=== PATIENT | female | born 1985 | race African-American/Black ===

== ENCOUNTER 2016-11-20 20:08 | Emergency (ER) | payer MEDICAID, OTHER ==
[~2016-11-20] VITALS: Ht 157.5 cm; Wt 57.2 kg
[~2016-11-20 20:08] MED LIST: ALBUTEROL SULF8.5 GM INH; AZITHROMYCIN250 MG ORAL; BENADRYL25 MG ORAL; BENADRYL25 MG PO; BENADRYL50 MG ORAL; CEPHALEXIN500 MG ORAL; CIPRO500 MG PO; CIPROFLOXACIN500 M2 ORAL; COLACE100 MG PO; DILAUDID1 MG/1 ML ORAL; DILAUDID4 MG ORAL; DSS100 MG ORAL; FERROUS SULFAT325 MG PO; FOLIC ACID1 MG ORAL; HYDREA500 MG PO; ILOTYCIN3.5 GM TOP; MACROBID 100 M100 MG PO; MACROBID100 MG ORAL; METROGEL-VAGINA70 G1 VAGIN; METRONIDAZOLE500 MG ORAL; NKM; NORCO 10-325 T1 EACH ORAL; NORCO 10/3251 EA ORAL; NORCO 5-325 TA1 EACH ORAL; NORCO 5/3251 TAB ORAL; NORCO1 EA ORAL; ONDANSETRON ODT4 MG ORAL; PERCOCET 10-321 EACH ORAL; PREDNISONE20 MG ORAL; TRAMADOL HCL50 MG ORAL; TYLENOL EXTRA500 MG ORAL; VICODIN 5-5001 EACH ORAL; ZANTAC150 MG PO; ZOFRAN ODT4 MG ORAL; ZOFRAN4 MG ORAL; ZOFRAN8 MG ORAL; ZOLOFT50 MG ORAL
[2016-11-20 20:20] VITALS: BP 118/86
[2016-11-20] MEDS ORDERED: HYDREA500 MG PO (20:26)
[2016-11-20] MEDS ORDERED: DiphenhydrAMINE 50mg/ml Inj IM ONE (20:30)
[2016-11-20] MEDS ORDERED: HYDROmorphone 1mg/ml Carpuject IM ONE (20:30)
--- NOTE | 2016-11-20 20:48 | Emergency Room Report ---
History of Present Illness General Chief Complaint: Pain Source: Patient Present Illness HPI 31YOF c.o bilateral hip pain for 2 days. Believes its her "sickle cell pain crisis." Been taking Q4-6 dilaudid PO at home and percocet for breakthru pain without much improvement and "didnt want to overdose." Denies chest pain, SOB, fever/chills, palpitations, syncope, dizziness. Last blood transfusion was 6 months prior. Ran out of hydroxyurea a few days ago as well. Also c/o foreign body sensation in both ears. [place] pain/itch to left ear, "tried to clean it out with long qtip" and believes something broke off. Allergies: Coded Allergies: METOCLOPRAMIDE (Verified Allergy, Mild, Rash, 07/27/12) KETOROLAC (Verified Allergy, Unknown, 11/25/13) MORPHINE (Verified Allergy, Unknown, 11/20/16) PROCHLORPERAZINE EDISYLATE (Verified Adverse Reaction, Intermediate, Shortness of Breath, 05/30/12) ANX PROCHLORPERAZINE MALEATE (Verified Adverse Reaction, Intermediate, Shortness of Breath, 05/30/12) ANX Patient History Past Medical History: other - SCD Past Surgical History: none Pertinent Family History: none Social History: Denies: alcohol use, drug use, smoking Last Menstrual Period: NOVEMBER 09 Now: No Immunizations: UTD Reviewed Nursing Documentation: PMH: Agreed, PSxH: Agreed Nursing Documentation-PMH Hx Hypertension: No Hx Pacemaker: No Hx Asthma: Yes Hx COPD: No Hx Diabetes: No Hx Cancer: No Hx Neurological Problems: No Hx Cerebrovascular Accident: No Hx Seizures: No Review of Systems All Other Systems: negative except mentioned in HPI Physical Exam Vital Signs Date Time Temp Pulse Resp B/P Pulse Ox O2 Delivery O2 Flow Rate FiO2 11/20/16 20:12 98.8 86 18 120/84 96 Room Air Sp02 EP Interpretation: reviewed, normal General Appearance: normal inspection, well appearing, no apparent distress, alert, GCS 15, non-toxic Head: normocephalic, atraumatic Eyes: bilateral eye EOMI, bilateral eye PERRL ENT: hearing grossly normal, normal pharynx, no angioedema, normal voice, other - Left ear canal: 2 foreign bodies visualized, one plastic, one cotton. After removal, TM is bulging with canal erythema. Also cotton visualized in right ear canal. TM normal after FB removed Neck: normal inspection, full range of motion, supple, no bony tend Respiratory: normal inspection, lungs clear, normal breath sounds, no rhonchi, no respiratory distress, no retraction, no accessory muscle use, no wheezing Cardiovascular #1: regular rate, rhythm, no edema Gastrointestinal: normal inspection, normal bowel sounds, non tender, soft, no guarding, no hernia Genitourinary: no CVA tenderness Musculoskeletal: normal inspection, back normal, normal range of motion, Hoa' s Sign negative Neurologic: normal inspection, alert, oriented x3, responsive, food service III-XII nml as tested, motor strength/tone normal, speech normal Psychiatric: normal inspection, judgement/insight normal, mood/affect normal Skin: normal inspection, normal color, no rash Procedures Additional Procedure Procedure Narrative Foreign body removal both ears 2X FBs removed from left ear under otoscope light guidance 1x FB removed from right ear Medical Decision Making Diagnostic Impression: Primary Impression: chronic pain Additional Impressions: Foreign body of ear, left Qualified Codes: T16.2XXA - Foreign body in left ear, initial encounter Foreign body of ear, right Qualified Codes: T16.1XXA - Foreign body in right ear, initial encounter Otitis media of left ear ER Course Body pain - low suspicion for acute chest syndrome as patient denies chest pain, SOB, fever/chills, URI symptoms. VSS. Not hypoxic or tachycardic. Normotensive - ?whether is actual sickle cell pain crisis - Patient refused IV access, lab testing. States "I just need a pain injection. " - Hydroxyurea refilled Foreign bodies removed from both ears Underlying left otitis media Rx Abx PMD followup Last Vital Signs Date Time Temp Pulse Resp B/P Pulse Ox O2 Delivery O2 Flow Rate FiO2 11/20/16 20:20 98.6 82 17 118/86 98 Room Air Status: improved Disposition: HOME, SELF-CARE Condition: Improved Scripts Amoxicillin* (AMOXIL*) 500 Mg Capsule 500 MG ORAL THREE TIMES A DAY for 7 Days, #21 CAP Prov: KVNG OLIVAREZ M.D. 11/20/16 Hydroxyurea* (HYDREA*) 500 Mg Capsule 500 MG PO BID for 30 Days, #60 CAP Prov: KVNG OLIVAREZ M.D. 11/20/16 Referrals: [facility] (PCP) Patient Instructions: Chronic Pain KVNG OLIVAREZ M.D. November 20, 2016 20:48
[2016-11-20] MEDS ORDERED: AMOXICILLIN500 MG ORAL (21:00)
[2016-11-20 21:10] VITALS: BP 122/79
== END 2016-11-20 21:10 | disposition home or self-care (01) ==
LOC: EMR 20:25
DX: G89.29 Other chronic pain (principal); T16.2XXA Foreign body in left ear, initial encounter; T16.1XXA Foreign body in right ear, initial encounter; X58.XXXA Exposure to other specified factors, initial encounter; Y93.9 Activity, unspecified; Y99.9 Unspecified external cause status; H66.92 Otitis media, unspecified, left ear; D57.1 Sickle-cell disease without crisis; J45.909 Unspecified asthma, uncomplicated; M25.551 Pain in right hip; M25.552 Pain in left hip; Z88.5 Allergy status to narcotic agent
CPT/HCPCS: 69200; 96372; 99284; J1170; J1200; Z7502

== ENCOUNTER 2016-11-30 03:09 | Emergency (ER) | payer MEDICAID, OTHER ==
[~2016-11-30] VITALS: Ht 157.5 cm; Wt 54.4 kg
[~2016-11-30 03:09] MED LIST changes: +AMOXICILLIN500 MG ORAL
[2016-11-30 03:19] VITALS: BP 114/80
--- NOTE | 2016-11-30 03:39 | Emergency Room Report ---
History of Present Illness General Chief Complaint: Pain Source: Patient Present Illness HPI Patient presents with complaints of body pain And reporting sickle cell crisis Patient reports that she had some epigastric discomfort and diarrhea as well Denies any chest pain or shortness of breath denies any back or flank pain Denies any vomiting Symptoms ongoing for the past 2-3 days Denies any rash Allergies: Coded Allergies: METOCLOPRAMIDE (Verified Allergy, Mild, Rash, 07/27/12) KETOROLAC (Verified Allergy, Unknown, 11/25/13) MORPHINE (Verified Allergy, Unknown, 11/20/16) PROCHLORPERAZINE EDISYLATE (Verified Adverse Reaction, Intermediate, Shortness of Breath, 05/30/12) ANX PROCHLORPERAZINE MALEATE (Verified Adverse Reaction, Intermediate, Shortness of Breath, 05/30/12) ANX Patient History Past Medical History: see triage record Pertinent Family History: none Last Menstrual Period: 11/08/16 Now: No Reviewed Nursing Documentation: PMH: Agreed, PSxH: Agreed Nursing Documentation-PMH Hx Hypertension: No Hx Pacemaker: No Hx Asthma: Yes Hx COPD: No Hx Diabetes: No Hx Cancer: No Hx Neurological Problems: No Hx Cerebrovascular Accident: No Hx Seizures: No Review of Systems All Other Systems: negative except mentioned in HPI Physical Exam Vital Signs Date Time Temp Pulse Resp B/P Pulse Ox O2 Delivery O2 Flow Rate FiO2 11/30/16 03:12 97.7 65 16 114/80 100 Sp02 EP Interpretation: reviewed, normal General Appearance: well appearing, no apparent distress Head: normocephalic, atraumatic Eyes: bilateral eye EOMI, bilateral eye PERRL ENT: hearing grossly normal, normal pharynx, TMs + canals normal, uvula midline Neck: full range of motion, supple, no meningismus, no bony tend Respiratory: lungs clear, normal breath sounds, no rhonchi, no respiratory distress, no retraction, no accessory muscle use Cardiovascular #1: normal peripheral pulses, regular rate, rhythm, no edema, no gallop, no JVD, no murmur Gastrointestinal: normal bowel sounds, non tender, soft, no mass, no organomegaly, non-distended, no guarding, no hernia, no pulsatile mass, no rebound Genitourinary: no CVA tenderness Musculoskeletal: normal inspection Neurologic: oriented x3, responsive, cnc field service engineer III-XII nml as tested, motor strength/ tone normal, sensory intact Psychiatric: mood/affect normal Skin: normal color, no rash, warm/dry, palpation normal Lymphatic: normal inspection, no adenopathy Medical Decision Making Diagnostic Impression: Primary Impression: Opioid dependence Additional Impression: Myalgia ER Course Multiple differentials considered including but not limited to sickle cell crisis, gastroenteritis, appendicitis, UTI Patient did not provide urine sample for testing Initially reported that she would usually get IM injection of pain medicine At this time she was informed that were pending on blood work the for further intervention She did receive Zofran and oxygenation Patient's reticulocyte count is normal I had discussion with her regarding her pain syndrome, and her presumption of sickle cell crisis She requires better outpatient followup Labs Test 11/30/16 03:45 White Blood Count 6.5 K/UL (4.8-10.8) Red Blood Count 3.70 M/UL (4.20-5.40) Hemoglobin 9.3 G/DL (12.0-16.0) Hematocrit 30.3 % (37.0-47.0) Mean Corpuscular Volume 82 FL (80-99) Mean Corpuscular Hemoglobin 25.3 PG (27.0-31.0) Mean Corpuscular Hemoglobin Concent 30.8 G/DL (32.0-36.0) Red Cell Distribution Width 15.1 % (11.6-14.8) Platelet Count 293 K/UL (150-450) Mean Platelet Volume 6.9 FL (6.5-10.1) Neutrophils (%) (Auto) 44.2 % (45.0-75.0) Lymphocytes (%) (Auto) 46.5 % (20.0-45.0) Monocytes (%) (Auto) 5.5 % (1.0-10.0) Eosinophils (%) (Auto) 2.6 % (0.0-3.0) Basophils (%) (Auto) 1.2 % (0.0-2.0) Reticulocyte Count 1.0 % (0.0-2.0) Sodium Level 139 mEQ/L (135-145) Potassium Level 3.6 mEQ/L (3.4-4.9) Chloride Level 103 mEQ/L (98-107) Carbon Dioxide Level 24 mEQ/L (20-30) Anion Gap 12 (5-15) Blood Urea Nitrogen 13 mg/dL (7-23) Creatinine 0.7 mg/dL (0.5-0.9) Estimat Glomerular Filtration Rate > 60 mL/min (>60) Glucose Level 97 mg/dL (74-106) Calcium Level 8.5 mg/dL (8.6-10.2) Lipase 63 U/L (< 60) Last Vital Signs Date Time Temp Pulse Resp B/P Pulse Ox O2 Delivery O2 Flow Rate FiO2 11/30/16 03:19 97.7 66 16 114/80 100 Status: improved Disposition: HOME, SELF-CARE Condition: Improved Referrals: [facility] (PCP) Additional Instructions: Patient is provided with the discharge instructions notified to follow up with primary doctor in the next 2-3 days otherwise return to the er with any worsening symptoms. Please note that this report is being documented using [employer] technology. This can lead to erroneous entry secondary to incorrect interpretation by the dictating instrument. YANELY SPARKS D.O. Nov 30, 2016 03:39
[2016-11-30 03:56] LABS: BASOPHILS % (AUTO) 1.2 % (0.0-2.0); EOSINOPHILS % (AUTO) 2.6 % (0.0-3.0); LYMPHOCYTES % (AUTO) 46.5 % (20.0-45.0); MEAN CORPUSCULAR HEMOGLOBIN 25.3 PG (27.0-31.0); MEAN CORPUSCULAR HGB CONC 30.8 G/DL (32.0-36.0); MEAN CORPUSCULAR VOLUME 82 FL (80-99); MEAN PLATELET VOLUME 6.9 FL (6.5-10.1); MONOCYTES % (AUTO) 5.5 % (1.0-10.0); NEUTROPHILS % (AUTO) 44.2 % (45.0-75.0); PLATELET COUNT 293 K/UL (150-450); RED CELL DISTRIBUTION WIDTH 15.1 % (11.6-14.8); WHITE BLOOD COUNT 6.5 K/UL (4.8-10.8)
[2016-11-30 04:15] LABS: ANION GAP 12 (5-15); CALCIUM 8.5 mg/dL (8.6-10.2); CARBON DIOXIDE 24 mEQ/L (20-30); CHLORIDE 103 mEQ/L (98-107); CREATININE 0.7 mg/dL (0.5-0.9); GLOMERULAR FILTRATION RATE > 60 mL/min (>60); HEMOLYSIS 3; LIPASE 63 U/L (< 60); POTASSIUM 3.6 mEQ/L (3.4-4.9); SODIUM 139 mEQ/L (135-145)
[2016-11-30 04:55] VITALS: BP 121/67
[2016-11-30 05:00] VITALS: BP 114/80
== END 2016-11-30 05:00 | disposition home or self-care (01) ==
LOC: EMR 03:27
DX: F11.20 Opioid dependence, uncomplicated (principal); M79.1 Myalgia; J45.909 Unspecified asthma, uncomplicated; Z88.6 Allergy status to analgesic agent; Z88.8 Allergy status to other drugs, medicaments and biological substances
CPT/HCPCS: 36415; 80048; 83690; 85025; 85044; 99284

== ENCOUNTER 2017-01-01 19:01 | Emergency (ER) | payer OTHER ==
[~2017-01-01] VITALS: Ht 157.5 cm; Wt 57.2 kg
[2017-01-01 19:18] VITALS: BP 110/73
--- NOTE | 2017-01-01 19:29 | Emergency Room Report ---
History of Present Illness General Chief Complaint: Pain Source: Patient Present Illness HPI patient is a 31-year-old female who presents with chest pain and generalized also aches typical for her sickle cell crisis. Patient has a known history of sickle cell disease. She states her last episode was approximately one month ago. Patient denies any fevers or chills or any other new or concerning symptoms Allergies: Coded Allergies: METOCLOPRAMIDE (Verified Allergy, Mild, Rash, 07/27/12) KETOROLAC (Verified Allergy, Unknown, 11/25/13) MORPHINE (Verified Allergy, Unknown, 11/20/16) PROCHLORPERAZINE EDISYLATE (Verified Adverse Reaction, Intermediate, Shortness of Breath, 05/30/12) ANX PROCHLORPERAZINE MALEATE (Verified Adverse Reaction, Intermediate, Shortness of Breath, 05/30/12) ANX Patient History Past Medical History: see triage record Past Surgical History: none Pertinent Family History: none Social History: Reports: smoking Last Menstrual Period: 12/27/16 Now: No Nursing Documentation-[facility] Past Medical History: No History, Except For Hx Hypertension: No Hx Pacemaker: No Hx Asthma: Yes Hx COPD: No Hx Diabetes: No Hx Cancer: No Hx Neurological Problems: No Hx Cerebrovascular Accident: No Hx Seizures: No Review of Systems Constitutional: Denies: chills, fever Eye: Denies: blurred vision, double vision Respiratory: Denies: cough, shortness of breath Cardiovascular: Reports: chest pain, Denies: palpitations, syncope Gastrointestinal: Denies: abdominal pain, nausea, vomiting Genitourinary: Denies: discharge, dysuria Musculoskeletal: Reports: joint pain, Denies: back pain Skin: Denies: change in color, rash Neurological: Denies: headache, numbness, paresthesia Hematologic/Lymphatic: Denies: anemia, easy bleeding, easy bruising Allergic: Denies: hay fever, urticaria Physical Exam Vital Signs Date Time Temp Pulse Resp B/P Pulse Ox O2 Delivery O2 Flow Rate FiO2 01/01/17 19:07 98.2 80 15 110/73 100 Room Air Sp02 EP Interpretation: reviewed, normal General Appearance: alert, GCS 15, non-toxic, mild distress Head: normocephalic, atraumatic Eyes: bilateral eye PERRL, bilateral eye normal inspection ENT: hearing grossly normal, normal pharynx, no angioedema, normal voice, other - White tissue to the right external ear canal Neck: full range of motion, supple/symm/no masses Respiratory: chest non-tender, lungs clear, normal breath sounds, speaking full sentences Cardiovascular #1: regular rate, rhythm, no edema Gastrointestinal: normal bowel sounds, non tender, soft, non-distended, no guarding, no rebound Musculoskeletal: back normal, gait/station normal, normal range of motion, non- tender, calf tenderness Neurologic: alert, oriented x3, responsive, motor strength/tone normal, sensory intact, speech normal Skin: normal color, no rash, warm/dry, well hydrated Procedures Additional Procedure Procedure Narrative 4 body removal to the right ear canal. A Q-tip and tissue paper work move the right external ear canal by me using alligator forceps under direct visualization. Repeat examination after removal foreign body showed no evidence of tympanic membrane perforation or rupture, mild erythema to the canal but no abrasions or bleeding. Medical Decision Making ER Course patient is a 31-year-old sickle cell patient who presented with chest pain. Chest x-ray and EKG are unremarkable. Patient received pain medications with improvement. We are currently waiting on laboratory results to come backas the patient is a difficult stick. Patient also was noted to have foreign body to the right ear canal which has been removed by me. Patient will be signed out to the oncoming physician as my clinical shift has ended EKG Diagnostic Results EKG Time: 19:30 Rate: normal Rhythm: NSR ST Segments: no acute changes Chest X-Ray Diagnostic Results Chest X-Ray Diagnostic Results : Chest X-Ray Ordered: Yes # of Views/Limited/Complete: 1 View Indication: Chest Pain EP Interpretation: Yes Interpretation: no consolidation, no effusion, no pneumothorax, no acute cardiopulmonary disease Impression: No acute disease Interpreting ER Provider: electronically signed by Dr. Maurice Last Vital Signs Date Time Temp Pulse Resp B/P Pulse Ox O2 Delivery O2 Flow Rate FiO2 01/01/17 19:18 98.2 15 110/73 100 Room Air 01/01/17 19:07 80 Status: improved RITO MAURICE Jan 01, 2017 19:29
[2017-01-01] MEDS ORDERED: DiphenhydrAMINE 50mg/ml Inj IVP ONE (19:30)
[2017-01-01] MEDS ORDERED: Ondansetron ODT 8mg tab ORAL ONE (19:45)
[2017-01-01] MEDS ORDERED: DiphenhydrAMINE 50mg/ml Inj IM ONE (19:45)
[2017-01-01 21:22] VITALS: BP 124/86
[2017-01-01 23:04] LABS: BASOPHILS % (AUTO) 0.7 % (0.0-2.0); EOSINOPHILS % (AUTO) 2.1 % (0.0-3.0); LYMPHOCYTES % (AUTO) 43.9 % (20.0-45.0); MEAN CORPUSCULAR HEMOGLOBIN 26.6 PG (27.0-31.0); MEAN CORPUSCULAR HGB CONC 31.6 G/DL (32.0-36.0); MEAN CORPUSCULAR VOLUME 84 FL (80-99); MONOCYTES % (AUTO) 5.2 % (1.0-10.0); NEUTROPHILS % (AUTO) 48.2 % (45.0-75.0); PLATELET COUNT 299 K/UL (150-450); RED BLOOD COUNT 3.62 M/UL (4.20-5.40); RED CELL DISTRIBUTION WIDTH 14.1 % (11.6-14.8); WHITE BLOOD COUNT 9.1 K/UL (4.8-10.8)
[2017-01-01 23:25] LABS: ALANINE AMINOTRANSFERASE 10 U/L (3-33); ALBUMIN/GLOBULIN RATIO 1.4 (1.0-2.7); ANION GAP 10 (5-15); ASPARTATE AMINO TRANSFERASE 20 U/L (5-40); CALCIUM 9.3 mg/dL (8.6-10.2); CARBON DIOXIDE 27 mEQ/L (20-30); CHLORIDE 101 mEQ/L (98-107); CREATININE 0.8 mg/dL (0.5-0.9); GLOMERULAR FILTRATION RATE > 60 mL/min (>60); HEMOLYSIS 18; POTASSIUM 3.9 mEQ/L (3.4-4.9); SODIUM 138 mEQ/L (135-145); TOTAL PROTEIN 6.6 g/dL (6.6-8.7); TROPONIN I < 0.30 ng/mL (<=0.30)
[2017-01-02] MEDS ORDERED: HYDROmorphone 1mg/ml Carpuject IVP ONE (00:45)
[2017-01-02] MEDS ORDERED: NORCO 5-325 TA1 EACH ORAL (01:10)
[2017-01-02] MEDS ORDERED: HYDROmorphone 1mg/ml Carpuject IM ONE (01:15)
[2017-01-02] MEDS ORDERED: DiphenhydrAMINE 50mg/ml Inj IM ONE (01:15)
[2017-01-02 01:48] VITALS: BP 122/64
[2017-01-02 01:57] LABS: RETICULOCYTE COUNT 1.7 % (0.0-2.0)
--- NOTE | 2017-01-02 11:37 | Diagnostic Imaging Report ---
Indication: Chest pain Technique: One view of the chest Comparison: 03/16/2014 Findings: Lungs and pleural spaces are clear. Heart size is normal. No significant change Impression: No acute process
--- NOTE | 2017-01-02 13:30 | Cardiology Report ---
APPROVED REPORT EKG Measurement Heart [id number] Normal sinus rhythm Normal ECG
== END 2017-01-02 01:48 | disposition home or self-care (01) ==
LOC: EMR 19:38
DX: R07.89 Other chest pain (principal); D57.1 Sickle-cell disease without crisis; F17.200 Nicotine dependence, unspecified, uncomplicated; T16.1XXA Foreign body in right ear, initial encounter; X58.XXXA Exposure to other specified factors, initial encounter; Y92.9 Unspecified place or not applicable; J45.909 Unspecified asthma, uncomplicated
CPT/HCPCS: 36415; 69200; 71010; 80053; 84484; 85025; 85044; 93005; 96372; 96374; 99284; J1170; J1200; Q0162; Z7502

== ENCOUNTER 2017-01-07 10:51 | Emergency (ER) | payer OTHER ==
[~2017-01-07] VITALS: Ht 157.5 cm; Wt 57.2 kg
--- NOTE | 2017-01-07 11:07 | Emergency Room Report ---
History of Present Illness General Chief Complaint: Chest Pain Source: Patient Present Illness HPI Patient is a 31-year-old female who presented for chest pain. Patient had prior history of sickle cell disease. Patient was seen recently for similar type symptoms. Patient denied any fever. She denied any shortness of breath. Patient denied any cough. She had recently been seen was given pain medications emergency department. Patient is followed by Dr. Gonzalez to she reports having pain to her chest and back. This is typical for her prior episodes of pain. Allergies: Coded Allergies: METOCLOPRAMIDE (Verified Allergy, Mild, Rash, 07/27/12) KETOROLAC (Verified Allergy, Unknown, 11/25/13) MORPHINE (Verified Allergy, Unknown, 11/20/16) PROCHLORPERAZINE EDISYLATE (Verified Adverse Reaction, Intermediate, Shortness of Breath, 05/30/12) ANX PROCHLORPERAZINE MALEATE (Verified Adverse Reaction, Intermediate, Shortness of Breath, 05/30/12) ANX Patient History Past Medical History: see triage record Last Menstrual Period: 12/29/16 Now: No Reviewed Nursing Documentation: PMH: Agreed, PSxH: Agreed Nursing Documentation-PMH Hx Hypertension: No Hx Pacemaker: No Hx Asthma: Yes Hx COPD: No Hx Diabetes: No Hx Cancer: No Hx Neurological Problems: No Hx Cerebrovascular Accident: No Hx Seizures: No Review of Systems All Other Systems: negative except mentioned in HPI Physical Exam Vital Signs Date Time Temp Pulse Resp B/P Pulse Ox O2 Delivery O2 Flow Rate FiO2 01/07/17 10:56 98.4 92 14 99/67 95 Sp02 EP Interpretation: reviewed, normal General Appearance: normal inspection, well appearing, no apparent distress, alert, GCS 15 Head: atraumatic ENT: normal ENT inspection, hearing grossly normal, normal voice Neck: normal inspection, full range of motion, supple, no bony tend Respiratory: normal inspection, lungs clear, normal breath sounds, no respiratory distress, no retraction, no wheezing Cardiovascular #1: regular rate, rhythm, no edema Gastrointestinal: normal inspection, normal bowel sounds, non tender, soft, no guarding, no hernia Genitourinary: no CVA tenderness Musculoskeletal: normal inspection, back normal, normal range of motion Neurologic: normal inspection, alert, responsive, speech normal Psychiatric: normal inspection, judgement/insight normal, mood/affect normal Skin: normal inspection, normal color, no rash Medical Decision Making Diagnostic Impression: Primary Impression: Sickle cell disease with crisis ER Course Patient presented for sickle cell pain. Differential diagnosis included was not limited to sickle cell crisis, aplastic crisis, osteomyelitis drug-seeking behavior, among others. Because of complexity of patient's case laboratory testing and imaging studies were ordered. The patient was given pain medications.The patient noted have continued pain. Laboratory testing showed a slightly decreased reticulocyte count compared to baseline. Patient was noted to have continued pain. Patient was discussed with Dr. Carrasco who agreed to accept patient in transfer. Labs Test 01/07/17 11:15 White Blood Count 8.6 K/UL (4.8-10.8) Red Blood Count 3.39 M/UL (4.20-5.40) Hemoglobin 9.1 G/DL (12.0-16.0) Hematocrit 27.6 % (37.0-47.0) Mean Corpuscular Volume 81 FL (80-99) Mean Corpuscular Hemoglobin 26.8 PG (27.0-31.0) Mean Corpuscular Hemoglobin Concent 32.9 G/DL (32.0-36.0) Red Cell Distribution Width 13.6 % (11.6-14.8) Platelet Count 290 K/UL (150-450) Mean Platelet Volume 6.9 FL (6.5-10.1) Neutrophils (%) (Auto) 62.6 % (45.0-75.0) Lymphocytes (%) (Auto) 29.3 % (20.0-45.0) Monocytes (%) (Auto) 4.8 % (1.0-10.0) Eosinophils (%) (Auto) 2.3 % (0.0-3.0) Basophils (%) (Auto) 1.1 % (0.0-2.0) Sodium Level 141 mEQ/L (135-145) Potassium Level 3.9 mEQ/L (3.4-4.9) Chloride Level 104 mEQ/L (98-107) Carbon Dioxide Level 25 mEQ/L (20-30) Anion Gap 12 (5-15) Blood Urea Nitrogen 11 mg/dL (7-23) Creatinine 0.8 mg/dL (0.5-0.9) Estimat Glomerular Filtration Rate > 60 mL/min (>60) Glucose Level 112 mg/dL (74-106) Calcium Level 8.7 mg/dL (8.6-10.2) Total Bilirubin < 0.2 mg/dL (0.0-1.2) Aspartate Amino Transf (AST/SGOT) 28 U/L (5-40) Alanine Aminotransferase (ALT/SGPT) 10 U/L (3-33) Alkaline Phosphatase 78 U/L (35-104) Total Protein 6.3 g/dL (6.6-8.7) Albumin 3.5 g/dL (3.5-5.2) Globulin 2.8 g/dL Albumin/Globulin Ratio 1.2 (1.0-2.7) Last Vital Signs Date Time Temp Pulse Resp B/P Pulse Ox O2 Delivery O2 Flow Rate FiO2 01/07/17 10:56 98.4 92 14 99/67 95 Status: improved Dante Cardona Jan 07, 2017 11:07
[2017-01-07 11:10] VITALS: BP 116/82
[2017-01-07] MEDS ORDERED: DiphenhydrAMINE 50mg/ml Inj IM ONE (11:15)
[2017-01-07 11:41] LABS: BASOPHILS % (AUTO) 1.1 % (0.0-2.0); EOSINOPHILS % (AUTO) 2.3 % (0.0-3.0); LYMPHOCYTES % (AUTO) 29.3 % (20.0-45.0); MEAN CORPUSCULAR HEMOGLOBIN 26.8 PG (27.0-31.0); MEAN CORPUSCULAR HGB CONC 32.9 G/DL (32.0-36.0); MEAN CORPUSCULAR VOLUME 81 FL (80-99); MEAN PLATELET VOLUME 6.9 FL (6.5-10.1); MONOCYTES % (AUTO) 4.8 % (1.0-10.0); NEUTROPHILS % (AUTO) 62.6 % (45.0-75.0); PLATELET COUNT 290 K/UL (150-450); RED BLOOD COUNT 3.39 M/UL (4.20-5.40); RED CELL DISTRIBUTION WIDTH 13.6 % (11.6-14.8); WHITE BLOOD COUNT 8.6 K/UL (4.8-10.8)
[2017-01-07] MEDS ORDERED: HYDROmorphone 1mg/ml Carpuject IVP ONE ×2 (12:15→15:30)
[2017-01-07 12:24] LABS: ALANINE AMINOTRANSFERASE 10 U/L (3-33); ALBUMIN/GLOBULIN RATIO 1.2 (1.0-2.7); ANION GAP 12 (5-15); ASPARTATE AMINO TRANSFERASE 28 U/L (5-40); CALCIUM 8.7 mg/dL (8.6-10.2); CARBON DIOXIDE 25 mEQ/L (20-30); CHLORIDE 104 mEQ/L (98-107); CREATININE 0.8 mg/dL (0.5-0.9); GLOMERULAR FILTRATION RATE > 60 mL/min (>60); HEMOLYSIS 7; POTASSIUM 3.9 mEQ/L (3.4-4.9); SODIUM 141 mEQ/L (135-145); TOTAL PROTEIN 6.3 g/dL (6.6-8.7)
[2017-01-07 12:35] LABS: RETICULOCYTE COUNT 1.4 % (0.0-2.0)
[2017-01-07 13:30] VITALS: BP 112/82
[2017-01-07] MEDS ORDERED: DiphenhydrAMINE 50mg/ml Inj IVP ONE (13:30)
[2017-01-07 15:34] VITALS: BP 111/81
[2017-01-07 15:45] VITALS: BP 111/61
== END 2017-01-07 15:45 | disposition short-term general hospital (02) ==
LOC: EMR 11:08
DX: D57.00 Hb-SS disease with crisis, unspecified (principal); J45.909 Unspecified asthma, uncomplicated; Z88.8 Allergy status to other drugs, medicaments and biological substances
CPT/HCPCS: 36415; 80053; 85025; 85044; 93005; 96361; 96372; 96374; 96375; 99284; J1170; J1200

== ENCOUNTER 2017-01-13 23:40 | Emergency (ER) | payer OTHER ==
[~2017-01-13] VITALS: Ht 157.5 cm; Wt 57.2 kg
[2017-01-13 23:50] VITALS: BP 105/79
[2017-01-14] MEDS ORDERED: DiphenhydrAMINE 50mg/ml Inj IM ONE
--- NOTE | 2017-01-14 00:03 | Emergency Room Report ---
History of Present Illness General Chief Complaint: Pain Source: Patient Present Illness HPI This is a 31-year-old female presented after increased chest pain. Patient had recently been seen in this emergency department for similar type symptoms and was hospitalized after consent for sickle cell crisis. Patient had prior history of sickle cell disease. She reports being compliant with her medications. Patient had recently had her Haldol dosage increased. Patient stated that she had increased pain. Allergies: Coded Allergies: METOCLOPRAMIDE (Verified Allergy, Mild, Rash, 07/27/12) KETOROLAC (Verified Allergy, Unknown, 11/25/13) MORPHINE (Verified Allergy, Unknown, 11/20/16) PROCHLORPERAZINE EDISYLATE (Verified Adverse Reaction, Intermediate, Shortness of Breath, 05/30/12) ANX PROCHLORPERAZINE MALEATE (Verified Adverse Reaction, Intermediate, Shortness of Breath, 05/30/12) ANX Patient History Past Medical History: see triage record Last Menstrual Period: 12/29/16 Reviewed Nursing Documentation: PMH: Agreed, PSxH: Agreed Nursing Documentation-PMH Past Medical History: No History, Except For Hx Hypertension: No Hx Pacemaker: No Hx Asthma: Yes Hx COPD: No Hx Diabetes: No Hx Cancer: No Hx Neurological Problems: No Hx Cerebrovascular Accident: No Hx Seizures: No Review of Systems All Other Systems: negative except mentioned in HPI Physical Exam Vital Signs Date Time Temp Pulse Resp B/P Pulse Ox O2 Delivery O2 Flow Rate FiO2 01/13/17 23:48 98.2 95 16 105/79 100 Room Air Sp02 EP Interpretation: reviewed, normal General Appearance: normal inspection, well appearing, no apparent distress, alert, GCS 15, non-toxic Head: atraumatic ENT: normal ENT inspection, hearing grossly normal, normal voice Neck: normal inspection, full range of motion, supple, no bony tend Respiratory: normal inspection, lungs clear, normal breath sounds, no respiratory distress, no retraction, no wheezing Cardiovascular #1: regular rate, rhythm, no edema Gastrointestinal: normal inspection, normal bowel sounds, non tender, soft, no guarding, no hernia Genitourinary: no CVA tenderness Musculoskeletal: normal inspection, back normal, normal range of motion Neurologic: normal inspection, alert, responsive, speech normal Psychiatric: normal inspection, judgement/insight normal, mood/affect normal Skin: normal inspection, normal color, no rash Medical Decision Making Diagnostic Impression: Primary Impression: Opioid dependence Additional Impression: Sickle cell anemia ER Course Patient was at for chest pain. Because of complexity of patient's case laboratory testing and imaging studies were ordered. . Patient recently had imaging performed as well as cardiac workup. The patient was given IM pain medications.The patient had reportedly just had a laboratory workup done at transferred facility. The patient the was given pain medications. The patient had improvement her pain was subsequently discharge. Last Vital Signs Date Time Temp Pulse Resp B/P Pulse Ox O2 Delivery O2 Flow Rate FiO2 01/13/17 23:48 98.2 95 16 105/79 100 Room Air Status: improved Disposition: HOME, SELF-CARE Condition: Stable Dante Cardona Jan 14, 2017 00:03
[2017-01-14 01:11] VITALS: BP 102/77
== END 2017-01-14 01:11 | disposition home or self-care (01) ==
LOC: EMR 01-14 00:23
DX: F11.20 Opioid dependence, uncomplicated (principal); D57.1 Sickle-cell disease without crisis; J45.909 Unspecified asthma, uncomplicated; R07.9 Chest pain, unspecified; Z88.6 Allergy status to analgesic agent; Z88.8 Allergy status to other drugs, medicaments and biological substances
CPT/HCPCS: 96372; 99283; J1170; J1200

== ENCOUNTER 2017-01-31 13:04 | Emergency (ER) | payer OTHER ==
[~2017-01-31] VITALS: Ht 157.5 cm; Wt 57.2 kg
[2017-01-31 13:20] VITALS: BP 105/65
[2017-01-31] MEDS ORDERED: HYDROmorphone 1mg/ml Carpuject IM ONE (13:45)
[2017-01-31] MEDS ORDERED: DiphenhydrAMINE 50mg/ml Inj IM ONE (13:45)
[2017-01-31 14:35] LABS: APPEARANCE,URINE SLIGHTLY CLOUDY; KETONES,URINE NEGATIVE (NEGATIVE); LEUKOCYTE ESTERASE ,URINE NEGATIVE (NEGATIVE); NITRITE,URINE NEGATIVE (NEGATIVE); PH,URINE 5 (4.5-8.0); PROTEIN,URINE NEGATIVE (NEGATIVE); UROBILINOGEN,URINE NORMAL MG/DL (0.0-1.0)
[2017-01-31 14:52] LABS: BACTERIA,URINE MODERATE /HPF; RBC,URINE 0-2 /HPF (0 - 2); SQUAMOUS EPITHELIAL CELL,UR MODERATE /LPF (NONE/OCC); WBC,URINE 0-2 /HPF (0 - 2)
[2017-01-31 14:53] LABS: AMORPHOUS SEDIMENT,UR FEW /LPF; MUCUS,URINE FEW /LPF (NONE/OCC)
[2017-01-31 14:59] VITALS: BP 108/68
[2017-01-31 15:00] VITALS: BP 108/68
--- NOTE | 2017-01-31 16:29 | Emergency Room Report ---
History of Present Illness General Chief Complaint: Pain Source: Patient Present Illness HPI 31-year-old female presents to ER for evaluation. Patient has history of sickle cell and states she is having a crisis. Patient complaining of bilateral hip pain. Pain is a 10 out of 10, throbbing, nonradiating. Started today. Denies chest pain or shortness of breath. Denies fevers chills. Patient states she does not have any medication for pain. No other aggravating relieving factors. phil any other associated symptoms Allergies: Coded Allergies: METOCLOPRAMIDE (Verified Allergy, Mild, Rash, 07/27/12) KETOROLAC (Verified Allergy, Unknown, 11/25/13) MORPHINE (Verified Allergy, Unknown, 11/20/16) PROCHLORPERAZINE EDISYLATE (Verified Adverse Reaction, Intermediate, Shortness of Breath, 05/30/12) ANX PROCHLORPERAZINE MALEATE (Verified Adverse Reaction, Intermediate, Shortness of Breath, 05/30/12) ANX Patient History Past Medical History: asthma Past Surgical History: none Pertinent Family History: none Social History: Denies: alcohol use, drug use, smoking Last Menstrual Period: 01/19/17 Now: No Immunizations: UTD Reviewed Nursing Documentation: PMH: Agreed, PSxH: Agreed Nursing Documentation-PMH Hx Hypertension: No Hx Pacemaker: No Hx Asthma: Yes Hx COPD: No Hx Diabetes: No Hx Cancer: No Hx Neurological Problems: No Hx Cerebrovascular Accident: No Hx Seizures: No Review of Systems All Other Systems: negative except mentioned in HPI Physical Exam Vital Signs Date Time Temp Pulse Resp B/P Pulse Ox O2 Delivery O2 Flow Rate FiO2 01/31/17 13:12 98.2 109 16 105/65 97 Room Air Sp02 EP Interpretation: reviewed General Appearance: normal inspection Head: normocephalic ENT: normal ENT inspection Neck: normal inspection Respiratory: chest non-tender, lungs clear, normal breath sounds, speaking full sentences Cardiovascular #1: regular rate, rhythm, no edema Gastrointestinal: normal bowel sounds, non tender, soft, non-distended, no guarding, no rebound Rectal: deferred Genitourinary: no CVA tenderness Musculoskeletal: back normal, gait/station normal, normal range of motion, non- tender Neurologic: alert, oriented x3, responsive, motor strength/tone normal, sensory intact, speech normal Psychiatric: normal inspection Skin: normal inspection Lymphatic: normal inspection Medical Decision Making Diagnostic Impression: Primary Impression: chronic pain Additional Impressions: Opioid dependence Sickle cell trait ER Course Hospital Course 31-year-old F presents ED complaining of generalized body pain, h/o sickle cell Differential diagnoses include: NV/unstable angina, sickle cell crisis, sepsis, UTI, pneumonia Clinical course Patient placed on stretcher. on cafeteria monitor. she reports has very poor IV access. She agrees to one attempt for IV blood draw. IV blood draw isn't successful and she refuses further attempts. Last 2 visits patient had blood work which was normal. Patient agreed to IM medications here Given Dilaudid IM and Benadryl IM with pain improved Diagnosis - sickle cell trait, opioid dependence, chronic pain Stable and discharged to home. Followup with PMD. Return to ED if symptoms recur or worsen Last Vital Signs Date Time Temp Pulse Resp B/P Pulse Ox O2 Delivery O2 Flow Rate FiO2 01/31/17 15:00 98.2 98 16 108/68 97 Room Air Status: improved Disposition: HOME, SELF-CARE Condition: Stable Referrals: [facility] (PCP) Patient Instructions: Sickle Cell Anemia, Adult, [id number] NIKI MCCORMICK M.D. Jan 31, 2017 16:29
== END 2017-01-31 15:01 | disposition home or self-care (01) ==
LOC: EMR 14:01
DX: G89.29 Other chronic pain (principal); D57.3 Sickle-cell trait; F11.20 Opioid dependence, uncomplicated; J45.909 Unspecified asthma, uncomplicated; Z88.6 Allergy status to analgesic agent; Z88.8 Allergy status to other drugs, medicaments and biological substances
CPT/HCPCS: 81003; 81025; 87086; 96372; 99283; J1170; J1200

== ENCOUNTER 2017-02-26 21:40 | Emergency (ER) | payer OTHER ==
[~2017-02-26] VITALS: Ht 157.5 cm; Wt 55.3 kg
[2017-02-26 22:00] VITALS: BP 116/77
[2017-02-26] MEDS ORDERED: HYDROmorphone 1mg/ml Carpuject IM ONE (22:15)
--- NOTE | 2017-02-26 23:00 | Emergency Room Report ---
History of Present Illness General Chief Complaint: Pain Source: Patient Present Illness HPI Is a 31-year-old female with a history of sickle cell. She present to the ER with chief complaint of sickle cell pain. She's been here numerous times for the same thing. Onset for last few days. No nausea no vomiting. Pain is to her joints. 10 out of 10. Still taking her medication. Denies any other complaint. Allergies: Coded Allergies: METOCLOPRAMIDE (Verified Allergy, Mild, Rash, 07/27/12) KETOROLAC (Verified Allergy, Unknown, 11/25/13) MORPHINE (Verified Allergy, Unknown, 11/20/16) PROCHLORPERAZINE EDISYLATE (Verified Adverse Reaction, Intermediate, Shortness of Breath, 05/30/12) ANX PROCHLORPERAZINE MALEATE (Verified Adverse Reaction, Intermediate, Shortness of Breath, 05/30/12) ANX Patient History Past Medical History: see triage record, old chart reviewed Past Surgical History: other Pertinent Family History: none Social History: Denies: smoking Last Menstrual Period: Jan Now: No Immunizations: other Reviewed Nursing Documentation: PMH: Agreed, PSxH: Agreed Nursing Documentation-PMH Hx Hypertension: No Hx Pacemaker: No Hx Asthma: Yes Hx COPD: No Hx Diabetes: No Hx Cancer: No Hx Neurological Problems: No Hx Cerebrovascular Accident: No Hx Seizures: No Review of Systems Eye: Denies: eye pain, blurred vision ENT: Denies: ear pain, nose congestion, throat swelling Respiratory: Denies: cough, shortness of breath Cardiovascular: Denies: chest pain, palpitations Gastrointestinal: Denies: abdominal pain, diarrhea, nausea, vomiting Musculoskeletal: Reports: back pain, joint pain Skin: Denies: rash Neurological: Denies: headache, numbness Endocrine: Denies: increased thirst, increased urine Hematologic/Lymphatic: Denies: easy bruising All Other Systems: negative except mentioned in HPI Physical Exam Vital Signs Date Time Temp Pulse Resp B/P (MAP) Pulse Ox O2 Delivery O2 Flow Rate FiO2 02/26/17 21:49 97.9 76 18 116/77 98 Room Air vitals normal Sp02 EP Interpretation: reviewed, normal General Appearance: well appearing, no apparent distress, alert, other - Patient was sleeping when I came in Head: normocephalic, atraumatic Eyes: bilateral eye PERRL, bilateral eye EOMI ENT: hearing grossly normal, normal pharynx Neck: full range of motion, supple, no meningismus Respiratory: chest non-tender, lungs clear, normal breath sounds Cardiovascular #1: regular rate, rhythm, no murmur Gastrointestinal: normal bowel sounds, non tender, no mass, no organomegaly, no bruit, non-distended Musculoskeletal: back normal - Lower back pain, gait/station normal, normal range of motion Psychiatric: mood/affect normal Skin: warm/dry Medical Decision Making Diagnostic Impression: Primary Impression: Sickle cell pain crisis Additional Impression: Opioid dependence Qualified Codes: F11.20 - Opioid dependence, uncomplicated ER Course Patient presents with sickle cell crisis pain. I suspect is an opioid dependence and drug-seeking behavior. She is comfortable. No evidence of aplastic crisis acute chest syndrome. We'll discharge home. Last Vital Signs Date Time Temp Pulse Resp B/P (MAP) Pulse Ox O2 Delivery O2 Flow Rate FiO2 02/26/17 22:00 97.9 18 116/77 98 Room Air 02/26/17 21:49 76 Status: improved Disposition: HOME, SELF-CARE Condition: Stable Additional Instructions: Followup with your DrDivya in 3-5 days. Return if symptom worsen. RAPHAEL MEDIAN M.D. Feb 26, 2017 23:00
[2017-02-26 23:16] VITALS: BP 119/84
== END 2017-02-26 23:16 | disposition home or self-care (01) ==
LOC: EMR 22:00
DX: D57.00 Hb-SS disease with crisis, unspecified (principal); R52 Pain, unspecified; F11.20 Opioid dependence, uncomplicated; J45.909 Unspecified asthma, uncomplicated; Z88.8 Allergy status to other drugs, medicaments and biological substances; Z88.6 Allergy status to analgesic agent
CPT/HCPCS: 96372; 99284; J1170

== ENCOUNTER 2017-03-01 15:51 | Emergency (ER) | payer OTHER ==
[~2017-03-01] VITALS: Ht 157.5 cm; Wt 59.0 kg
[2017-03-01 16:05] VITALS: BP 112/73
[2017-03-01] MEDS ORDERED: oxyCODONE HCL/Acetaminophen 5/325mg ORAL ONE (17:00)
[2017-03-01 17:25] VITALS: BP 112/73
--- NOTE | 2017-03-01 17:26 | Diagnostic Imaging Report ---
Indication: PAIN Technique: One view of the chest Comparison: 01/01/2017 Findings: Lungs and pleural spaces are clear. Heart size is normal. No significant interim change Impression: No acute process
--- NOTE | 2017-03-01 17:58 | Emergency Room Report ---
History of Present Illness General Chief Complaint: Pain Source: Patient Present Illness HPI 31-year-old female presents to the emergency department complaining of 10 out of 10 in severity right-sided chest pain, low back pain, bilateral hip pain x2 days. Patient states that her chest pain has not returned since this a.m. Patient denies cough, fevers, chills, nausea, vomiting. Patient reports history of sickle cell and states that her symptoms are consistent with previous episodes of sickle cell crisis. Patient reports that she has a hard stick and usually tolerates IM Dilaudid while with oral fluids. Patient denies having primary care provider and states that she is currently in between insurances and has not established herself with someone in several months. Patient reports that she takes hydroxyurea daily and continues to take that medication. Patient states she's not regularly prescribed pain medication. Denies Palpitations, LOC, AMS, dizziness, Changes in Vision, Sensation, paresthesias, or a sudden severe headache. Allergies: Coded Allergies: METOCLOPRAMIDE (Verified Allergy, Mild, Rash, 07/27/12) KETOROLAC (Verified Allergy, Unknown, 11/25/13) MORPHINE (Verified Allergy, Unknown, 11/20/16) PROCHLORPERAZINE EDISYLATE (Verified Adverse Reaction, Intermediate, Shortness of Breath, 05/30/12) ANX PROCHLORPERAZINE MALEATE (Verified Adverse Reaction, Intermediate, Shortness of Breath, 05/30/12) ANX Patient History Past Medical History: see triage record Past Surgical History: none Pertinent Family History: none Last Menstrual Period: 02/09/17 Now: No Reviewed Nursing Documentation: PMH: Agreed, PSxH: Agreed Nursing Documentation-PMH Hx Hypertension: No Hx Pacemaker: No Hx Asthma: Yes Hx COPD: No Hx Diabetes: No Hx Cancer: No Hx Neurological Problems: No Hx Cerebrovascular Accident: No Hx Seizures: No Physical Exam Vital Signs Date Time Temp Pulse Resp B/P (MAP) Pulse Ox O2 Delivery O2 Flow Rate FiO2 03/01/17 16:02 98.2 75 19 112/73 100 Room Air Sp02 EP Interpretation: reviewed, normal General Appearance: no apparent distress, alert, GCS 15, non-toxic Head: normocephalic, atraumatic Eyes: bilateral eye normal inspection, bilateral eye PERRL ENT: hearing grossly normal, normal pharynx, no angioedema, normal voice Neck: full range of motion, supple/symm/no masses Respiratory: chest non-tender, lungs clear, normal breath sounds, speaking full sentences Cardiovascular #1: regular rate, rhythm, no edema Gastrointestinal: normal bowel sounds, non tender, soft, no guarding, no rebound Rectal: deferred Genitourinary: normal inspection, no CVA tenderness Musculoskeletal: back normal, gait/station normal, normal range of motion, non- tender - no bony TTP Neurologic: alert, oriented x3, responsive, motor strength/tone normal, sensory intact, normal gait, speech normal Psychiatric: judgement/insight normal, memory normal, mood/affect normal Skin: normal color, no rash, warm/dry, well hydrated Lymphatic: no adenopathy Medical Decision Making PA Attestation Dr. Cerda is my supervising Physician whom patient management has been discussed with. Diagnostic Impression: Primary Impression: Pain Additional Impressions: Sickle cell disease with crisis Sickle cell pain crisis Drug-seeking behavior Opioid dependence Qualified Codes: F11.20 - Opioid dependence, uncomplicated ER Course 31-year-old female presents to the emergency department complaining of 10 out of 10 in severity right-sided chest pain, low back pain, bilateral hip pain x2 days. Patient states that her chest pain has not returned since this a.m. Patient denies cough, fevers, chills, nausea, vomiting. Patient reports history of sickle cell and states that her symptoms are consistent with previous episodes of sickle cell crisis. Patient reports that she has a hard stick and usually tolerates IM Dilaudid while with oral fluids. Patient denies having primary care provider and states that she is currently in between insurances and has not established herself with someone in several months. Patient reports that she takes hydroxyurea daily and continues to take that medication. Patient states she's not regularly prescribed pain medication. Denies Palpitations, LOC, AMS, dizziness, Changes in Vision, Sensation, paresthesias, or a sudden severe headache. Ddx considered but are not limited to Sickle cell crisis, Infection, Cardiac pathology, DVT, Fracture, Dislocation, OPIOID DEPENDENCE, DRUG SEEKING BEHAVIOR. Vital signs: are WNL, pt. is afebrile H&PE are most consistent with Sickle cell crisis ORDERS: - Basic Labs and Reticulocyte Count Ordered: Pt. Declined Second Lab draw. - CXR 1 View: No consolidation, effusion, pneumothorax or acute cardiopulmonary findings, No Acute process per official radiology report. ED INTERVENTIONS: - 5mg Percocet PO ---- Pt. Declined and requested IM Dilaudid. - 1000cc liters NS for hydration. --- was not administered as IV access was not established. - After multiple requests for IM Dilaudid, Pt. requested to be seen by Attending Physician for consideration of IM pain medication. Pt. requests to Leave AMA. I do not suspect an emergent condition at this time. with current presentation pt. appears in stable condition NAD, with a normal cxr , a febrile. She is A & O x 4 and able to make her own decisions regarding her medical care. Pt. is encouraged to stay and continue with current medical evaluation before medical clearance can be established. pt. Declines and requests AMA. DISPOSITION: Pt. Requests multiple times to leave the ED AMA. - At this time the patient is requesting to leave AGAINST MEDICAL ADVICE. I believe that this patient has the capacity to make decisions on her own. I discussed with the patient the risks of leaving AMA. Some of these risks include delay in diagnosis and treatment, as well as worsening of symptoms, organ damage, and permanent disability or even . After discussing these risks with the patient, She continues to express Her desire to leave AGAINST MEDICAL ADVICE. I encouraged the patient to return at any time, and that she will be welcome here in the emergency department to continue medical management. Last Vital Signs Date Time Temp Pulse Resp B/P (MAP) Pulse Ox O2 Delivery O2 Flow Rate FiO2 03/01/17 17:25 98.2 19 112/73 100 Room Air 03/01/17 16:02 75 Disposition: AGAINST MEDICAL ADVICE Condition: Unknown Referrals: [facility]ERR[facility] (PCP) Fallon Falcon Mar 01, 2017 17:58
== END 2017-03-01 17:25 | disposition left against medical advice (07) ==
LOC: EMR 16:40
DX: D57.00 Hb-SS disease with crisis, unspecified (principal); F11.20 Opioid dependence, uncomplicated; Z76.5 Malingerer [conscious simulation]; J45.909 Unspecified asthma, uncomplicated
CPT/HCPCS: 71010; 99282

== ENCOUNTER 2017-03-15 17:50 | Emergency (ER) | payer OTHER ==
[~2017-03-15] VITALS: Ht 157.5 cm; Wt 59.0 kg
[2017-03-15 18:15] VITALS: BP 128/75
[2017-03-15 19:26] LABS: BASOPHILS % (AUTO) 1.4 % (0.0-2.0); EOSINOPHILS % (AUTO) 3.5 % (0.0-3.0); LYMPHOCYTES % (AUTO) 34.6 % (20.0-45.0); MEAN CORPUSCULAR HEMOGLOBIN 25.6 PG (27.0-31.0); MEAN CORPUSCULAR HGB CONC 31.7 G/DL (32.0-36.0); MEAN CORPUSCULAR VOLUME 81 FL (80-99); MEAN PLATELET VOLUME 6.2 FL (6.5-10.1); MONOCYTES % (AUTO) 8.3 % (1.0-10.0); NEUTROPHILS % (AUTO) 52.2 % (45.0-75.0); PLATELET COUNT 389 K/UL (150-450); RED BLOOD COUNT 3.86 M/UL (4.20-5.40); RED CELL DISTRIBUTION WIDTH 13.8 % (11.6-14.8); WHITE BLOOD COUNT 6.3 K/UL (4.8-10.8)
[2017-03-15 19:42] LABS: ALANINE AMINOTRANSFERASE 7 U/L (3-33); ALBUMIN/GLOBULIN RATIO 1.1 (1.0-2.7); ANION GAP 11 (5-15); ASPARTATE AMINO TRANSFERASE 19 U/L (5-40); CALCIUM 9.2 mg/dL (8.6-10.2); CARBON DIOXIDE 29 mEQ/L (20-30); CHLORIDE 100 mEQ/L (98-107); CREATININE 0.7 mg/dL (0.5-0.9); GLOMERULAR FILTRATION RATE > 60 mL/min (>60); HEMOLYSIS 0; POTASSIUM 3.5 mEQ/L (3.4-4.9); SODIUM 140 mEQ/L (135-145)
[2017-03-15 20:10] LABS: RETICULOCYTE COUNT 0.7 % (0.0-2.0)
[2017-03-15 20:20] VITALS: BP 122/72
[2017-03-15 20:27] VITALS: BP 128/75
--- NOTE | 2017-03-16 10:18 | Diagnostic Imaging Report ---
Indication: COUGH Technique: One view of the chest Comparison: 03/01/2017 Findings: Lungs and pleural spaces are clear. Heart size is normal. No significant change Impression: No acute process
--- NOTE | 2017-03-17 09:06 | Emergency Room Report ---
History of Present Illness General Chief Complaint: Pain Source: Patient Present Illness HPI 31-year-old female presents to ED for evaluation. Patient states the last few days she's been having a cough and generalized body pain. Patient states she has history of sickle cell disease. patient states she is having a crisis. Patient states pain is a 10 out of 10, throbbing, nonradiating. States cough is dry. Denies fevers or chills. Denies chest pain or shortness of breath. Patient is well-known [facility] has been here multiple times for similar presentation. No other aggravating relieving factors. Denies any other associated symptom Allergies: Coded Allergies: METOCLOPRAMIDE (Verified Allergy, Mild, Rash, 07/27/12) KETOROLAC (Verified Allergy, Unknown, 11/25/13) MORPHINE (Verified Allergy, Unknown, 11/20/16) PROCHLORPERAZINE EDISYLATE (Verified Adverse Reaction, Intermediate, Shortness of Breath, 05/30/12) ANX PROCHLORPERAZINE MALEATE (Verified Adverse Reaction, Intermediate, Shortness of Breath, 05/30/12) ANX Patient History Past Medical History: asthma Past Surgical History: none Pertinent Family History: none Social History: Denies: smoking, alcohol use, drug use Last Menstrual Period: 03/10/17 Now: No : 4 Para: 2 Immunizations: UTD Reviewed Nursing Documentation: PMH: Agreed, PSxH: Agreed Nursing Documentation-PMH Hx Hypertension: No Hx Pacemaker: No Hx Asthma: Yes Hx COPD: No Hx Diabetes: No Hx Cancer: No Hx Neurological Problems: No Hx Cerebrovascular Accident: No Hx Seizures: No Review of Systems All Other Systems: negative except mentioned in HPI Physical Exam Vital Signs Date Time Temp Pulse Resp B/P (MAP) Pulse Ox O2 Delivery O2 Flow Rate FiO2 03/15/17 18:04 98.1 71 14 113/76 97 Room Air Sp02 EP Interpretation: reviewed, normal General Appearance: no apparent distress, alert, GCS 15, non-toxic Head: normocephalic, atraumatic Eyes: bilateral eye normal inspection, bilateral eye PERRL ENT: hearing grossly normal, normal pharynx, no angioedema, normal voice Neck: full range of motion, supple/symm/no masses Respiratory: chest non-tender, lungs clear, normal breath sounds, speaking full sentences Cardiovascular #1: regular rate, rhythm, no edema Cardiovascular #2: 2+ carotid (R), 2+ carotid (L), 2+ radial (R), 2+ radial (L) , 2+ dorsalis pedis (R), 2+ dorsalis pedis (L) Gastrointestinal: normal bowel sounds, non tender, soft, non-distended, no guarding, no rebound Rectal: deferred Genitourinary: normal inspection, no CVA tenderness Musculoskeletal: back normal, gait/station normal, normal range of motion, non- tender Neurologic: alert, oriented x3, responsive, motor strength/tone normal, sensory intact, speech normal Psychiatric: judgement/insight normal, memory normal, mood/affect normal, no suicidal/homicidal ideation Reflexes: 3+ bicep (R), 3+ bicep (L), 3+ tricep (R), 3+ tricep (L), 3+ knee (R) , 3+ knee (L) Skin: normal color, no rash, warm/dry, well hydrated Lymphatic: no adenopathy Medical Decision Making Diagnostic Impression: Primary Impression: Sickle cell trait Additional Impression: Opioid dependence ER Course Hospital Course 31-year-old F presents ED complaining of generalized body pain, h/o sickle cell. c/o cough Differential diagnoses include: [place]/unstable angina, sickle cell crisis, sepsis, UTI, pneumonia Clinical course Patient placed on stretcher. on case monitor. She reports has very poor IV access. She has been here multiple times recently for pain medication. Always requesting IM Dilaudid. I told patient that I will agree to provide her with stronger pain medication if her labs show evidence of crisis. Patient agrees Labs drawn-no leukocytosis, hemoglobin/hematocrit stable, electrolytes okay, LDH normal I discussed findings with the patient. Patient is not in crisis. I agreed provide her with one Percocet but no Dilaudid. Patient refuses and states she' ll take her medications at home Diagnosis - sickle cell anemia, narcotic dependence Stable and discharged to home. Followup with PMD. Return to ED if symptoms recur or worsen Labs Test 03/15/17 17:00 White Blood Count 6.3 K/UL (4.8-10.8) Red Blood Count 3.86 M/UL (4.20-5.40) Hemoglobin 9.9 G/DL (12.0-16.0) Hematocrit 31.1 % (37.0-47.0) Mean Corpuscular Volume 81 FL (80-99) Mean Corpuscular Hemoglobin 25.6 PG (27.0-31.0) Mean Corpuscular Hemoglobin Concent 31.7 G/DL (32.0-36.0) Red Cell Distribution Width 13.8 % (11.6-14.8) Platelet Count 389 K/UL (150-450) Mean Platelet Volume 6.2 FL (6.5-10.1) Neutrophils (%) (Auto) 52.2 % (45.0-75.0) Lymphocytes (%) (Auto) 34.6 % (20.0-45.0) Monocytes (%) (Auto) 8.3 % (1.0-10.0) Eosinophils (%) (Auto) 3.5 % (0.0-3.0) Basophils (%) (Auto) 1.4 % (0.0-2.0) Reticulocyte Count 0.7 % (0.0-2.0) Sodium Level 140 mEQ/L (135-145) Potassium Level 3.5 mEQ/L (3.4-4.9) Chloride Level 100 mEQ/L (98-107) Carbon Dioxide Level 29 mEQ/L (20-30) Anion Gap 11 (5-15) Blood Urea Nitrogen 8 mg/dL (7-23) Creatinine 0.7 mg/dL (0.5-0.9) Estimat Glomerular Filtration Rate > 60 mL/min (>60) Glucose Level 94 mg/dL (74-106) Calcium Level 9.2 mg/dL (8.6-10.2) Total Bilirubin 0.2 mg/dL (0.0-1.2) Aspartate Amino Transf (AST/SGOT) 19 U/L (5-40) Alanine Aminotransferase (ALT/SGPT) 7 U/L (3-33) Alkaline Phosphatase 87 U/L (35-104) Lactate Dehydrogenase 163 U/L (135-230) Total Protein 7.0 g/dL (6.6-8.7) Albumin 3.7 g/dL (3.5-5.2) Globulin 3.3 g/dL Albumin/Globulin Ratio 1.1 (1.0-2.7) Chest X-Ray Diagnostic Results Chest X-Ray Diagnostic Results : Chest X-Ray Ordered: Yes # of Views/Limited/Complete: 1 View Indication: Other - cough EP Interpretation: Yes Interpretation: no consolidation, no effusion, no pneumothorax, no acute cardiopulmonary disease Impression: No acute disease Electronically Signed by: Electronically signed by Emerson Londono MD Last Vital Signs Date Time Temp Pulse Resp B/P (MAP) Pulse Ox O2 Delivery O2 Flow Rate FiO2 03/15/17 20:27 98.0 68 17 128/75 100 Room Air Status: improved Disposition: HOME, SELF-CARE Condition: Stable Referrals: [facility] (PCP) Patient Instructions: Sickle Cell Testing EMERSON LONDONO M.D. Mar 17, 2017 09:06
== END 2017-03-15 20:27 | disposition home or self-care (01) ==
LOC: EMR 20:20
DX: D57.3 Sickle-cell trait (principal); F11.20 Opioid dependence, uncomplicated; R52 Pain, unspecified; R05 Cough; Z88.5 Allergy status to narcotic agent; Z88.8 Allergy status to other drugs, medicaments and biological substances; J45.909 Unspecified asthma, uncomplicated
CPT/HCPCS: 36415; 71010; 80053; 83615; 85025; 85044; 99282

== ENCOUNTER 2017-04-17 09:16 | Emergency (ER) | payer OTHER ==
[~2017-04-17] VITALS: Ht 157.5 cm; Wt 72.6 kg
[2017-04-17 09:45] VITALS: BP 112/69
[2017-04-17] MEDS ORDERED: Morphine Sulfate 4mg/ml Inj IM ONE (10:30)
[2017-04-17] MEDS ORDERED: DiphenhydrAMINE 50mg/ml Inj IM ONE (10:30)
[2017-04-17 10:42] LABS: APPEARANCE,URINE SLIGHTLY CLOUDY; KETONES,URINE NEGATIVE (NEGATIVE); LEUKOCYTE ESTERASE ,URINE 1+ (NEGATIVE); NITRITE,URINE NEGATIVE (NEGATIVE); PH,URINE 6.5 (4.5-8.0); PROTEIN,URINE 1+ (NEGATIVE); UROBILINOGEN,URINE NORMAL MG/DL (0.0-1.0)
[2017-04-17 10:53] LABS: BACTERIA,URINE FEW /HPF; RBC,URINE 0-2 /HPF (0 - 2); SQUAMOUS EPITHELIAL CELL,UR MODERATE /LPF (NONE/OCC)
--- NOTE | 2017-04-17 11:06 | Emergency Room Report ---
History of Present Illness General Chief Complaint: Pain Source: Patient Present Illness HPI 31-year-old female history of sickle cell disease presenting with pain. Patient states that she ran out of her dilaudid. Has back pain and shoulder pain. Patient seemed to be sleeping comfortably and not in pain. Denies fever chills cough Patient has been multiple times in the past Allergies: Coded Allergies: METOCLOPRAMIDE (Verified Allergy, Mild, Rash, 07/27/12) KETOROLAC (Verified Allergy, Unknown, 11/25/13) MORPHINE (Verified Allergy, Unknown, 11/20/16) PROCHLORPERAZINE EDISYLATE (Verified Adverse Reaction, Intermediate, Shortness of Breath, 05/30/12) ANX PROCHLORPERAZINE MALEATE (Verified Adverse Reaction, Intermediate, Shortness of Breath, 05/30/12) ANX Patient History Past Medical History: see triage record Past Surgical History: none Pertinent Family History: none Last Menstrual Period: - Reviewed Nursing Documentation: PMH: Agreed, PSxH: Agreed Nursing Documentation-PMH Past Medical History: No History, Except For Hx Hypertension: No Hx Pacemaker: No Hx Asthma: Yes Hx COPD: No Hx Diabetes: No Hx Cancer: No Hx Neurological Problems: No Hx Cerebrovascular Accident: No Hx Seizures: No Review of Systems All Other Systems: negative except mentioned in HPI Physical Exam Vital Signs Date Time Temp Pulse Resp B/P (MAP) Pulse Ox O2 Delivery O2 Flow Rate FiO2 04/17/17 09:23 98.2 70 18 108/72 98 Room Air Sp02 EP Interpretation: reviewed, normal General Appearance: normal inspection, well appearing, no apparent distress, alert, GCS 15, non-toxic Head: normocephalic, atraumatic Eyes: bilateral eye normal inspection, bilateral eye PERRL, bilateral eye EOMI ENT: normal ENT inspection, normal pharynx, normal voice, moist mucus membranes Neck: normal inspection, full range of motion, supple Respiratory: normal inspection, lungs clear, normal breath sounds, no respiratory distress, no retraction, no wheezing, speaking full sentences, chest symmetrical Cardiovascular #1: normal inspection, regular rate, rhythm, no edema, normal capillary refill Cardiovascular #2: 2+ radial (R), 2+ radial (L) Gastrointestinal: normal inspection, non tender, soft, non-distended, no guarding Musculoskeletal: normal inspection, back normal, normal range of motion, non- tender Neurologic: normal inspection, alert, oriented x3, responsive, motor strength/ tone normal, sensory intact, normal gait, speech normal Psychiatric: normal inspection, judgement/insight normal, memory normal Skin: normal inspection, normal color, no rash, warm/dry, well hydrated, normal turgor Medical Decision Making Diagnostic Impression: Primary Impression: Sickle cell disease Additional Impression: Chronic pain ER Course 31-year-old female with sickle cell disease presenting with pain DDX: Chronic sickle cell pain Patient does not appear to be in pain, has been sleeping comfortably Plan: Obtain labs ER course: Patient has remained stable during ED stay. I told patient I am not going to give dilaudid in emergency room, does not appear to be in distress, was given morphine and Benadryl Attempted to get patient's labs x 2 times with nursing staff, patient angry and now refusing to obtain labs VSS, nad, pt sleeping comforably Disposition: Patient is to be discharged to home. Patient is instructed to follow up with their primary care doctor within 5 days. Strict return precautions discussed with patient such as fever, chills, worsening/severe pain, nausea, vomiting, which may indicate severe illness. Patient verbalizes understanding and agrees with plan. Please note that this Emergency Department Report was dictated using [employer] merchand[employer] director technology software, occasionally this can lead to erroneous entry secondary to interpretation by the dictation equipment Last Vital Signs Date Time Temp Pulse Resp B/P (MAP) Pulse Ox O2 Delivery O2 Flow Rate FiO2 04/17/17 09:45 62 14 112/69 100 Room Air 04/17/17 09:23 98.2 Disposition: HOME, SELF-CARE Condition: Improved Referrals: [facility] (PCP) Yulissa Jiang M.D. Apr 17, 2017 11:06
[2017-04-17 11:35] VITALS: BP 112/73
== END 2017-04-17 11:37 | disposition home or self-care (01) ==
LOC: EMR 10:05
DX: D57.00 Hb-SS disease with crisis, unspecified (principal); G89.29 Other chronic pain; J45.909 Unspecified asthma, uncomplicated
CPT/HCPCS: 81003; 81025; 96372; 99284; J1200; J2270

== ENCOUNTER 2017-05-01 11:03 | Emergency (ER) | payer OTHER ==
[~2017-05-01] VITALS: Ht 157.5 cm; Wt 53.1 kg
[2017-05-01 11:10] VITALS: BP 135/88
[2017-05-01 11:45] VITALS: BP 135/88
--- NOTE | 2017-05-02 15:11 | Emergency Room Report ---
History of Present Illness General Chief Complaint: Pain Source: Patient Present Illness HPI Patient presents with complaints of diffuse body pain Reports that she's having a flareup of her sickle cell disease Denies any vomiting or diarrhea she also reports diffuse abdominal pain Denies any fevers denies any neck pain or photophobia denies any recent fall or trauma patient reports that she is waiting for a new physician to be signs her Allergies: Coded Allergies: METOCLOPRAMIDE (Verified Allergy, Mild, Rash, 07/27/12) KETOROLAC (Verified Allergy, Unknown, 11/25/13) MORPHINE (Verified Allergy, Unknown, 11/20/16) PROCHLORPERAZINE EDISYLATE (Verified Adverse Reaction, Intermediate, Shortness of Breath, 05/30/12) ANX PROCHLORPERAZINE MALEATE (Verified Adverse Reaction, Intermediate, Shortness of Breath, 05/30/12) ANX Patient History Past Medical History: see triage record Pertinent Family History: none Last Menstrual Period: 04/11/17 Now: No Reviewed Nursing Documentation: PMH: Agreed, PSxH: Agreed Nursing Documentation-PMH Hx Hypertension: No Hx Pacemaker: No Hx Asthma: Yes Hx COPD: No Hx Diabetes: No Hx Cancer: No Hx Neurological Problems: No Hx Cerebrovascular Accident: No Hx Seizures: No Review of Systems All Other Systems: negative except mentioned in HPI Physical Exam Vital Signs Date Time Temp Pulse Resp B/P (MAP) Pulse Ox O2 Delivery O2 Flow Rate FiO2 05/01/17 11:07 98.1 81 18 117/78 100 Room Air Sp02 EP Interpretation: reviewed, normal General Appearance: well appearing, no apparent distress Head: normocephalic, atraumatic Eyes: bilateral eye PERRL, bilateral eye EOMI ENT: hearing grossly normal, normal pharynx, TMs + canals normal, uvula midline Neck: full range of motion, supple, no meningismus, no bony tend Respiratory: lungs clear, normal breath sounds, no rhonchi, no respiratory distress, no retraction, no accessory muscle use Cardiovascular #1: normal peripheral pulses, regular rate, rhythm, no edema, no gallop, no JVD, no murmur Gastrointestinal: normal bowel sounds, non tender, soft, no mass, no organomegaly, non-distended, no guarding, no hernia, no pulsatile mass, no rebound Musculoskeletal: normal inspection Neurologic: oriented x3, responsive, cargo and container inspector III-XII nml as tested, motor strength/ tone normal, sensory intact Psychiatric: mood/affect normal Skin: normal color, no rash, warm/dry, palpation normal Lymphatic: normal inspection, no adenopathy Medical Decision Making Diagnostic Impression: Primary Impression: Opioid dependence Additional Impression: Pain ER Course Patient has multiple differentials considered At this time resting comfortably in the emergency room Her medical record has been reviewed and patient has multiple visits to the ER patient's reticulocyte count in the past has always been normal Patient at this time as discussed regarding the concern of ER use for pain medication I did notify the patient that I will be medically evaluating her with blood work and reticulocyte count further eval he the situation And that initially the patient would not be receiving any Dilaudid which she requested Patient was agreeable to this however I was told, at a short time later the patient eloped from the emergency room Last Vital Signs Date Time Temp Pulse Resp B/P (MAP) Pulse Ox O2 Delivery O2 Flow Rate FiO2 05/01/17 11:45 98.1 76 16 135/88 100 Room Air Status: other Disposition: ELOPED Condition: Unknown Referrals: [facility] (PCP) YANELY SPARKS D.O. May 02, 2017 15:11
== END 2017-05-01 11:46 | disposition left against medical advice (07) ==
LOC: EMR 11:30
DX: R52 Pain, unspecified (principal); F11.20 Opioid dependence, uncomplicated; J45.909 Unspecified asthma, uncomplicated; Z88.6 Allergy status to analgesic agent; Z88.8 Allergy status to other drugs, medicaments and biological substances; D57.1 Sickle-cell disease without crisis
CPT/HCPCS: 99282

== ENCOUNTER 2017-06-16 17:08 | Emergency (ER) | payer OTHER ==
[~2017-06-16] VITALS: Ht 157.5 cm; Wt 52.2 kg
--- NOTE | 2017-06-16 17:16 | Emergency Room Report ---
History of Present Illness General Chief Complaint: To Be Triaged Source: Patient Present Illness HPI 31YOF with known SCD. States chronic low back pain Dilaudid not working at home States had "multiple transfusions" in last 2 weeks - endorses 3x transfusions Denies chest pain, SOB, palpitations, abd pain Denies fever/chills, cough Allergies: Coded Allergies: METOCLOPRAMIDE (Verified Allergy, Mild, Rash, 07/27/12) KETOROLAC (Verified Allergy, Unknown, 11/25/13) MORPHINE (Verified Allergy, Unknown, 11/20/16) PROCHLORPERAZINE EDISYLATE (Verified Adverse Reaction, Intermediate, Shortness of Breath, 05/30/12) ANX PROCHLORPERAZINE MALEATE (Verified Adverse Reaction, Intermediate, Shortness of Breath, 05/30/12) ANX Patient History Past Medical History: other - see HPI Past Surgical History: none Pertinent Family History: none Social History: Denies: smoking, alcohol use, drug use Now: No Immunizations: UTD Reviewed Nursing Documentation: PMH: Agreed, PSxH: Agreed Nursing Documentation-PMH Hx Hypertension: No Hx Pacemaker: No Hx Asthma: Yes Hx COPD: No Hx Diabetes: No Hx Cancer: No Hx Neurological Problems: No Hx Cerebrovascular Accident: No Hx Seizures: No Review of Systems All Other Systems: negative except mentioned in HPI Physical Exam Sp02 EP Interpretation: reviewed, normal General Appearance: normal inspection, well appearing, no apparent distress, alert, GCS 15, non-toxic Head: normocephalic, atraumatic Eyes: bilateral eye PERRL, bilateral eye EOMI ENT: normal ENT inspection, hearing grossly normal, normal pharynx, no angioedema, normal voice, TMs + canals normal, uvula midline, moist mucus membranes Neck: normal inspection, full range of motion, supple, thyroid normal, no meningismus, no bony tend Respiratory: normal inspection, lungs clear, normal breath sounds, no rhonchi, no respiratory distress, no retraction, no accessory muscle use, no wheezing, speaking full sentences Cardiovascular #1: regular rate, rhythm, no edema, no JVD, normal capillary refill Gastrointestinal: normal inspection, normal bowel sounds, non tender, soft, no mass, no peritonitis, non-distended, no guarding, no hernia, no pulsatile mass Genitourinary: no CVA tenderness Musculoskeletal: normal inspection, back normal, normal range of motion, no calf tenderness, pelvis stable, Hoa's Sign negative Neurologic: normal inspection, alert, oriented x3, responsive, immunohematologist III-XII nml as tested, motor strength/tone normal, cerebellar normal, normal gait, speech normal Psychiatric: normal inspection, judgement/insight normal, mood/affect normal, no suicidal/homicidal ideation, no delusions Skin: normal inspection, normal color, no rash Lymphatic: normal inspection, no adenopathy Medical Decision Making Diagnostic Impression: Primary Impression: Chronic pain Qualified Codes: G89.29 - Other chronic pain Additional Impression: Drug-seeking behavior ER Course VSS, afebrile Retic count normal going back almost 4 years H&H stable for 3 years per EMR here If patient had multiple transfusions recently, likely H&H is now stable No clinical signs of anemia on exam requesting IV dilaudid or morphine here Agrees to T#3 for pain control Advised PMD followup for better pain control at home ER course: Patient has remained stable during ED stay. Patient is to be discharged to home. Patient is instructed to follow up with their primary care doctor within 5 days. Strict return precautions discussed with patient such as fever, chills, worsening/severe pain, nausea, vomiting, which may indicate severe illness. Patient verbalizes understanding and agrees with plan. Please note that this Emergency Department Report was dictated using [employer] planner technology software, occasionally this can lead to erroneous entry secondary to interpretation by the dictation equipment Status: improved Disposition: HOME, SELF-CARE KVNG OLIVAREZ M.D. Jun 16, 2017 17:16
[2017-06-16] MEDS ORDERED: SEROQUEL200 MG ORAL (17:17)
[2017-06-16] MEDS ORDERED: Tylenol #3 tab (300mg/30mg) ORAL ONE (17:30)
[2017-06-16 17:37] VITALS: BP 126/87
== END 2017-06-16 17:37 | disposition home or self-care (01) ==
LOC: EMR 17:20
DX: G89.29 Other chronic pain (principal); M54.5 Low back pain; Z76.5 Malingerer [conscious simulation]; J45.909 Unspecified asthma, uncomplicated; D57.1 Sickle-cell disease without crisis; Z88.8 Allergy status to other drugs, medicaments and biological substances
CPT/HCPCS: 99283

== ENCOUNTER 2018-06-05 21:50 | Emergency (ER) | payer MEDICARE, OTHER ==
[~2018-06-05] VITALS: Ht 157.5 cm; Wt 54.9 kg
[~2018-06-05 21:50] MED LIST changes: +SEROQUEL200 MG ORAL
--- NOTE | 2018-06-05 22:29 | Emergency Room Report ---
History of Present Illness General Chief Complaint: Pain Source: Patient Present Illness HPI Patient 32-year-old male who presented after increased generalized body pain. Patient prior history of sickle cell disease. Patient had reportedly had recent blood drawn which she had a normal hemoglobin. Patient had prior history of chronic pain and normally takes Dilaudid as well as multiple other medications. She denies any fever. She denies any sore throat or cough. She denies any difficulty breathing. She denies feeling short of breath. She reports having generalized joint pain. Allergies: Coded Allergies: METOCLOPRAMIDE (Verified Allergy, Mild, Rash, 07/27/12) KETOROLAC (Verified Allergy, Unknown, 11/25/13) MORPHINE (Verified Allergy, Unknown, 11/20/16) PROCHLORPERAZINE EDISYLATE (Verified Adverse Reaction, Intermediate, Shortness of Breath, 05/30/12) ANX PROCHLORPERAZINE MALEATE (Verified Adverse Reaction, Intermediate, Shortness of Breath, 05/30/12) ANX Patient History Past Medical History: see triage record Last Menstrual Period: 07/03/17 Now: No Reviewed Nursing Documentation: PMH: Agreed; PSxH: Agreed Nursing Documentation-PMH Hx Hypertension: No Hx Pacemaker: No Hx Asthma: Yes Hx COPD: No Hx Diabetes: No Hx Cancer: No Hx Neurological Problems: No Hx Cerebrovascular Accident: No Hx Seizures: No Review of Systems All Other Systems: negative except mentioned in HPI Physical Exam Vital Signs Date Time Temp Pulse Resp B/P (MAP) Pulse Ox O2 Delivery O2 Flow Rate FiO2 06/05/18 21:57 98.2 77 16 112/70 100 Room Air Sp02 EP Interpretation: reviewed, normal General Appearance: normal inspection, well appearing, no apparent distress, alert, GCS 15 Head: atraumatic ENT: normal ENT inspection, hearing grossly normal, normal voice Neck: normal inspection, full range of motion, supple, no bony tend Respiratory: normal inspection, lungs clear, normal breath sounds, no respiratory distress, no retraction, no wheezing Cardiovascular #1: regular rate, rhythm, no edema Gastrointestinal: normal inspection, normal bowel sounds, non tender, soft, no guarding, no hernia Genitourinary: no CVA tenderness Musculoskeletal: normal inspection, back normal, normal range of motion Neurologic: normal inspection, alert, responsive, speech normal Psychiatric: normal inspection, judgement/insight normal, mood/affect normal Skin: normal inspection, normal color, no rash Medical Decision Making Diagnostic Impression: Primary Impression: Sickle cell pain crisis ER Course Patient presented for sickle cell pain. Differential diagnosis included but was not limited to have sickle cell pain crisis, aplastic crisis, sequestration , osteomyelitis, acute chest syndrome among others. Patient has a benign exam and does not appear to require any further imaging or laboratory testing at this time. The patient appears to have exacerbation of chronic pain. The patient was given IM pain medications. She was able to tolerate oral fluids. Patient states that she felt better and wished to leave. The patient does not appear to require laboratory testing at this time Last Vital Signs Date Time Temp Pulse Resp B/P (MAP) Pulse Ox O2 Delivery O2 Flow Rate FiO2 06/05/18 21:57 98.2 77 16 112/70 100 Room Air Status: improved Disposition: HOME, SELF-CARE Condition: Stable Dante Cardona MD Jun 05, 2018 22:29
[2018-06-05] MEDS ORDERED: Ondansetron ODT 8mg tab ORAL ONE (22:30)
[2018-06-05] MEDS ORDERED: DiphenhydrAMINE 50mg/ml Inj IM ONE (22:30)
[2018-06-05] MEDS ORDERED: Morphine Sulfate 4mg/ml Inj (IV/IM USE ONLY) IM ONE ×2 (22:30→23:45)
[2018-06-05 22:56] VITALS: BP 112/70
[2018-06-05 23:11] VITALS: BP 119/67
[2018-06-05 23:47] VITALS: BP 119/67
== END 2018-06-05 23:48 | disposition home or self-care (01) ==
LOC: EMR 22:40
DX: D57.00 Hb-SS disease with crisis, unspecified (principal); J45.909 Unspecified asthma, uncomplicated; Z88.8 Allergy status to other drugs, medicaments and biological substances
CPT/HCPCS: 81025; 96372; 99283; J1200; J2270; Q0162

== ENCOUNTER 2018-06-26 01:48 | Emergency (ER) | payer MEDICARE, OTHER ==
[~2018-06-26] VITALS: Ht 157.5 cm; Wt 59.0 kg
[2018-06-26 02:17] VITALS: BP 111/75
--- NOTE | 2018-06-26 02:29 | Emergency Room Report ---
History of Present Illness General Chief Complaint: Pain Source: Patient Present Illness HPI This a 32-year-old female with a history of sickle cell with sickle cell exacerbation. She presents with chief complaint of body pain from her sickle cell crisis. Said that she is out of her pain medication. He usually takes Dilaudid at home. She said last time she had to the hospital was over a month ago. Complaining of generalized pain. 10 out of 10. No nausea no vomiting. Typical from her previous sickle cell crisis. Onset for last couple days. Denies any other complaint. No fever chills but no nausea no vomiting. Allergies: Coded Allergies: METOCLOPRAMIDE (Verified Allergy, Mild, Rash, 07/27/12) KETOROLAC (Verified Allergy, Unknown, 11/25/13) MORPHINE (Verified Allergy, Unknown, 11/20/16) PROCHLORPERAZINE EDISYLATE (Verified Adverse Reaction, Intermediate, Shortness of Breath, 05/30/12) ANX PROCHLORPERAZINE MALEATE (Verified Adverse Reaction, Intermediate, Shortness of Breath, 05/30/12) ANX Patient History Past Medical History: see triage record, old chart reviewed Past Surgical History: none Pertinent Family History: none Social History: Denies: smoking Last Menstrual Period: 05/31/18 Now: No : 4 Para: 2 Immunizations: other Reviewed Nursing Documentation: PMH: Agreed; PSxH: Agreed Nursing Documentation-PMH Past Medical History: No History, Except For Hx Hypertension: No Hx Pacemaker: No Hx Asthma: Yes Hx COPD: No Hx Diabetes: No Hx Cancer: No Hx Neurological Problems: No Hx Cerebrovascular Accident: No Hx Seizures: No Review of Systems Eye: Denies: eye pain, blurred vision ENT: Denies: ear pain, nose congestion, throat swelling Respiratory: Denies: cough, shortness of breath Cardiovascular: Denies: chest pain, palpitations Gastrointestinal: Denies: abdominal pain, diarrhea, nausea, vomiting Musculoskeletal: Reports: back pain, joint pain, muscle pain Skin: Denies: rash Neurological: Denies: headache, numbness Endocrine: Denies: increased thirst, increased urine Hematologic/Lymphatic: Denies: easy bruising All Other Systems: negative except mentioned in HPI Physical Exam Vital Signs Date Time Temp Pulse Resp B/P (MAP) Pulse Ox O2 Delivery O2 Flow Rate FiO2 06/26/18 01:51 97.9 73 18 111/75 99 Room Air vitals normal Sp02 EP Interpretation: reviewed, normal General Appearance: well appearing, no apparent distress, alert Head: normocephalic, atraumatic Eyes: bilateral eye PERRL, bilateral eye EOMI ENT: hearing grossly normal, normal pharynx Neck: full range of motion, supple, no meningismus Respiratory: chest non-tender, lungs clear, normal breath sounds Cardiovascular #1: regular rate, rhythm, no murmur Gastrointestinal: normal bowel sounds, non tender, no mass, no organomegaly, no bruit, non-distended Musculoskeletal: back normal, gait/station normal, normal range of motion Psychiatric: mood/affect normal Skin: warm/dry Medical Decision Making Diagnostic Impression: Primary Impression: Drug-seeking behavior Additional Impressions: Sickle cell pain crisis Opioid dependence Qualified Codes: F11.20 - Opioid dependence, uncomplicated ER Course Patient presents with sickle cell pain. She said that she takes Dilaudid at home. On the [facility], there are prescription for [place] from several different places. There is no prescription for Dilaudid. She said that last time she visited any hospital was over a month ago. Her address is in [facility]. I called [facility] and spoke to the nurse in the ER. She knows the patient well. She said that patient has been it ER several time in May. Most recently June 21 and for sickle cell pain. Patient claimed that she was there for something else. She is resting comfortably in no distress. I suspect opioid dependency and drug -seeking behavior. I see no evidence of acute chest syndrome or aplastic crisis. We'll discharge home. Last Vital Signs Date Time Temp Pulse Resp B/P (MAP) Pulse Ox O2 Delivery O2 Flow Rate FiO2 06/26/18 02:17 97.9 72 18 111/75 99 Room Air Status: improved Disposition: HOME, SELF-CARE Condition: Stable Referrals: NON PHYSICIAN (PCP) Additional Instructions: Follow-up with your doctor in 7 days. Stop wanted different hospitals for pain medication. Return if symptom worsen. Silas Garcia MD Jun 26, 2018 02:29
[2018-06-26] MEDS ORDERED: Acetaminophen 500mg (ES) tab ORAL ONE (02:30)
[2018-06-26 02:40] VITALS: BP 108/76
== END 2018-06-26 02:42 | disposition home or self-care (01) ==
LOC: EMR 02:23
DX: D57.00 Hb-SS disease with crisis, unspecified (principal); Z76.5 Malingerer [conscious simulation]; F11.20 Opioid dependence, uncomplicated; J45.909 Unspecified asthma, uncomplicated; Z88.5 Allergy status to narcotic agent; Z88.8 Allergy status to other drugs, medicaments and biological substances
CPT/HCPCS: 99282

== ENCOUNTER 2018-10-28 12:05 | Emergency (ER) | payer MEDICARE, OTHER ==
[~2018-10-28] VITALS: Ht 157.5 cm; Wt 59.0 kg
[2018-10-28 12:20] VITALS: BP 128/77
--- NOTE | 2018-10-28 12:30 | NUR ---
ED Nurse Note: Pt walked in due to generalized body pain Hx of sickle cell crisis. VSS. No respiratory distress. Pt is AAO x4, ambulatory and speaks in full sentences.
[2018-10-28] MEDS ORDERED: HYDROmorphone 2 MG in NS 55 ML IVPB ONE (13:00)
--- NOTE | 2018-10-28 13:00 | NUR ---
ED Nurse Note: NICOLE Argueta ordered IM shot of dilaudid 2mg and IM zofran 2mg instead.
--- NOTE | 2018-10-28 13:13 | Emergency Room Report ---
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 Gomez was at her OB/ ORDER DESK CALLER 2 days ago and did blood counts reporting that her latest hemoglobin was 8 as well as her reticulocyte count being within the normal range compared to her previous lab results reports that she is currently on her hydroxyurea and daily basis as well as Dilaudid 4 mg p.o. twice a day however she complains of increased nausea and pain. LMP was 2 weeks ago patient denies being . No chest pain, S OB, palpitation, dizziness and headache. Has an appointment with her milling/polishing operator in 2 weeks. Asking for a small dose of injection of Dilaudid. Allergies: Coded Allergies: METOCLOPRAMIDE (Verified Allergy, Mild, Rash, 07/27/12) KETOROLAC (Verified Allergy, Unknown, 11/25/13) MORPHINE (Verified Allergy, Unknown, 11/20/16) PROCHLORPERAZINE EDISYLATE (Verified Adverse Reaction, Intermediate, Shortness of Breath, 05/30/12) ANX PROCHLORPERAZINE MALEATE (Verified Adverse Reaction, Intermediate, Shortness of Breath, 05/30/12) ANX Patient History Past Medical History: see triage record Past Surgical History: unable to obtain Pertinent Family History: none Last Menstrual Period: 10/23/18 Now: No : 3 Para: 3 Immunizations: UTD Reviewed Nursing Documentation: PMH: Agreed; PSxH: Agreed Nursing Documentation-PMH Hx Hypertension: No Hx Pacemaker: No Hx Asthma: Yes Hx COPD: No Hx Diabetes: No Hx Cancer: No Hx Neurological Problems: No Hx Cerebrovascular Accident: No Hx Seizures: No Review of Systems All Other Systems: negative except mentioned in HPI Physical Exam Vital Signs Date Time Temp Pulse Resp B/P (MAP) Pulse Ox O2 Delivery O2 Flow Rate FiO2 10/28/18 12:20 98.2 72 18 98 Room Air Sp02 EP Interpretation: reviewed, normal General Appearance: normal inspection, well appearing, no apparent distress, alert Head: normocephalic, atraumatic Eyes: bilateral eye normal inspection, bilateral eye PERRL ENT: normal ENT inspection, hearing grossly normal, normal pharynx Neck: normal inspection, full range of motion, supple, thyroid normal Respiratory: normal inspection, chest non-tender, lungs clear, normal breath sounds, no rhonchi Cardiovascular #1: normal inspection, regular rate, rhythm, no murmur, normal capillary refill Gastrointestinal: normal inspection, non tender, soft Rectal: deferred Genitourinary: no CVA tenderness Musculoskeletal: normal inspection, back normal, digits/nails normal Neurologic: normal inspection, alert, oriented x3 Psychiatric: normal inspection, judgement/insight normal Skin: normal inspection, normal color, no rash, warm/dry Lymphatic: normal inspection, no adenopathy Medical Decision Making PA Attestation All my diagnosis and treatment plans were reviewed ad discussed with my supervising physician Dr. 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 Gomez was at her OB/ ORDER DESK CALLER 2 days ago and did blood counts reporting that her latest hemoglobin was 8 as well as her reticulocyte count being within the normal range compared to her previous lab results reports that she is currently on her hydroxyurea and daily basis as well as Dilaudid 4 mg p.o. twice a day however she complains of increased nausea and pain. LMP was 2 weeks ago patient denies being . No chest pain, S OB, palpitation, dizziness and headache. Has an appointment with her milling/polishing operator in 2 weeks. Asking for a small dose of injection of Dilaudid. Ddx considered but are not limited to:sickle cell crisis, drug seeking behavior , sickle cell anemia Vital signs: are WNL, pt. is afebrile H&PE are most consistent with: sickle cell pain ORDERS: diludid 4 mg and zofran 4, zofran 8 po ED INTERVENTIONS: diludid 4 and zofran 4 DISCHARGE: At this time pt. is stable for d/c to home. Will provide printed patient care instructions, and any necessary prescriptions. Care plan and follow up instructions have been discussed with the patient prior to discharge. With milling/polishing operator no need for reticulocyte count and hemoglobin up today with your blood work CURES was done unremarkable Last Vital Signs Date Time Temp Pulse Resp B/P (MAP) Pulse Ox O2 Delivery O2 Flow Rate FiO2 10/28/18 12:20 98.2 72 18 98 Room Air Disposition: HOME, SELF-CARE Condition: Stable Scripts Ondansetron Odt* (ZOFRAN ODT*) 8 Mg Tab.rapdis 8 MG ORAL Q8 PRN for Nausea & Vomiting, #30 TAB Prov: Ellie Armando 10/28/18 Patient Instructions: Sickle Cell Anemia, Adult, [id number] Ellie Armando October 28, 2018 13:13
[2018-10-28] MEDS ORDERED: ZOFRAN ODT8 MG ORAL (13:14)
[2018-10-28 13:17] VITALS: BP 135/70
--- NOTE | 2018-10-28 13:17 | NUR ---
ER DISCHARGE NOTE: Patient is cleared to be discharged per PA, pt is aox4, on room air, with stable vital signs. pt was given dc and prescription instructions, pt was able to verbalize understanding, pt id band removed. pt is able to ambulate with steady gait. pt took all belongings.
== END 2018-10-28 13:17 | disposition home or self-care (01) ==
LOC: EMR 12:50
DX: D57.00 Hb-SS disease with crisis, unspecified (principal); R11.0 Nausea; Z88.6 Allergy status to analgesic agent; Z88.8 Allergy status to other drugs, medicaments and biological substances
CPT/HCPCS: 96374; 96375; 99284; J1170; J2405

== ENCOUNTER 2018-11-12 22:34 | Emergency (ER) | payer MEDICARE, OTHER ==
[~2018-11-12] VITALS: Ht 157.5 cm; Wt 59.0 kg
[~2018-11-12 22:34] MED LIST changes: +ZOFRAN ODT8 MG ORAL
[2018-11-12 23:00] VITALS: BP 114/77
--- NOTE | 2018-11-12 23:00 | NUR ---
ED Nurse Note: PT CAME TO ED C/O OF SICKLE CELL PAIN. AO4. NAD. VSS
[2018-11-12 23:15] VITALS: BP 114/77
--- NOTE | 2018-11-12 23:15 | NUR ---
ER DISCHARGE NOTE: Patient is cleared to be discharged per ERMD, pt is aox4, on room air, with stable vital signs. pt was given dc and prescription instructions, pt was able to verbalize understanding; left without signing paper work; pt id band removed. pt is able to ambulate with steady gait. pt took all belongings.
--- NOTE | 2018-11-12 23:19 | Emergency Room Report ---
History of Present Illness General Chief Complaint: Pain Source: Patient Present Illness HPI This is a 33-year-old female well-known to me. She presents with chief complaint of body pain from sickle cell. Pain is 10 out of 10. This is a chronic problem. Nothing made it better. Nothing made it worse. Out of her pain medication. No nausea no vomiting. No fever chills. Allergies: Coded Allergies: METOCLOPRAMIDE (Verified Allergy, Mild, Rash, 07/27/12) KETOROLAC (Verified Allergy, Unknown, 11/25/13) MORPHINE (Verified Allergy, Unknown, 11/20/16) PROCHLORPERAZINE EDISYLATE (Verified Adverse Reaction, Intermediate, Shortness of Breath, 05/30/12) ANX PROCHLORPERAZINE MALEATE (Verified Adverse Reaction, Intermediate, Shortness of Breath, 05/30/12) ANX Patient History Past Medical History: see triage record, old chart reviewed Past Surgical History: other Pertinent Family History: none Social History: Denies: smoking Last Menstrual Period: 10/26/18 Now: No Immunizations: other Reviewed Nursing Documentation: PMH: Agreed; PSxH: Agreed Nursing Documentation-PMH Past Medical History: No History, Except For Hx Hypertension: No Hx Pacemaker: No Hx Asthma: Yes Hx COPD: No Hx Diabetes: No Hx Cancer: No Hx Neurological Problems: No Hx Cerebrovascular Accident: No Hx Seizures: No Review of Systems Eye: Denies: eye pain, blurred vision ENT: Denies: ear pain, nose congestion, throat swelling Respiratory: Denies: cough, shortness of breath Cardiovascular: Denies: chest pain, palpitations Gastrointestinal: Denies: abdominal pain, diarrhea, nausea, vomiting Musculoskeletal: Denies: back pain, joint pain Skin: Denies: rash Neurological: Denies: headache, numbness Endocrine: Denies: increased thirst, increased urine Hematologic/Lymphatic: Denies: easy bruising All Other Systems: negative except mentioned in HPI Physical Exam Vital Signs Date Time Temp Pulse Resp B/P (MAP) Pulse Ox O2 Delivery O2 Flow Rate FiO2 11/12/18 22:36 98.1 73 15 99 Room Air vitals unremarkable Sp02 EP Interpretation: reviewed, normal General Appearance: well appearing, no apparent distress, alert Head: normocephalic, atraumatic Eyes: bilateral eye PERRL, bilateral eye EOMI ENT: hearing grossly normal, normal pharynx Neck: full range of motion, supple, no meningismus Respiratory: chest non-tender, lungs clear, normal breath sounds Cardiovascular #1: regular rate, rhythm, no murmur Gastrointestinal: normal bowel sounds, non tender, no mass, no organomegaly, no bruit, non-distended Musculoskeletal: back normal, gait/station normal, normal range of motion Psychiatric: mood/affect normal Skin: warm/dry Medical Decision Making Diagnostic Impression: Primary Impression: Sickle cell disease with crisis Additional Impressions: Drug-seeking behavior Chronic pain Qualified Codes: G89.4 - Chronic pain syndrome ER Course Patient with exacerbation of chronic pain. Could be from a sickle cell. She looks very comfortable. Walking around laughing and talking on the phone without any problem. I told patient that I will hold off on any medication until we get blood work and urine. On the cures monitor she has multiple prescriptions from different doctors. Because patient was not getting pain, she got up and left. Last Vital Signs Date Time Temp Pulse Resp B/P (MAP) Pulse Ox O2 Delivery O2 Flow Rate FiO2 11/12/18 22:36 98.1 73 15 99 Room Air Status: unchanged Disposition: HOME, SELF-CARE Condition: Stable Referrals: NON PHYSICIAN (PCP) Silas Garcia MD November 12, 2018 23:19
== END 2018-11-12 23:15 | disposition home or self-care (01) ==
LOC: EMR 22:51
DX: D57.00 Hb-SS disease with crisis, unspecified (principal); Z76.5 Malingerer [conscious simulation]; G89.4 Chronic pain syndrome; Z88.6 Allergy status to analgesic agent; Z88.8 Allergy status to other drugs, medicaments and biological substances
CPT/HCPCS: 99281

== ENCOUNTER 2018-12-01 00:08 | Emergency (ER) | payer MEDICARE, OTHER ==
[~2018-12-01] VITALS: Ht 157.5 cm; Wt 59.0 kg
--- NOTE | 2018-12-01 00:40 | NUR ---
ED Nurse Note: PT AMBULATED TO ED C/O SICKLE CELL PAIN X3 DAYS. AO4. NAD. VSS.
[2018-12-01 00:51] VITALS: BP 127/71
[2018-12-01] MEDS ORDERED: Morphine Sulfate 2mg/ml Inj(IV/IM USE ONLY) IM ONE (01:00)
[2018-12-01] MEDS ORDERED: DiphenhydrAMINE 50mg/ml Inj IM ONE (01:30)
[2018-12-01 01:50] VITALS: BP 127/71
--- NOTE | 2018-12-01 01:50 | NUR ---
ER DISCHARGE NOTE: Patient is cleared to be discharged per ERMD, pt is aox4, on room air, with stable vital signs. pt was given dc and prescription instructions, pt was able to verbalize understanding, pt id bandremoved. pt is able to ambulate with steady gait. pt took all belongings.
--- NOTE | 2018-12-01 07:23 | Emergency Room Report ---
History of Present Illness General Chief Complaint: Pain Present Illness Allergies: Coded Allergies: METOCLOPRAMIDE (Verified Allergy, Mild, Rash, 07/27/12) KETOROLAC (Verified Allergy, Unknown, 11/25/13) MORPHINE (Verified Allergy, Unknown, 11/20/16) PROCHLORPERAZINE EDISYLATE (Verified Adverse Reaction, Intermediate, Shortness of Breath, 05/30/12) ANX PROCHLORPERAZINE MALEATE (Verified Adverse Reaction, Intermediate, Shortness of Breath, 05/30/12) ANX Patient History Last Menstrual Period: Nov 22 2018 Now: No Nursing Documentation-PMH Hx Hypertension: No Hx Pacemaker: No Hx Asthma: Yes Hx COPD: No Hx Diabetes: No Hx Cancer: No Hx Neurological Problems: No Hx Cerebrovascular Accident: No Hx Seizures: No Physical Exam Vital Signs Date Time Temp Pulse Resp B/P (MAP) Pulse Ox O2 Delivery O2 Flow Rate FiO2 12/01/18 00:35 98.2 84 18 127/71 (89) 98 Room Air Medical Decision Making Diagnostic Impression: Primary Impression: Foreign body in ear Additional Impression: Chronic pain Last Vital Signs Date Time Temp Pulse Resp B/P (MAP) Pulse Ox O2 Delivery O2 Flow Rate FiO2 12/01/18 01:50 98.2 84 18 127/71 98 Room Air Disposition: HOME, SELF-CARE Condition: Stable Referrals: NON PHYSICIAN (PCP) Ana Baker Comp. [facility] Patient Instructions: Sickle Cell Anemia, Adult, [id number] Emerson Londono MD Dec 01, 2018 07:23
== END 2018-12-01 01:50 | disposition home or self-care (01) ==
LOC: EMR 01:13
DX: T16.9XXA Foreign body in ear, unspecified ear, initial encounter (principal); X58.XXXA Exposure to other specified factors, initial encounter; Y92.9 Unspecified place or not applicable; G89.29 Other chronic pain; Z88.8 Allergy status to other drugs, medicaments and biological substances; Z88.6 Allergy status to analgesic agent
CPT/HCPCS: 96372; 99283; J1200; J2270; J2405

== ENCOUNTER → 2019-02-14 | Emergency (ER) | payer MEDICARE, OTHER ==
[~2019-02-14] VITALS: Ht 157.5 cm; Wt 59.0 kg
[2019-02-14 11:53] VITALS: BP 123/83
--- NOTE | 2019-02-14 12:15 | NUR ---
ED Nurse Note: Patient presents to ER due to left side pain, diarrhea. Patient awake, alert, oriented x 4. Regular, unlabored breathing noted. No N/V or D noted. No diaphoresis noted. Patient laying in bed using cell phone without facial grimacing or guarding.
--- NOTE | 2019-02-14 12:25 | NUR ---
ED Nurse Note: Patient is asking for pain medication. Gayle Argueta was notified. Patient refused acetaminophen and asking for other pain medication. Ellie Araujo informed this RN that No Morphine or Dilaudid can be given at this time. Patient stated that she wants to leave the hospital to go her doctor for pain medication. Patient refused blood test, Pepcid and Zofran. RN informed patient to wait for P.A. in room.
--- NOTE | 2019-02-14 12:27 | NUR ---
ED Nurse Note: Patient not found in room. Patient eloped.
--- NOTE | 2019-02-14 21:34 | Emergency Room Report ---
History of Present Illness General Chief Complaint: Abdominal Pain Source: Medical Record Present Illness HPI 33-year-old female with history of sickle cell disease here complaining of 3 days of left lower quadrant abdominal pain and multiple bouts of nonbloody emesis and nonbloody diarrhea. Patient denies fever and chills, alcohol intake , drug use, smoking, or recent consumption of different food. 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 Patient reports that she takes Dilaudid and hydrocodone at home. Rating the pain 10 out of 10 requesting Dilaudid as if she is allergic to morphine and few other drug allergies. Patient also reports that she is a hard stick and does not want any blood drawn or any IV fluids. Denies any urinary symptoms today and regular with her menstruation. Patient had minimal guarding in left lower quadrant. However she is a little before any CT scan or blood work was done or any medication was administered as she realized that she was not going to get Dilaudid. Patient in no distress at time of discharge Allergies: Coded Allergies: METOCLOPRAMIDE (Verified Allergy, Mild, Rash, 07/27/12) KETOROLAC (Verified Allergy, Unknown, 11/25/13) MORPHINE (Verified Allergy, Unknown, 11/20/16) PROCHLORPERAZINE EDISYLATE (Verified Adverse Reaction, Intermediate, Shortness of Breath, 05/30/12) ANX PROCHLORPERAZINE MALEATE (Verified Adverse Reaction, Intermediate, Shortness of Breath, 05/30/12) ANX Patient History Past Medical History: see triage record Past Surgical History: unable to obtain Pertinent Family History: none Last Menstrual Period: 02/04/19 Now: No Immunizations: UTD Reviewed Nursing Documentation: PMH: Agreed; PSxH: Agreed Nursing Documentation-PMH Past Medical History: No History, Except For Hx Hypertension: No Hx Pacemaker: No Hx Asthma: Yes Hx COPD: No Hx Diabetes: No Hx Cancer: No Hx Neurological Problems: No Hx Cerebrovascular Accident: No Hx Seizures: No Review of Systems All Other Systems: negative except mentioned in HPI Physical Exam Vital Signs Date Time Temp Pulse Resp B/P (MAP) Pulse Ox O2 Delivery O2 Flow Rate FiO2 02/14/19 11:53 98.6 16 123/83 100 Room Air 02/14/19 11:53 81 Sp02 EP Interpretation: reviewed, normal General Appearance: no apparent distress, alert, GCS 15, non-toxic Head: normocephalic, atraumatic Eyes: bilateral eye normal inspection, bilateral eye PERRL ENT: hearing grossly normal, normal pharynx, no angioedema, normal voice Neck: full range of motion, supple/symm/no masses Respiratory: chest non-tender, lungs clear, normal breath sounds, no wheezing, speaking full sentences Cardiovascular #1: normal inspection, regular rate, rhythm, no edema, no murmur , normal capillary refill Gastrointestinal: non tender, soft, no mass, no organomegaly, no bruit, no hernia, no pulsatile mass, guarding - Left lower quadrant, other - Negative Campos's, McBurney's, Rovsing's Genitourinary: no CVA tenderness Musculoskeletal: back normal, gait/station normal, normal range of motion, non- tender, calf tenderness Neurologic: alert, oriented x3, responsive, motor strength/tone normal, sensory intact, speech normal Psychiatric: judgement/insight normal, memory normal, mood/affect normal, no suicidal/homicidal ideation Skin: no rash Lymphatic: no adenopathy Medical Decision Making PA Attestation All my diagnosis and treatment plans were reviewed ad discussed with my supervising physician Dr. Cerda Diagnostic Impression: Primary Impression: ELOPED ER Course 33-year-old female with history of sickle cell disease here complaining of 3 days of left lower quadrant abdominal pain and multiple bouts of nonbloody emesis and nonbloody diarrhea. Patient denies fever and chills, alcohol intake , drug use, smoking, or recent consumption of different food. 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 Patient reports that she takes Dilaudid and hydrocodone at home. Rating the pain 10 out of 10 requesting Dilaudid as if she is allergic to morphine and few other drug allergies. Patient also reports that she is a hard stick and does not want any blood drawn or any IV fluids. Denies any urinary symptoms today and regular with her menstruation. Patient had minimal guarding in left lower quadrant. However she is a little before any CT scan or blood work was done or any medication was administered as she realized that she was not going to get Dilaudid. Patient in no distress at time of discharge Ddx considered but are not limited to: appendicitis, cholecystis, gastritis, gastroenteritis, UTI, pyelonephritis, SBO, diverticulitis, influenza with GI manifestation, [place], complication with , sickle cell crisis, diverticulitis, diverticulosis Vital signs: are WNL, pt. is afebrile H&PE are most consistent with: Unknown status of sickle cell disease as patient does not allow us to do blood work and eloped prior to any medication administration blood work and imaging. ORDERS: abdominal CT, abdominal pain set, all canceled due to patient eloping ED INTERVENTIONS: None required at this time. DISCHARGE: Patient eloped before the administration of any medication blood work. Patient was stable at time of discharge. Cures was done on patient and patient had a different prescription of hydrocodone and Tylenol with codeine from different providers and never pain management her slate splitting supervisor Last Vital Signs Date Time Temp Pulse Resp B/P (MAP) Pulse Ox O2 Delivery O2 Flow Rate FiO2 02/14/19 12:25 18 Room Air 02/14/19 11:53 98.6 81 123/83 (96) 100 Disposition: ELOPED Condition: Unknown Referrals: NON PHYSICIAN (PCP) Ellie Armando Feb 14, 2019 21:34
== END | disposition left against medical advice (07) ==
LOC: EMR 13:25
DX: R10.32 Left lower quadrant pain (principal); D57.1 Sickle-cell disease without crisis; J45.909 Unspecified asthma, uncomplicated; Z88.8 Allergy status to other drugs, medicaments and biological substances; Z88.6 Allergy status to analgesic agent
CPT/HCPCS: 99282; J2405

== ENCOUNTER 2019-03-02 10:39 | Emergency (ER) | payer MEDICARE, OTHER ==
[~2019-03-02] VITALS: Ht 157.5 cm; Wt 59.0 kg
[2019-03-02] MEDS ORDERED: TRAZODONE HCL50 MG ORAL (10:55)
[2019-03-02 11:23] VITALS: BP 121/86
--- NOTE | 2019-03-02 11:24 | NUR ---
ED Nurse Note: Pt came in from home due to sickle cell anemia pain, whole body, aching 8/10 maurilio. Pt suspcted a "flare-up" today. Vital signs stable at this time. SAT 95%. Will cont to monitor.
--- NOTE | 2019-03-02 11:24 | Emergency Room Report ---
History of Present Illness General Chief Complaint: Pain Source: Patient Present Illness HPI Patient presents with complaints of bilateral shoulder pain trapezius pain Diffuse muscle pain Reports that she feels that her sickle cell is flaring up Denies any chest pain or shortness of breath denies any vomiting or diarrhea denies any sore throat denies any photophobia patient reports pain is 10 out of 10 and diffuse Allergies: Coded Allergies: METOCLOPRAMIDE (Verified Allergy, Mild, Rash, 07/27/12) KETOROLAC (Verified Allergy, Unknown, 11/25/13) MORPHINE (Verified Allergy, Unknown, 11/20/16) PROCHLORPERAZINE EDISYLATE (Verified Adverse Reaction, Intermediate, Shortness of Breath, 05/30/12) ANX PROCHLORPERAZINE MALEATE (Verified Adverse Reaction, Intermediate, Shortness of Breath, 05/30/12) ANX Patient History Past Medical History: see triage record Last Menstrual Period: 02/09/2019 Now: No Reviewed Nursing Documentation: PMH: Agreed; PSxH: Agreed Nursing Documentation-PMH Past Medical History: No History, Except For Hx Hypertension: No Hx Pacemaker: No Hx Asthma: Yes Hx COPD: No Hx Diabetes: No Hx Cancer: No Hx Gastrointestinal Problems: Yes - KIDNEY STONE, appendectomy Hx Dialysis: No History Of Psychiatric Problem: Yes - depression, PTSD, anxiety Hx Neurological Problems: No Hx Cerebrovascular Accident: No Hx Seizures: No Review of Systems All Other Systems: negative except mentioned in HPI Physical Exam Vital Signs Date Time Temp Pulse Resp B/P (MAP) Pulse Ox O2 Delivery O2 Flow Rate FiO2 03/02/19 10:50 98.4 78 16 118/84 (95) 100 Room Air Sp02 EP Interpretation: reviewed, normal General Appearance: well appearing, no apparent distress Head: normocephalic, atraumatic Eyes: bilateral eye PERRL, bilateral eye EOMI ENT: hearing grossly normal, normal pharynx, TMs + canals normal, uvula midline Neck: full range of motion, supple, no meningismus, no bony tend Respiratory: lungs clear, normal breath sounds, no rhonchi, no respiratory distress, no retraction, no accessory muscle use Cardiovascular #1: normal peripheral pulses, regular rate, rhythm, no edema, no gallop, no JVD, no murmur Gastrointestinal: normal bowel sounds, non tender, soft, no mass, no organomegaly, non-distended, no guarding, no hernia, no pulsatile mass, no rebound Genitourinary: no CVA tenderness Musculoskeletal: normal inspection Neurologic: oriented x3, responsive, tire shop mechanic III-XII nml as tested, motor strength/ tone normal, sensory intact Psychiatric: mood/affect normal Skin: no rash Lymphatic: normal inspection, no adenopathy Medical Decision Making Labs Test 03/02/19 11:25 White Blood Count 3.0 K/UL (4.8-10.8) Red Blood Count 4.13 M/UL (4.20-5.40) Hemoglobin 10.9 G/DL (12.0-16.0) Hematocrit 35.1 % (37.0-47.0) Mean Corpuscular Volume 85 FL (80-99) Mean Corpuscular Hemoglobin 26.4 PG (27.0-31.0) Mean Corpuscular Hemoglobin Concent 31.0 G/DL (32.0-36.0) Red Cell Distribution Width 16.6 % (11.6-14.8) Platelet Count 266 K/UL (150-450) Mean Platelet Volume 6.5 FL (6.5-10.1) Neutrophils (%) (Auto) % (45.0-75.0) Lymphocytes (%) (Auto) % (20.0-45.0) Monocytes (%) (Auto) % (1.0-10.0) Eosinophils (%) (Auto) % (0.0-3.0) Basophils (%) (Auto) % (0.0-2.0) Differential Total Cells Counted 100 Neutrophils % (Manual) 45 % (45-75) Lymphocytes % (Manual) 49 % (20-45) Monocytes % (Manual) 4 % (1-10) Eosinophils % (Manual) 1 % (0-3) Basophils % (Manual) 1 % (0-2) Band Neutrophils 0 % (0-8) Platelet Estimate Adequate Platelet Morphology Normal Hypochromasia 1+ Anisocytosis 1+ Reticulocyte Count 0.2 % (0.5-2.0) Sodium Level 143 MMOL/L (136-145) Potassium Level 3.7 MMOL/L (3.5-5.1) Chloride Level 106 MMOL/L (98-107) Carbon Dioxide Level 28 MMOL/L (21-32) Anion Gap 10 mmol/L (5-15) Blood Urea Nitrogen 8 mg/dL (7-18) Creatinine 0.7 MG/DL (0.55-1.30) Estimat Glomerular Filtration Rate > 60 mL/min (>60) Glucose Level 92 MG/DL (74-106) Calcium Level 9.2 MG/DL (8.5-10.1) Last Vital Signs Date Time Temp Pulse Resp B/P (MAP) Pulse Ox O2 Delivery O2 Flow Rate FiO2 03/02/19 10:50 98.4 78 16 118/84 (95) 100 Room Air Referrals: NOT CHOSEN IPA/,REFERRING (PCP) Alirio Rahman DO Mar 02, 2019 11:24
--- NOTE | 2019-03-02 11:33 | NUR ---
ED Nurse Note: Blood drawn and sent to lab. Pt cannot produce urine at this time, stated she will try again.
[2019-03-02 11:40] LABS: HEMATOCRIT 35.1 % (37.0-47.0); HEMOGLOBIN 10.9 G/DL (12.0-16.0); MEAN CORPUSCULAR VOLUME 85 FL (80-99); PLATELET COUNT 266 K/UL (150-450); RED BLOOD COUNT 4.13 M/UL (4.20-5.40); RED CELL DISTRIBUTION WIDTH 16.6 % (11.6-14.8)
[2019-03-02 11:44] LABS: ANION GAP 10 mmol/L (5-15); BLOOD UREA NITROGEN 8 mg/dL (7-18); CALCIUM 9.2 MG/DL (8.5-10.1); CARBON DIOXIDE 28 MMOL/L (21-32); CHLORIDE 106 MMOL/L (98-107); CREATININE 0.7 MG/DL (0.55-1.30); POTASSIUM 3.7 MMOL/L (3.5-5.1); SODIUM 143 MMOL/L (136-145)
[2019-03-02 12:51] VITALS: BP 121/86
--- NOTE | 2019-03-02 12:51 | NUR ---
ED Nurse Note: Per relieved nurse, Pt has to go outside to "put money in the meter", was educated that she needs to come back to the ER. Pt has not returned. Pt is able to ambulate with steady gait. Vital signs monitored were stable. No signs of acute distress.
== END 2019-03-02 12:51 | disposition left against medical advice (07) ==
LOC: EMR 11:22
DX: M25.512 Pain in left shoulder (principal); M25.511 Pain in right shoulder; D57.1 Sickle-cell disease without crisis; Z88.8 Allergy status to other drugs, medicaments and biological substances; Z88.6 Allergy status to analgesic agent; J45.909 Unspecified asthma, uncomplicated; Z90.49 Acquired absence of other specified parts of digestive tract; Z87.442 Personal history of urinary calculi; F32.9 Major depressive disorder, single episode, unspecified; F41.9 Anxiety disorder, unspecified; F43.10 Post-traumatic stress disorder, unspecified
CPT/HCPCS: 36415; 80048; 85007; 85025; 85044; 99284

== ENCOUNTER 2019-10-20 19:18 | Emergency (ER) | payer MEDICARE, OTHER ==
[~2019-10-20] VITALS: Ht 157.5 cm; Wt 59.9 kg
[~2019-10-20 19:18] MED LIST changes: +TRAZODONE HCL50 MG ORAL
[2019-10-20 19:43] VITALS: BP 110/73
--- NOTE | 2019-10-20 19:43 | NUR ---
ED Nurse Note: pt ambulated into ed from home CO pain d/t sickle cell crisis exacerbation. Pt states previous hx of sickle cell disease. Pt CO n/v, body ache but denies fever or exposure to others with any type of flu like symptoms. Pt aao x 4. VSS no ss of distress noted. Awaiting ERMD at bedside.
[2019-10-20] MEDS ORDERED: HYDREA500 MG PO (19:53)
[2019-10-20] MEDS ORDERED: DiphenhydrAMINE 50mg/ml Inj IM ONE (20:00)
[2019-10-20] MEDS ORDERED: Morphine Sulfate 2mg/ml Inj(IV/IM USE ONLY) IM ONE (20:00)
--- NOTE | 2019-10-20 20:00 | NUR ---
ED Nurse Note: ERMD at bedside
--- NOTE | 2019-10-20 20:05 | NUR ---
ED Nurse Note: All medications administered. Pt tolerated well. no ss of distress noted. will continue to monitor.
[2019-10-20 20:38] VITALS: BP 110/73
--- NOTE | 2019-10-20 20:39 | NUR ---
ER DISCHARGE NOTE: Patient cleared for discharge and verbalized understanding of discharge instructions, is ambulatory with a cane and departed with all belongings.
--- NOTE | 2019-10-21 23:50 | Emergency Room Report ---
History of Present Illness General Chief Complaint: Pain Source: Patient Present Illness HPI Patient is a 34-year-old female presents for increased generalized body pain. Patient had prior history of sickle cell disease. Denies any recent fever. Denies any chest discomfort. She had not been short of breath. Reports having multiple similar episodes in the past. Patient had reportedly run low on her hydroxyurea as well as pain medications. She denies any diarrhea. She had taken pain medications prior to arrival.Denies any other current complaints. Allergies: Coded Allergies: METOCLOPRAMIDE (Verified Allergy, Mild, Rash, 07/27/12) KETOROLAC (Verified Allergy, Unknown, 11/25/13) PROCHLORPERAZINE EDISYLATE (Verified Adverse Reaction, Intermediate, Shortness of Breath, 05/30/12) ANX PROCHLORPERAZINE MALEATE (Verified Adverse Reaction, Intermediate, Shortness of Breath, 05/30/12) ANX COVID-19 Screening Contact w/high risk pt: No Recent Travel to affected area: No Experienced COVID-19 symptoms?: No Patient History Past Medical History: see triage record Last Menstrual Period: 10/11/19 Now: No Reviewed Nursing Documentation: PMH: Agreed; PSxH: Agreed Nursing Documentation-PMH Hx Hypertension: No Hx Pacemaker: No Hx Asthma: Yes Hx COPD: No Hx Diabetes: No Hx Cancer: No Hx Gastrointestinal Problems: Yes - KIDNEY STONE, appendectomy Hx Dialysis: No Hx Neurological Problems: No Hx Cerebrovascular Accident: No Hx Seizures: No Review of Systems All Other Systems: negative except mentioned in HPI Physical Exam Vital Signs Date Time Temp Pulse Resp B/P (MAP) Pulse Ox O2 Delivery O2 Flow Rate FiO2 10/20/19 19:33 99.0 96 18 111/78 (89) 97 Room Air Sp02 EP Interpretation: reviewed, normal General Appearance: normal inspection, no apparent distress, alert, GCS 15, Chronically Ill Head: atraumatic ENT: normal ENT inspection, hearing grossly normal, normal voice Neck: normal inspection, full range of motion, supple, no bony tend Respiratory: normal inspection, lungs clear, normal breath sounds, no respiratory distress, no retraction, no wheezing Cardiovascular #1: regular rate, rhythm, no edema Gastrointestinal: normal inspection, normal bowel sounds, non tender, soft, no guarding, no hernia Genitourinary: no CVA tenderness Musculoskeletal: normal inspection, back normal, normal range of motion Neurologic: alert, motor strength/tone normal, display designer III-XII nml as tested, oriented x3, responsive, speech normal, normal inspection Psychiatric: normal inspection, judgement/insight normal, mood/affect normal Medical Decision Making Diagnostic Impression: Primary Impression: chronic pain Additional Impression: Sickle cell anemia ER Course Patient is a 34-year-old female who presents for increased generalized pain. Differential diagnosis include was not limited to sickle cell pain crisis, opiate withdrawal, anemia among others. Patient has a benign exam and does not appear to require any imaging or laboratory testing at this time. Patient is well-known to me and has multiple previous ER visits for similar symptoms. Patient is given pain medications in the emergency department. She was given refills for hydroxyurea. She was advised to follow-up with her market editor or primary care physician for refills of her pain medications. As she is advised to return if worse. The patient is advised to follow up with primary care doctor in 1-2 days. Patient is advised to return if any worsening condition or if any changes in status that are concerning. This report is dictated with Status4 rf engineer software which may occasionally lead to discrepancies related to use of this software. Last Vital Signs Date Time Temp Pulse Resp B/P (MAP) Pulse Ox O2 Delivery O2 Flow Rate FiO2 10/20/19 20:38 99.0 84 18 110/73 97 Room Air Status: improved Disposition: HOME, SELF-CARE Condition: Stable Scripts Hydroxyurea* (HYDREA 500mg*) 500 Mg Capsule 500 MG PO BID for 30 Days, #60 CAP Prov: Dante Cardona MD 10/20/19 Referrals: NOT CHOSEN IPA/,REFERRING (PCP) Patient Instructions: Sickle Cell Anemia, Adult Additional Instructions: Follow up with your doctor and market editor for refills of pain medication. Return if worse. Dante Cardona MD Oct 21, 2019 23:50
== END 2019-10-20 20:41 | disposition home or self-care (01) ==
LOC: EMR 19:50
DX: G89.29 Other chronic pain (principal); D57.1 Sickle-cell disease without crisis; Z88.8 Allergy status to other drugs, medicaments and biological substances; Z90.89 Acquired absence of other organs; Z87.442 Personal history of urinary calculi
CPT/HCPCS: 96372; 99283; J1200; J2270

== ENCOUNTER 2020-01-01 09:36 | Emergency (ER) | payer MEDICARE, OTHER ==
[~2020-01-01] VITALS: Ht 157.5 cm; Wt 62.1 kg
--- NOTE | 2020-01-01 09:50 | NUR ---
ED Nurse Note: Pt walked in from home c/o generalized body pain /10 with n/v x 3/4 days. Hx of sickle cell anemia. Respirations even and unlabored on room air. Vitals stable as documented.
[2020-01-01 09:55] VITALS: BP 116/71
[2020-01-01] MEDS ORDERED: HYDROmorphone 1mg/ml Carpuject IM ONE (10:15)
[2020-01-01] MEDS ORDERED: DiphenhydrAMINE 50mg/ml Inj IM ONE (10:15)
[2020-01-01] MEDS ORDERED: ONDANSETRON ODT4 MG BC (10:27)
[2020-01-01 10:35] VITALS: BP 106/79
--- NOTE | 2020-01-01 10:35 | NUR ---
ER DISCHARGE NOTE: Patient is cleared to be discharged per ERMD, pt is aox4, on room air, with stable vital signs as documented. pt was given dc and prescription instructions, pt was able to verbalize understanding, pt id band removed. pt is able to ambulate with steady gait. pt took all belongings.
--- NOTE | 2020-01-01 14:21 | Emergency Room Report ---
History of Present Illness General Chief Complaint: Pain Source: Patient Present Illness HPI 34-year-old female presents with generalized pain. History of sickle cell disease. Pain for the last 3 to 4 days. Pain is dull, 8 out of 10, nonradiating. Denies chest pain or shortness of breath. Denies fevers or chills. States she is been compliant with her medications. No other aggravating relieving factors. Denies any other associated symptoms Allergies: Coded Allergies: METOCLOPRAMIDE (Verified Allergy, Mild, Rash, 07/27/12) KETOROLAC (Verified Allergy, Unknown, 11/25/13) PROCHLORPERAZINE EDISYLATE (Verified Adverse Reaction, Intermediate, Shortness of Breath, 05/30/12) ANX PROCHLORPERAZINE MALEATE (Verified Adverse Reaction, Intermediate, Shortness of Breath, 05/30/12) ANX COVID-19 Screening Contact w/high risk pt: No Recent Travel to affected area: No Experienced COVID-19 symptoms?: No COVID-19 Testing performed LADLER: Yes COVID-19 Screening: Negative COVID-19 COVID-19 Testing Source: [facility] Patient History Past Medical History: none Past Surgical History: none Pertinent Family History: none Social History: Denies: smoking, alcohol use, drug use Now: No Reviewed Nursing Documentation: PMH: Agreed; PSxH: Agreed Nursing Documentation-PMH Past Medical History: No History, Except For Hx Hypertension: No Hx Pacemaker: No Hx Asthma: Yes Hx COPD: No Hx Diabetes: No Hx Cancer: No Hx Gastrointestinal Problems: Yes - KIDNEY STONE, appendectomy Hx Dialysis: No Hx Neurological Problems: No Hx Cerebrovascular Accident: No Hx Seizures: No Review of Systems All Other Systems: negative except mentioned in HPI Physical Exam Vital Signs Date Time Temp Pulse Resp B/P (MAP) Pulse Ox O2 Delivery O2 Flow Rate FiO2 01/01/20 09:41 98.8 90 17 110/77 (88) 97 Room Air Sp02 EP Interpretation: reviewed, normal General Appearance: no apparent distress, alert, GCS 15, non-toxic Head: normocephalic, atraumatic Eyes: bilateral eye normal inspection, bilateral eye PERRL ENT: hearing grossly normal, normal pharynx, no angioedema, normal voice Neck: full range of motion, supple/symm/no masses Respiratory: chest non-tender, lungs clear, normal breath sounds, speaking full sentences Cardiovascular #1: regular rate, rhythm, no edema Cardiovascular #2: 2+ carotid (R), 2+ carotid (L), 2+ radial (R), 2+ radial (L) , 2+ dorsalis pedis (R), 2+ dorsalis pedis (L) Gastrointestinal: normal bowel sounds, non tender, soft, non-distended, no guarding, no rebound Rectal: deferred Genitourinary: normal inspection, no CVA tenderness Musculoskeletal: back normal, normal range of motion, gait/station normal, non- tender Neurologic: alert, motor strength/tone normal, oriented x3, sensory intact, responsive, speech normal Psychiatric: judgement/insight normal, memory normal, mood/affect normal, no suicidal/homicidal ideation Reflexes: 3+ bicep (R), 3+ bicep (L), 3+ tricep (R), 3+ tricep (L), 3+ knee (R) , 3+ knee (L) Lymphatic: no adenopathy Medical Decision Making Diagnostic Impression: Primary Impression: Chronic pain Qualified Codes: G89.29 - Other chronic pain ER Course Hospital Course 34-year-old female presents with generalized pain. History of sickle cell Differential diagnoses include: NE/unstable angina, sickle cell crisis, sepsis, UTI, pneumonia Clinical course Patient placed on stretcher. on conveyor monitor. After initial history exam reveals female in no acute distress. Exam unremarkable. Patient well-known to [facility] [place] [place]. Been here multiple times for sickle cell and chronic pain. Vital stable. No signs of distress. I agree to pain medication here. Patient declines lab draw or IV access. Safe for discharge and close outpatient follow-up I. I feel this is a highly complex case requiring extensive working including EKG/Rhythm strip, Xray/CT/US, Blood/urine lab work, repeat exams while in ED, and administration of strong opiates/narcotics for pain control, admission to hospital or close patient follow up. Diagnosis - chronic pain stable and discharged to home. f/u with PMD. return to ED if symptoms recur/ worsen. Last Vital Signs Date Time Temp Pulse Resp B/P (MAP) Pulse Ox O2 Delivery O2 Flow Rate FiO2 7/8/20 10:35 98.0 79 17 106/79 97 Room Air Status: improved Disposition: HOME, SELF-CARE Condition: Stable Scripts Ondansetron Odt* (ZOFRAN ODT*) 4 Mg Tab.rapdis 4 MG BC EVERY 6 HOURS PRN for Nausea & Vomiting, #10 TAB 0 Refills Prov: Emerson Londono MD 01/01/20 Referrals: [facility] Patient Instructions: Sickle Cell Anemia, Adult Emerson Londono MD Jan 01, 2020 14:21
== END 2020-01-01 10:35 | disposition home or self-care (01) ==
LOC: EMR 10:15
DX: G89.29 Other chronic pain (principal); Z90.89 Acquired absence of other organs; Z87.442 Personal history of urinary calculi; Z88.8 Allergy status to other drugs, medicaments and biological substances
CPT/HCPCS: 96372; 99283; J1170; J1200

== ENCOUNTER 2020-01-23 03:50 | Emergency (ER) | payer MEDICARE, OTHER ==
[~2020-01-23] VITALS: Ht 157.5 cm; Wt 59.0 kg
[~2020-01-23 03:50] MED LIST changes: +ONDANSETRON ODT4 MG BC
--- NOTE | 2020-01-23 04:03 | NUR ---
ED Nurse Note: Pt ambulated to ED from home c/o sickle cell related genrealized body pain 04/04, unrelieved by her normally prescribed medication, pt is A&OX3, drowsy. VSS. Pt placed on alarm security or surveillance monitor. Pt states she is compliant with medications.
[2020-01-23 04:05] VITALS: BP 130/81
[2020-01-23 04:20] VITALS: BP 130/81
--- NOTE | 2020-01-23 04:20 | NUR ---
ER DISCHARGE NOTE: Patient is cleared to be discharged per ERMD, pt is aox4, on room air, with stable vital signs. pt refused pain medication. pt is able to ambulate with steady gait. pt took all belongings.
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
== END 2020-01-23 04:20 | disposition home or self-care (01) ==
LOC: EMR 04:09
DX: Z76.5 Malingerer [conscious simulation] (principal); F11.20 Opioid dependence, uncomplicated; D57.1 Sickle-cell disease without crisis; R52 Pain, unspecified; Z88.8 Allergy status to other drugs, medicaments and biological substances; J45.909 Unspecified asthma, uncomplicated; Z87.442 Personal history of urinary calculi; Z98.890 Other specified postprocedural states
CPT/HCPCS: 99281

== ENCOUNTER 2020-02-06 21:49 | Emergency (ER) | payer MEDICARE, OTHER ==
[~2020-02-06] VITALS: Ht 157.5 cm; Wt 63.5 kg
[2020-02-06 22:00] VITALS: BP 117/77
[2020-02-06] MEDS ORDERED: Morphine Sulfate 2mg/ml Inj(IV/IM USE ONLY) IM ONE (22:15)
[2020-02-06] MEDS ORDERED: HYDREA500 MG PO (22:15)
[2020-02-06] MEDS ORDERED: ZOFRAN4 MG ORAL (22:15)
[2020-02-06] MEDS ORDERED: Morphine Sulfate 10mg/ml Inj ONE (22:16)
[2020-02-06 22:30] VITALS: BP 115/69
[2020-02-06] MEDS ORDERED: DiphenhydrAMINE 50mg/ml Inj IM ONE (22:30)
--- NOTE | 2020-02-06 22:55 | Emergency Room Report ---
History of Present Illness General Chief Complaint: Pain Present Illness HPI Disclaimer: Please note that this report is being documented using HemarinaON technology. This can lead to erroneous entry secondary to incorrect interpretation by the dictating instrument. HPI: 34-year-old female history of sickle cell disease and chronic pain well known to me from other emergency rooms presents for acute on chronic pain. She reports diffuse body aches specifically in her low back for the past few days. She has been compliant with her medications besides hydroxyurea which she has run out of. She denies any fevers shortness of breath or cough. She is tolerating oral intake. Arrived ambulatory no acute distress. PMH: Sickle cell disease PSH: Reviewed Social Hx: Denies smoking drinking or illicit drug use Allergies: Coded Allergies: METOCLOPRAMIDE (Verified Allergy, Mild, Rash, 07/27/12) KETOROLAC (Verified Allergy, Unknown, 11/25/13) PROCHLORPERAZINE EDISYLATE (Verified Adverse Reaction, Intermediate, Shortness of Breath, 05/30/12) ANX PROCHLORPERAZINE MALEATE (Verified Adverse Reaction, Intermediate, Shortness of Breath, 05/30/12) ANX COVID-19 Screening Contact w/high risk pt: No Recent Travel to affected area: No Experienced COVID-19 symptoms?: No COVID-19 Testing performed SOFTWARE RELEASE ENGINEER: No Patient History Last Menstrual Period: 01/31/2020 Reviewed Nursing Documentation: PMH: Agreed; PSxH: Agreed Nursing Documentation-PMH Hx Cardiac Problems: No - sickle cell Hx Hypertension: No Hx Pacemaker: No Hx Asthma: Yes Hx COPD: No Hx Diabetes: No Hx Cancer: No Hx Gastrointestinal Problems: Yes - KIDNEY STONE, appendectomy Hx Dialysis: No Hx Neurological Problems: No Hx Cerebrovascular Accident: No Hx Seizures: No Review of Systems All Other Systems: negative except mentioned in HPI Physical Exam Vital Signs Date Time Temp Pulse Resp B/P (MAP) Pulse Ox O2 Delivery O2 Flow Rate FiO2 02/06/20 21:52 98.2 73 15 117/77 (90) 100 Room Air Sp02 EP Interpretation: reviewed, normal General Appearance: well appearing, no apparent distress Head: normocephalic, atraumatic Eyes: bilateral eye PERRL, bilateral eye EOMI ENT: hearing grossly normal, moist mucus membranes Neck: full range of motion, supple Respiratory: lungs clear, normal breath sounds, no rhonchi, no respiratory distress, no retraction, no wheezing Cardiovascular #1: normal peripheral pulses, regular rate, rhythm, no murmur Gastrointestinal: non tender, soft, non-distended, no guarding Neurologic: alert, oriented x3, no focal defects Skin: normal color, warm/dry Medical Decision Making Diagnostic Impression: Primary Impression: Chronic pain ER Course Patient presents for chronic pain. Differential included but not limited to chronic pain syndrome, medication noncompliance, drug-seeking behavior to name a few. Patient has no acute distress. She does have a history of sickle cell disease. At this time with stable vital signs patient in no acute distress I do not believe she requires laboratory studies. IM pain medications were given. Patient given a refill of her hydroxyurea and Zofran as needed. Otherwise nontoxic no acute distress low suspicion for acute chest or other emergent medical process. Stable for discharge. Last Vital Signs Date Time Temp Pulse Resp B/P (MAP) Pulse Ox O2 Delivery O2 Flow Rate FiO2 02/06/20 22:30 98.2 78 19 115/69 99 Room Air Disposition: HOME, SELF-CARE Condition: Stable Scripts Ondansetron (Zofran) 4 Mg Tablet 4 MG ORAL Q8H PRN for Nausea & Vomiting, #20 TAB 0 Refills Prov: Louie Otero M.D. 02/06/20 Hydroxyurea* (HYDREA 500mg*) 500 Mg Capsule 500 MG PO BID, #60 CAP Prov: Louie Otero M.D. 02/06/20 Referrals: NON PHYSICIAN (PCP) Patient Instructions: Sickle Cell Anemia, Adult, [id number] Additional Instructions: Patient is instructed to follow-up with her primary care doctor, primary care clinic or county clinic in 1 to 2 days. Patient instructed to return for any worsening symptoms or concerns. Disclaimer: Please note that this report is being documented using SpinPunch technology. This can lead to erroneous entry secondary to incorrect interpretation by the dictating instrument. Louie Otero M.D. Feb 06, 2020 22:55
== END 2020-02-06 22:30 | disposition home or self-care (01) ==
LOC: EMR 22:15
DX: G89.29 Other chronic pain (principal); D57.1 Sickle-cell disease without crisis; J45.909 Unspecified asthma, uncomplicated
CPT/HCPCS: 96372; 99283; J1200; J2270; J2405

== ENCOUNTER 2020-03-08 22:35 | Emergency (ER) | payer MEDICARE, OTHER ==
[~2020-03-08] VITALS: Ht 157.5 cm; Wt 59.0 kg
[2020-03-08] MEDS ORDERED: FOLIC ACID1 MG ORAL (22:42)
--- NOTE | 2020-03-08 22:43 | Emergency Room Report ---
History of Present Illness General Chief Complaint: Nausea Source: Patient Present Illness HPI 34-year-old female with history of sickle cell disease here with nausea, vomiting, "sickle cell pain crisis." Patient says that for the past 3 days she has been suffering from the symptoms including pain in her bilateral hips, lower back. She says that these are the usual symptoms of her normal sickle cell pain crises. Patient says that she has had acute chest syndrome in the past and "this feels nothing like that." At this time patient is only requesting pain medication, nausea medication, and then wishes to be discharged. She does not want any lab draws. She just had her labs checked at her primary care provider's office 4 days ago and she reports that she had a normal reticulocyte count and a hemoglobin of 8.4. She says "I usually live in the mid eights." Denies headache, vision changes, fevers, chills, chest pain, palpitations, shortness of breath, diarrhea, dysuria, vaginal discharge. Allergies: Coded Allergies: METOCLOPRAMIDE (Verified Allergy, Mild, Rash, 07/27/12) KETOROLAC (Verified Allergy, Unknown, 11/25/13) PROCHLORPERAZINE EDISYLATE (Verified Adverse Reaction, Intermediate, Shortness of Breath, 05/30/12) ANX PROCHLORPERAZINE MALEATE (Verified Adverse Reaction, Intermediate, Shortness of Breath, 05/30/12) ANX COVID-19 Screening Contact w/high risk pt: No Recent Travel to affected area: No Experienced COVID-19 symptoms?: No COVID-19 Testing performed FIREWOOD CUTTER: No Patient History Last Menstrual Period: 03/01/20 Nursing Documentation-[facility] Past Medical History: No History, Except For Hx Cardiac Problems: No - sickle cell Hx Hypertension: No Hx Pacemaker: No Hx Asthma: Yes Hx COPD: No Hx Diabetes: No Hx Cancer: No Hx Gastrointestinal Problems: Yes - KIDNEY STONE, appendectomy Hx Dialysis: No Hx Neurological Problems: No Hx Cerebrovascular Accident: No Hx Seizures: No Review of Systems All Other Systems: negative except mentioned in HPI Physical Exam Vital Signs Date Time Temp Pulse Resp B/P (MAP) Pulse Ox O2 Delivery O2 Flow Rate FiO2 03/08/20 22:39 98.2 76 18 136/90 (105) 97 Room Air Sp02 EP Interpretation: reviewed, normal General Appearance: no apparent distress, alert, non-toxic Head: normocephalic, atraumatic Eyes: bilateral eye normal inspection, bilateral eye PERRL ENT: hearing grossly normal, normal pharynx, no angioedema, normal voice Neck: full range of motion, supple/symm/no masses Respiratory: chest non-tender, lungs clear, normal breath sounds, speaking full sentences Cardiovascular #1: regular rate, rhythm, no edema Cardiovascular #2: 2+ carotid (R), 2+ carotid (L), 2+ radial (R), 2+ radial (L) , 2+ dorsalis pedis (R), 2+ dorsalis pedis (L) Gastrointestinal: normal bowel sounds, non tender, soft, non-distended, no guarding, no rebound Rectal: deferred Genitourinary: normal inspection, no CVA tenderness Musculoskeletal: back normal, normal range of motion, calf tenderness, gait/ station normal, non-tender Neurologic: alert, motor strength/tone normal, sensory intact, responsive, speech normal Psychiatric: judgement/insight normal, memory normal, mood/affect normal, no suicidal/homicidal ideation Lymphatic: no adenopathy Medical Decision Making Diagnostic Impression: Primary Impression: Sickle cell pain crisis Additional Impression: narcotic seeking behavior ER Course Laboratory Tests Test 03/09/20 00:10 Urine Color Pale yellow Urine Appearance Clear Urine pH 7 (4.5-8.0) Urine Specific [place] 1.010 (1.005-1.035) Urine Protein Negative (NEGATIVE) Urine Glucose (UA) Negative (NEGATIVE) Urine Ketones Negative (NEGATIVE) Urine Blood Negative (NEGATIVE) Urine Nitrite Negative (NEGATIVE) Urine Bilirubin Negative (NEGATIVE) Urine Urobilinogen Normal MG/DL (0.0-1.0) Urine Leukocyte Esterase Negative (NEGATIVE) Urine HCG, Qualitative Negative (NEGATIVE) 34-year-old female with sickle cell anemia here with generalized pain. Patient was refusing any blood draws and was only requesting narcotic pain medication and Zofran and Benadryl. Urine test negative and urinalysis negative. She was given 2 mg of Dilaudid intramuscular, 25 mg of Benadryl intramuscular, and Zofran ODT. She was then resting comfortably throughout the rest of her stay in the emergency department and tolerating p.o. intake. She was demanding more pain medications but then soon after fell asleep. She then woke up and was given a dose of Prim p.o. She recently had blood drawn at her primary care provider's office in which she had a hemoglobin of 8.4 which she says is her normal baseline, as well as a normal reticulocyte count. No worry at this time of any acute chest syndrome as patient was afebrile, normal vital signs, and not complaining of any chest pain or shortness of breath. She was told to come back if she has any of the symptoms. We will follow-up with her primary care provider. Discharged in stable condition. Last Vital Signs Date Time Temp Pulse Resp B/P (MAP) Pulse Ox O2 Delivery O2 Flow Rate FiO2 03/08/20 22:39 98.2 76 18 136/90 (105) 97 Room Air Julian Chávez M.D. Mar 08, 2020 22:43
[2020-03-08] MEDS ORDERED: DiphenhydrAMINE 50mg/ml Inj IVP ONE (22:45)
[2020-03-08] MEDS ORDERED: DiphenhydrAMINE 50mg/ml Inj IM ONE (23:00)
--- NOTE | 2020-03-08 23:00 | NUR ---
ED Nurse Note: Recieved pt from home, here with c/o generalized pain due to her sickle cell, pt rates pain at 8/10, denies chest pain, sob, or any other comlaints or discomforts, pt states was at PMD 1 week ago and had labs done and is refusing labs again, pt states she just needs pain meds for breakthrough, pt gowned and placed on cardiac monitoring, will resume care as ordered by md and closely monitor.
[2020-03-09] VITALS: BP 129/86
--- NOTE | 2020-03-09 00:10 | NUR ---
ED Nurse Note: Pt in bed sleeping, meds given effective, v/s stable, o2 sat=99% on RA, no changes or distress noted, will continue to monitor while waiting for disposition.
[2020-03-09 00:31] LABS: APPEARANCE,URINE CLEAR; BILIRUBIN, URINE NEGATIVE (NEGATIVE); COLOR,URINE PALE YELLOW; GLUCOSE, URINE (UA) NEGATIVE (NEGATIVE); KETONES,URINE NEGATIVE (NEGATIVE); LEUKOCYTE ESTERASE ,URINE NEGATIVE (NEGATIVE); NITRITE,URINE NEGATIVE (NEGATIVE); PH,URINE 7 (4.5-8.0); PROTEIN,URINE NEGATIVE (NEGATIVE); UROBILINOGEN,URINE NORMAL MG/DL (0.0-1.0)
--- NOTE | 2020-03-09 00:35 | NUR ---
ED Nurse Note: Pt awakened in room, ambulated to bathroom, steady gait, tolerated well, also given sandwich, juice and cookies, ate all, no nausea or emesis, pt resting quietly and on phone conversing, nad or s/s of pain noted. will prepare for discharge.
[2020-03-09] MEDS ORDERED: HYDROcodone/Acetamin 5/325 tab ORAL ONE (00:45)
--- NOTE | 2020-03-09 01:00 | NUR ---
ED Nurse Note: Pt medicated again for pain, states pain has returned, went in room to medicate and pt sleeping, when awakened states "i was not sleping, i need more dilaudid,", at bedside, discussed plan of care with pt, pt will be medicated orally and discharged, pt agrees with plan, nad or changes noted.
[2020-03-09 01:10] VITALS: BP 121/78
[2020-03-09 01:15] VITALS: BP 121/78
--- NOTE | 2020-03-09 01:15 | NUR ---
ER DISCHARGE NOTE: Patient is cleared to be discharged per ERMD, pt is aox4, on room air, with stable vital signs. pt was given dc and prescription instructions, pt was able to verbalize understanding, pt id band removed without complications. pt is able to ambulate with steady gait. pt took all belongings. pt d/c with family member to drive.
== END 2020-03-09 01:15 | disposition home or self-care (01) ==
LOC: EMR 22:53
DX: D57.00 Hb-SS disease with crisis, unspecified (principal); Z76.5 Malingerer [conscious simulation]; Z88.8 Allergy status to other drugs, medicaments and biological substances; Z90.89 Acquired absence of other organs; Z87.442 Personal history of urinary calculi
CPT/HCPCS: 81003; 81025; 96372; 99283; J1170; J1200

== ENCOUNTER 2020-03-14 03:15 | Emergency (ER) | payer MEDICARE, OTHER ==
[~2020-03-14] VITALS: Ht 157.5 cm; Wt 59.0 kg
[2020-03-14 03:38] VITALS: BP 114/77
--- NOTE | 2020-03-14 03:38 | NUR ---
ED Nurse Note: pt ambulated into ed from home CO sickle cell crisis pain 04/04. Pt aao x 4, vss no ss of distress noted. pt refused IV, ERMD aware. ERMD at bedside. Awaiting further orders.
[2020-03-14] MEDS ORDERED: Morphine Sulfate 2mg/ml Inj(IV/IM USE ONLY) IM ONE (03:45)
--- NOTE | 2020-03-14 03:50 | NUR ---
ED Nurse Note: Pt refused Morphine for pain. ERMD aware and notified. awaiting further orders.
--- NOTE | 2020-03-14 04:10 | NUR ---
ED Nurse Note: xray at bedside
--- NOTE | 2020-03-14 04:11 | NUR ---
ED Nurse Note: Blood work obtained and sent to lab. pt unable to to provide urine at this time.
[2020-03-14] MEDS ORDERED: HYDROmorphone 1mg/ml Carpuject IM ONE (04:15)
--- NOTE | 2020-03-14 04:15 | NUR ---
ED Nurse Note: all medications administered, pt tolerated well no ss of distress noted. will continue to monitor.
--- NOTE | 2020-03-14 04:21 | NUR ---
ED Nurse Note: pt in restroom providing urine sample.
--- NOTE | 2020-03-14 04:23 | NUR ---
ED Nurse Note: pt taken to CT in stable condition. UA sent to lab.
[2020-03-14 04:52] LABS: BASOPHILS % (AUTO) 1.1 % (0.0-2.0); EOSINOPHILS % (AUTO) 1.3 % (0.0-3.0); HEMATOCRIT 30.7 % (37.0-47.0); HEMOGLOBIN 9.7 G/DL (12.0-16.0); LYMPHOCYTES % (AUTO) 45.6 % (20.0-45.0); MEAN CORPUSCULAR VOLUME 87 FL (80-99); MONOCYTES % (AUTO) 6.2 % (1.0-10.0); NEUTROPHILS % (AUTO) 45.8 % (45.0-75.0); PLATELET COUNT 258 K/UL (150-450); RED BLOOD COUNT 3.54 M/UL (4.20-5.40); WHITE BLOOD COUNT 5.2 K/UL (4.8-10.8)
[2020-03-14 05:03] LABS: ANION GAP 13 mmol/L (5-15); BLOOD UREA NITROGEN 15 mg/dL (7-18); CALCIUM 8.5 MG/DL (8.5-10.1); CARBON DIOXIDE 25 MMOL/L (21-32); CHLORIDE 105 MMOL/L (98-107); CREATININE 0.7 MG/DL (0.55-1.30); POTASSIUM 3.2 MMOL/L (3.5-5.1); SODIUM 143 MMOL/L (136-145)
--- NOTE | 2020-03-14 05:04 | Diagnostic Imaging Report ---
EXAM: XR Chest, 1 View CLINICAL HISTORY: SOB TECHNIQUE: Frontal view of the chest. COMPARISON: No relevant prior studies available. FINDINGS: Lungs: Unremarkable. No consolidation. Pleural space: Unremarkable. No pneumothorax. Heart: Unremarkable. No cardiomegaly. Mediastinum: Unremarkable. Bones/joints: Unremarkable. IMPRESSION: No focal infiltrate.
[2020-03-14 05:08] LABS: ALANINE AMINOTRANSFERASE 19 U/L (12-78); ALBUMIN 3.7 G/DL (3.4-5.0); ALKALINE PHOSPHATASE 73 U/L (46-116); ASPARTATE AMINO TRANSFERASE 23 U/L (15-37); BILIRUBIN,TOTAL 0.3 MG/DL (0.2-1.0)
--- NOTE | 2020-03-14 05:08 | Diagnostic Imaging Report ---
EXAM: CT Head Without Intravenous Contrast CLINICAL HISTORY: AMS TECHNIQUE: Axial computed tomography images of the head/brain without intravenous contrast. CTDI is 53.40 mGy and DLP is 1179.10 mGy-cm. One or more of the following dose reduction techniques were used: automated exposure control, adjustment of the mA and/or kV according to patient size, use of iterative reconstruction technique. COMPARISON: No relevant prior studies available. FINDINGS: No acute intracranial hemorrhage. No midline shift or mass effect. The territorial acuna-white matter differentiation is maintained throughout. The ventricles and sulci are commensurate for age. The visualized orbits appear grossly unremarkable. The calvarium is intact. The visualized paranasal sinuses and mastoid air cells are grossly clear. IMPRESSION: No acute intracranial hemorrhage, midline shift, or mass effect.
--- NOTE | 2020-03-14 05:31 | NUR ---
ED Nurse Note: all medications administered, pt tolerated well no ss of distress noted. will continue to monitor.
[2020-03-14 05:32] VITALS: BP 119/72
[2020-03-14 05:56] VITALS: BP 122/72
--- NOTE | 2020-03-14 05:56 | NUR ---
ER DISCHARGE NOTE: Patient is cleared to be discharged home per ERMD, pt is aox4, 98% on room air, with stable vital signs. pt was given dc instructions, pt was able to verbalize understanding, pt id band removed. pt is able to ambulate with steady gait. pt took all belongings.
--- NOTE | 2020-03-17 06:23 | Emergency Room Report ---
History of Present Illness General Chief Complaint: Pain Source: Patient Present Illness HPI Patient is a 34-year-old female presents for increased generalized body pain. Prior history of sickle cell disease. Multiple previous ER visits for similar symptoms in the past. Reports having been taken oral Dilaudid for pain. Denies any fever. Reports having pain diffusely throughout her body. Denies any nause a or vomiting. Reports having taken medications earlier today. Denies any increased weakness. States her normal hemoglobin is approximately 9. Had recent blood draw with her primary care physician less than a week ago. Allergies: Coded Allergies: METOCLOPRAMIDE (Verified Allergy, Mild, Rash, 07/27/12) KETOROLAC (Verified Allergy, Unknown, 11/25/13) PROCHLORPERAZINE EDISYLATE (Verified Adverse Reaction, Intermediate, Shortness of Breath, 05/30/12) ANX PROCHLORPERAZINE MALEATE (Verified Adverse Reaction, Intermediate, Shortness of Breath, 05/30/12) ANX COVID-19 Screening Contact w/high risk pt: No Recent Travel to affected area: No Experienced COVID-19 symptoms?: No COVID-19 Testing performed TIE MAKER: No Patient History Past Medical History: see triage record Now: No Reviewed Nursing Documentation: PMH: Agreed; PSxH: Agreed Nursing Documentation-PMH Hx Cardiac Problems: No - sickle cell Hx Hypertension: No Hx Pacemaker: No Hx Asthma: Yes Hx COPD: No Hx Diabetes: No Hx Cancer: No Hx Gastrointestinal Problems: Yes - KIDNEY STONE, appendectomy Hx Dialysis: No Hx Neurological Problems: No Hx Cerebrovascular Accident: No Hx Seizures: No Review of Systems All Other Systems: negative except mentioned in HPI Physical Exam Vital Signs Date Time Temp Pulse Resp B/P (MAP) Pulse Ox O2 Delivery O2 Flow Rate FiO2 03/14/20 03:28 98.2 82 16 114/77 (89) 97 Room Air Sp02 EP Interpretation: reviewed, normal General Appearance: normal inspection, well appearing, no apparent distress, alert, GCS 15, non-toxic Head: atraumatic ENT: normal ENT inspection, hearing grossly normal, normal voice Neck: normal inspection, full range of motion, supple, no bony tend Respiratory: normal inspection, lungs clear, normal breath sounds, no respiratory distress, no retraction, no wheezing Cardiovascular #1: normal peripheral pulses, regular rate, rhythm, no edema Gastrointestinal: normal inspection, normal bowel sounds, non tender, soft, no guarding, no hernia Genitourinary: no CVA tenderness Musculoskeletal: normal inspection, back normal, normal range of motion Neurologic: alert, motor strength/tone normal, meter tester polyphase III-XII nml as tested, oriented x3, responsive, speech normal, normal inspection Psychiatric: normal inspection, judgement/insight normal, mood/affect normal Medical Decision Making Diagnostic Impression: Primary Impression: Sickle cell disease ER Course Patient presented for generalized body pain. Differential diagnosis include was not limited to sickle cell pain crisis, anemia, aplastic crisis among others. Because of complexity of patient's case laboratory tests and imaging studies were ordered. Chest x-ray 1 view interpreted by me showed normal cardiac size without evident infiltrate. Patient's laboratory tests was essentially unremarkable. Hemoglobin appears to be adequate and patient was given pain medications. She was noted to have improvement in pain control. Patient did refuse IV fluids as well as IV medications. She was able to tolerate oral fluids. Patient appears to be stable for discharge. The patient is advised to follow up with primary care doctor in 1-2 days. Patient is advised to return if any worsening condition or if any changes in status that are concerning. This report is dictated with [employer] breaker off software which may occasionally lead to discrepancies related to use of this software. Labs Test 03/14/20 04:10 03/14/20 04:24 White Blood Count 5.2 K/UL (4.8-10.8) Red Blood Count 3.54 M/UL (4.20-5.40) Hemoglobin 9.7 G/DL (12.0-16.0) Hematocrit 30.7 % (37.0-47.0) Mean Corpuscular Volume 87 FL (80-99) Mean Corpuscular Hemoglobin 27.5 PG (27.0-31.0) Mean Corpuscular Hemoglobin Concent 31.7 G/DL (32.0-36.0) Red Cell Distribution Width 14.0 % (11.6-14.8) Platelet Count 258 K/UL (150-450) Mean Platelet Volume 6.1 FL (6.5-10.1) Neutrophils (%) (Auto) 45.8 % (45.0-75.0) Lymphocytes (%) (Auto) 45.6 % (20.0-45.0) Monocytes (%) (Auto) 6.2 % (1.0-10.0) Eosinophils (%) (Auto) 1.3 % (0.0-3.0) Basophils (%) (Auto) 1.1 % (0.0-2.0) Reticulocyte Count 0.4 % (0.5-2.0) Sodium Level 143 MMOL/L (136-145) Potassium Level 3.2 MMOL/L (3.5-5.1) Chloride Level 105 MMOL/L (98-107) Carbon Dioxide Level 25 MMOL/L (21-32) Anion Gap 13 mmol/L (5-15) Blood Urea Nitrogen 15 mg/dL (7-18) Creatinine 0.7 MG/DL (0.55-1.30) Estimat Glomerular Filtration Rate > 60 mL/min (>60) Glucose Level 126 MG/DL (74-106) Calcium Level 8.5 MG/DL (8.5-10.1) Total Bilirubin 0.3 MG/DL (0.2-1.0) Aspartate Amino Transf (AST/SGOT) 23 U/L (15-37) Alanine Aminotransferase (ALT/SGPT) 19 U/L (12-78) Alkaline Phosphatase 73 U/L (46-116) Troponin I 0.000 ng/mL (0.000-0.056) Total Protein 7.4 G/DL (6.4-8.2) Albumin 3.7 G/DL (3.4-5.0) Globulin 3.7 g/dL Albumin/Globulin Ratio 1.0 (1.0-2.7) Urine HCG, Qualitative Negative (NEGATIVE) Last Vital Signs Date Time Temp Pulse Resp B/P (MAP) Pulse Ox O2 Delivery O2 Flow Rate FiO2 03/14/20 05:56 98.2 72 16 122/72 99 Room Air Status: improved Disposition: HOME, SELF-CARE Condition: Stable Referrals: NOT CHOSEN IPA/,REFERRING (PCP) Patient Instructions: Sickle Cell Anemia, Adult Additional Instructions: Follow up with your doctor for recheck. Return if worse. Dante Cardona MD Mar 17, 2020 06:23
== END 2020-03-14 05:56 | disposition home or self-care (01) ==
LOC: EMR 03:42
DX: D57.1 Sickle-cell disease without crisis (principal); Z88.8 Allergy status to other drugs, medicaments and biological substances; Z90.89 Acquired absence of other organs; Z87.442 Personal history of urinary calculi
CPT/HCPCS: 70450; 71045; 80053; 81025; 84484; 85025; 85044; 93005; 96372; 99284; J1170; J8499

== ENCOUNTER 2020-04-05 22:23 | Emergency (ER) | payer MEDICARE, OTHER ==
[~2020-04-05] VITALS: Ht 157.5 cm; Wt 61.2 kg
[2020-04-05 22:34] VITALS: BP 115/67
--- NOTE | 2020-04-05 22:34 | NUR ---
ED Nurse Note: pt walked into ED from home c/o generalized body pain for 2 days unrelieved with dilaudid pill at 1800. On arrival pt was hunched over, with facial grimace.
--- NOTE | 2020-04-05 22:36 | NUR ---
ED Nurse Note: pt walked out of ED stating she needs to find her ID, pt left without being seen by EDMD.
--- NOTE | 2020-04-05 22:39 | Emergency Room Report ---
History of Present Illness General Chief Complaint: Pain Source: Patient, Medical Record Present Illness HPI Is a 34-year-old female well-known to me. She has a history of sickle cell with frequent crisis. She presents with chief complaint of generalized body pain. Told the triage nurse that this been ongoing for couple days. Her oral Dilaudid is not helping. She walked in here and saw me as the attending doctor. She made an excuse that she needs to get her ID from the car and never returned. This patient is well-known to me. She is from [place] yet she come all the way here. She has been to multiple hospitals for the same thing. I did not get to see this patient other than seeing her walked by me. Allergies: Coded Allergies: METOCLOPRAMIDE (Verified Allergy, Mild, Rash, 07/27/12) KETOROLAC (Verified Allergy, Unknown, 11/25/13) PROCHLORPERAZINE EDISYLATE (Verified Adverse Reaction, Intermediate, Shortness of Breath, 05/30/12) ANX PROCHLORPERAZINE MALEATE (Verified Adverse Reaction, Intermediate, Shortness of Breath, 05/30/12) ANX COVID-19 Screening Contact w/high risk pt: No Recent Travel to affected area: No Experienced COVID-19 symptoms?: No COVID-19 Testing performed HOGSHEAD DUMPER: No Patient History Past Medical History: see triage record, old chart reviewed Past Surgical History: none Pertinent Family History: none Social History: Denies: smoking Last Menstrual Period: 03/2020 Now: No Immunizations: other Reviewed Nursing Documentation: PMH: Agreed; PSxH: Agreed Nursing Documentation-PMH Hx Cardiac Problems: No - sickle cell Hx Hypertension: No Hx Pacemaker: No Hx Asthma: Yes Hx COPD: No Hx Diabetes: No Hx Cancer: No Hx Gastrointestinal Problems: Yes - KIDNEY STONE, appendectomy Hx Dialysis: No Hx Neurological Problems: No Hx Cerebrovascular Accident: No Hx Seizures: No Physical Exam Vital Signs Date Time Temp Pulse Resp B/P (MAP) Pulse Ox O2 Delivery O2 Flow Rate FiO2 04/05/20 22:26 98.8 85 16 115/67 (83) 97 Room Air Medical Decision Making Diagnostic Impression: Primary Impression: Drug-seeking behavior Additional Impression: acute sickle cell pain crisis ER Course Patient presents with chief complaint of sickle cell pain. She has stable vitals and is ambulating without any difficulty. She made an excuse of leaving something in the car and left and never returned. I suspect drug-seeking mayra mo since she is from [place] and has multiple trips in from multiple different providers. She was just here on March 08 and March 14. On the [facility] system, she received prescription on February 24, February 28, March 12. Patient 3 prescriptions were filled in [place]. Last Vital Signs Date Time Temp Pulse Resp B/P (MAP) Pulse Ox O2 Delivery O2 Flow Rate FiO2 04/05/20 22:26 98.8 85 16 115/67 (83) 97 Room Air Status: unchanged Disposition: ELOPED Condition: Stable Silas Garcia MD Apr 05, 2020 22:39
== END 2020-04-05 22:50 | disposition left against medical advice (07) ==
LOC: EMR 22:44
DX: D57.00 Hb-SS disease with crisis, unspecified (principal); Z76.5 Malingerer [conscious simulation]; Z90.89 Acquired absence of other organs; Z87.442 Personal history of urinary calculi; Z88.6 Allergy status to analgesic agent
CPT/HCPCS: 99281

== ENCOUNTER 2020-04-15 00:59 | Emergency (ER) | payer MEDICARE, OTHER ==
[~2020-04-15] VITALS: Ht 157.5 cm; Wt 59.9 kg
--- NOTE | 2020-04-15 01:10 | NUR ---
ED Nurse Note: Patient walked into the ED from home with c/o sickle cell crisis onset 4 days ago. Patient has hx of sickle cell and is c/o of body pain, 01/02. Patient came to the ED to refill hydroxyurea. Patient denies fever adn chills. N&V, CP/SOB/. PAtient is AAOx4 and ambulatory. Denies injury or trauma
--- NOTE | 2020-04-15 01:11 | NUR ---
ED Nurse Note: ERMD at bedside
[2020-04-15] MEDS ORDERED: HYDREA500 MG PO (01:19)
--- NOTE | 2020-04-15 01:19 | Emergency Room Report ---
History of Present Illness General Chief Complaint: Pain Source: Patient, Medical Record Present Illness HPI Is a 34-year-old female with a history of sickle cell with frequent crisis. She presents with chief complaint of body pain. Onset for last 4 days. Similar to her previous sickle cell pain. Denies any fever chills but denies any nausea or vomiting. Pain is 7 out of 10. Here she is asking for refill on her hydroxyurea. Says she is out of it for last 2 days. Denies any other complaint. Allergies: Coded Allergies: METOCLOPRAMIDE (Verified Allergy, Mild, Rash, 07/27/12) KETOROLAC (Verified Allergy, Unknown, 11/25/13) PROCHLORPERAZINE EDISYLATE (Verified Adverse Reaction, Intermediate, Shortness of Breath, 05/30/12) ANX PROCHLORPERAZINE MALEATE (Verified Adverse Reaction, Intermediate, Shortness of Breath, 05/30/12) ANX COVID-19 Screening Contact w/high risk pt: No Recent Travel to affected area: No Experienced COVID-19 symptoms?: No COVID-19 Testing performed DIRECTOR OF WEB MARKETING: No Patient History Past Medical History: see triage record, old chart reviewed Past Surgical History: other Pertinent Family History: none Social History: Denies: smoking Now: No Immunizations: other Reviewed Nursing Documentation: PMH: Agreed; PSxH: Agreed Nursing Documentation-PMH Hx Cardiac Problems: No - sickle cell Hx Hypertension: No Hx Pacemaker: No Hx Asthma: Yes Hx COPD: No Hx Diabetes: No Hx Cancer: No Hx Gastrointestinal Problems: Yes - KIDNEY STONE, appendectomy Hx Dialysis: No Hx Neurological Problems: No Hx Cerebrovascular Accident: No Hx Seizures: No Review of Systems Eye: Denies: eye pain, blurred vision ENT: Denies: ear pain, nose congestion, throat swelling Respiratory: Denies: cough, shortness of breath Cardiovascular: Denies: chest pain, palpitations Gastrointestinal: Denies: abdominal pain, diarrhea, nausea, vomiting Musculoskeletal: Denies: back pain, joint pain Skin: Denies: rash Neurological: Denies: headache, numbness Endocrine: Denies: increased thirst, increased urine Hematologic/Lymphatic: Denies: easy bruising All Other Systems: negative except mentioned in HPI Physical Exam Vital Signs Date Time Temp Pulse Resp B/P (MAP) Pulse Ox O2 Delivery O2 Flow Rate FiO2 04/15/20 01:00 98.2 73 16 134/91 (105) 99 Room Air Vitals normal Sp02 EP Interpretation: reviewed, normal General Appearance: well appearing, no apparent distress, alert Head: normocephalic, atraumatic Eyes: bilateral eye PERRL, bilateral eye EOMI ENT: hearing grossly normal, normal pharynx Neck: full range of motion, supple, no meningismus Respiratory: chest non-tender, lungs clear, normal breath sounds Cardiovascular #1: regular rate, rhythm, no murmur Gastrointestinal: normal bowel sounds, non tender, no mass, no organomegaly, no bruit, non-distended Musculoskeletal: back normal, normal range of motion, gait/station normal Psychiatric: mood/affect normal Medical Decision Making Diagnostic Impression: Primary Impression: Sickle cell anemia Qualified Codes: D57.00 - Hb-SS disease with crisis, unspecified ER Course This patient presents with sickle cell crisis. This is a chronic issue for her. She is asking for refill on her hydroxyurea. States she has an appointment for a new doctor in a few days. Last Vital Signs Date Time Temp Pulse Resp B/P (MAP) Pulse Ox O2 Delivery O2 Flow Rate FiO2 04/15/20 01:00 98.2 73 16 134/91 (105) 99 Room Air Status: unchanged Disposition: HOME, SELF-CARE Condition: Stable Scripts Hydroxyurea* (HYDREA 500mg*) 500 Mg Capsule 500 MG PO BID, #60 CAP Prov: Silas Garcia MD 04/15/20 Referrals: NOT CHOSEN IPA/,REFERRING (PCP) Additional Instructions: Follow-up with out in 7 days. Keep your appointment. Return if symptoms worsen. Silas Garcia MD Apr 15, 2020 01:19
--- NOTE | 2020-04-15 01:25 | NUR ---
ER DISCHARGE NOTE: Patient is cleared to be discharged per ERMD, pt is aox4, on room air, with stable vital signs. pt was given dc and prescription instructions, pt was able to verbalize understanding, pt id band removed. pt is able to ambulate with steady gait. pt took all belongings.
[2020-04-15 01:30] VITALS: BP 134/91
== END 2020-04-15 01:35 | disposition home or self-care (01) ==
LOC: EMR 01:13
DX: D57.00 Hb-SS disease with crisis, unspecified (principal); Z90.89 Acquired absence of other organs; Z87.442 Personal history of urinary calculi; Z88.8 Allergy status to other drugs, medicaments and biological substances
CPT/HCPCS: 99282

== ENCOUNTER 2020-04-28 20:29 | Emergency (ER) | payer MEDICARE, OTHER ==
[~2020-04-28] VITALS: Ht 157.5 cm; Wt 61.2 kg
--- NOTE | 2020-04-28 20:56 | NUR ---
ED Nurse Note: Pt walked into ED from home c/o 04/04 generalized pain. Pt has PMH of sickle cell anemia and frequently has uncontrolled pain. Pt is AAOx4, breathing even and unlabored, vital signs stable as documented.
[2020-04-28 20:58] VITALS: BP 106/70
--- NOTE | 2020-04-28 21:10 | NUR ---
ED Nurse Note: EDMD aware unable to draw blood, pt unable to give urine. Pt refusing IV fluids, per pt she does not get IVs since she is hardstick. Pt requesting IM pain medication.
--- NOTE | 2020-04-28 21:29 | NUR ---
ED Nurse Note: model maker at bedside drawing blood
[2020-04-28] MEDS ORDERED: HYDROmorphone 1mg/ml Carpuject IM ONE (21:30)
--- NOTE | 2020-04-28 21:35 | NUR ---
ED Nurse Note: blood collected by corporate sales trainer and sent to lab
--- NOTE | 2020-04-28 21:45 | Emergency Room Report ---
History of Present Illness General Chief Complaint: Pain Source: Patient Present Illness HPI This patient is well-known to [facility]. The patient has a history of sickle cell disease. She also requires high doses of opioids to control her chronic pain. She is seen here at [facility] regularly. She states that she has had all over body pain related to her sickle cell. She denies localized chest pain or difficulty breathing. She denies fever chills. She denies nausea or vomiting. She denies abdominal pain. She denies dysuria or hematuria. She states that she does not currently have a pain management physician. However, she states that she is going to see her new primary care physician and plans to get a referral to a pain management physician. She is taking the medications for sickle cell from her salon shampoo assistant. Allergies: Coded Allergies: METOCLOPRAMIDE (Verified Allergy, Mild, Rash, 07/27/12) KETOROLAC (Verified Allergy, Unknown, 11/25/13) PROCHLORPERAZINE EDISYLATE (Verified Adverse Reaction, Intermediate, Shortness of Breath, 05/30/12) ANX PROCHLORPERAZINE MALEATE (Verified Adverse Reaction, Intermediate, Shortness of Breath, 05/30/12) ANX COVID-19 Screening Contact w/high risk pt: No Recent Travel to affected area: No Experienced COVID-19 symptoms?: No COVID-19 Testing performed DIGITAL PRESS OPERATOR: No Patient History Past Medical History: see triage record, asthma, other - SCD Past Surgical History: appy Social History: Denies: smoking, alcohol use, drug use Last Menstrual Period: 03/31/20 Now: No Reviewed Nursing Documentation: PMH: Agreed; PSxH: Agreed Nursing Documentation-PMH Past Medical History: No History, Except For Hx Cardiac Problems: No - sickle cell Hx Hypertension: No Hx Pacemaker: No Hx Asthma: Yes Hx COPD: No Hx Diabetes: No Hx Cancer: No Hx Gastrointestinal Problems: Yes - KIDNEY STONE, appendectomy Hx Dialysis: No Hx Neurological Problems: No Hx Cerebrovascular Accident: No Hx Seizures: No Review of Systems All Other Systems: negative except mentioned in HPI Physical Exam Vital Signs Date Time Temp Pulse Resp B/P (MAP) Pulse Ox O2 Delivery O2 Flow Rate FiO2 04/28/20 20:51 98.8 75 16 106/70 (82) 97 Room Air Sp02 EP Interpretation: reviewed, normal General Appearance: no apparent distress, alert, GCS 15, non-toxic Head: normocephalic, atraumatic Eyes: bilateral eye normal inspection ENT: hearing grossly normal, normal pharynx, no angioedema, normal voice Neck: normal inspection, full range of motion Respiratory: chest non-tender, lungs clear, normal breath sounds, no respiratory distress, no retraction, no accessory muscle use, speaking full sentences Cardiovascular #1: regular rate, rhythm, no edema Gastrointestinal: normal bowel sounds, non tender, soft, non-distended, no guarding, no rebound Rectal: deferred Musculoskeletal: normal inspection, normal range of motion, gait/station normal, non-tender Neurologic: alert, motor strength/tone normal, oriented x3, sensory intact, responsive, speech normal Psychiatric: judgement/insight normal, memory normal, mood/affect normal, no suicidal/homicidal ideation Skin: normal color Medical Decision Making Diagnostic Impression: Primary Impression: Sickle cell pain crisis ER Course This patient is well-known to [facility]. She presents for chronic pain and sickle cell pain crises. There is no evidence of a cell crises. Laboratory work-up is at her baseline and there is no significant anemia. The patient left after receiving IM Dilaudid stating she felt much better and did not wait for her paperwork. Regardless, the patient is well-appearing nontoxic and this appears to be consistent with chronic pain. She is educated that she needed to see a pain management physician. She indicated understanding intention to do so. Laboratory Tests Test 04/28/20 21:35 White Blood Count 4.2 K/UL (4.8-10.8) L Red Blood Count 3.70 M/UL (4.20-5.40) L Hemoglobin 9.9 G/DL (12.0-16.0) L Hematocrit 32.2 % (37.0-47.0) L Mean Corpuscular Volume 87 FL (80-99) Mean Corpuscular Hemoglobin 26.7 PG (27.0-31.0) L Mean Corpuscular Hemoglobin Concent 30.7 G/DL (32.0-36.0) L Red Cell Distribution Width 16.7 % (11.6-14.8) H Platelet Count 235 K/UL (150-450) Mean Platelet Volume 6.6 FL (6.5-10.1) Neutrophils (%) (Auto) 55.4 % (45.0-75.0) Lymphocytes (%) (Auto) 33.8 % (20.0-45.0) Monocytes (%) (Auto) 8.5 % (1.0-10.0) Eosinophils (%) (Auto) 1.3 % (0.0-3.0) Basophils (%) (Auto) 0.9 % (0.0-2.0) Reticulocyte Count 0.2 % (0.5-2.0) L Sodium Level 138 MMOL/L (136-145) Potassium Level 3.8 MMOL/L (3.5-5.1) Chloride Level 104 MMOL/L (98-107) Carbon Dioxide Level 25 MMOL/L (21-32) Anion Gap 9 mmol/L (5-15) Blood Urea Nitrogen 11 mg/dL (7-18) Creatinine 0.9 MG/DL (0.55-1.30) Estimated Glomerular Filtration Rate > 60 mL/min (>60) Glucose Level 92 MG/DL (74-106) Calcium Level 8.6 MG/DL (8.5-10.1) Total Bilirubin 0.2 MG/DL (0.2-1.0) Aspartate Amino Transferase (AST) 22 U/L (15-37) Alanine Aminotransferase (ALT) 7 U/L (12-78) L Alkaline Phosphatase 73 U/L (46-116) Total Protein 7.5 G/DL (6.4-8.2) Albumin 3.7 G/DL (3.4-5.0) Globulin 3.8 g/dL Albumin/Globulin Ratio 1.0 (1.0-2.7) Lipase 90 U/L (73-393) Last Vital Signs Date Time Temp Pulse Resp B/P (MAP) Pulse Ox O2 Delivery O2 Flow Rate FiO2 04/28/20 20:58 98.8 74 16 106/70 97 Room Air Status: improved Disposition: HOME, SELF-CARE Condition: Improved Referrals: NOT CHOSEN IPA/,REFERRING (PCP) Li Cerda DO Apr 28, 2020 21:45
[2020-04-28 21:47] LABS: BASOPHILS % (AUTO) 0.9 % (0.0-2.0); EOSINOPHILS % (AUTO) 1.3 % (0.0-3.0); HEMATOCRIT 32.2 % (37.0-47.0); HEMOGLOBIN 9.9 G/DL (12.0-16.0); LYMPHOCYTES % (AUTO) 33.8 % (20.0-45.0); MEAN CORPUSCULAR VOLUME 87 FL (80-99); MONOCYTES % (AUTO) 8.5 % (1.0-10.0); NEUTROPHILS % (AUTO) 55.4 % (45.0-75.0); PLATELET COUNT 235 K/UL (150-450); RED CELL DISTRIBUTION WIDTH 16.7 % (11.6-14.8); WHITE BLOOD COUNT 4.2 K/UL (4.8-10.8)
[2020-04-28 22:00] LABS: ANION GAP 9 mmol/L (5-15); BLOOD UREA NITROGEN 11 mg/dL (7-18); CALCIUM 8.6 MG/DL (8.5-10.1); CARBON DIOXIDE 25 MMOL/L (21-32); CHLORIDE 104 MMOL/L (98-107); CREATININE 0.9 MG/DL (0.55-1.30); POTASSIUM 3.8 MMOL/L (3.5-5.1); SODIUM 138 MMOL/L (136-145)
[2020-04-28 22:04] LABS: ALANINE AMINOTRANSFERASE 7 U/L (12-78); ALBUMIN 3.7 G/DL (3.4-5.0); ALKALINE PHOSPHATASE 73 U/L (46-116); ASPARTATE AMINO TRANSFERASE 22 U/L (15-37); BILIRUBIN,TOTAL 0.2 MG/DL (0.2-1.0)
[2020-04-28 22:10] VITALS: BP 117/76
--- NOTE | 2020-04-28 22:10 | NUR ---
ER DISCHARGE NOTE: Patient is cleared to be discharged per ERMD, pt is aox4, on room air, with stable vital signs. pt refused to sign DC paperwork no prescriptions given by EDMD, pt id band removed. pt is able to ambulate with steady gait. pt took all belongings.
== END 2020-04-28 22:10 | disposition home or self-care (01) ==
LOC: EMR 21:14
DX: D57.00 Hb-SS disease with crisis, unspecified (principal); Z88.8 Allergy status to other drugs, medicaments and biological substances; Z90.89 Acquired absence of other organs; Z87.442 Personal history of urinary calculi
CPT/HCPCS: 36415; 80053; 83690; 85025; 85044; 96372; 99283; J1170

== ENCOUNTER 2020-06-07 05:59 | Emergency (ER) | payer MEDICARE, OTHER ==
[~2020-06-07] VITALS: Ht 157.5 cm; Wt 61.7 kg
[2020-06-07 06:10] VITALS: BP 112/70
--- NOTE | 2020-06-07 06:23 | Emergency Room Report ---
History of Present Illness General Chief Complaint: Pain Source: Patient Present Illness HPI Disclaimer: Please note that this report is being documented using DRAGON technology. This can lead to erroneous entry secondary to incorrect interpretation by the dictating instrument. HPI: 34-year-old female history of sickle cell disease presents for evaluation of body pain. Symptoms began 3 days ago. She believes it was triggered by the cold. She reports aching and cramping in her lower back, side and legs. This typical exacerbation of her sickle cell pain. She ran on hydroxyurea 2 days ago unable to see her PMD for another 2 weeks. Has been using oral Dilaudid as prescribed. Worsening pain. Still able to ambulate. Denies chest pain, palpitations, weakness, shortness of breath, lightheadedness, vomiting, diarrhea, fever or chills. LMP was 2 days ago. Required blood transfusion 1 month ago. Denies recent illness or other changes in her health. PMH: Sickle cell PSH: Reviewed Allergies: Reviewed Social Hx: Reviewed Allergies: Coded Allergies: METOCLOPRAMIDE (Verified Allergy, Mild, Rash, 07/27/12) KETOROLAC (Verified Allergy, Unknown, 11/25/13) PROCHLORPERAZINE EDISYLATE (Verified Adverse Reaction, Intermediate, Shortness of Breath, 05/30/12) ANX PROCHLORPERAZINE MALEATE (Verified Adverse Reaction, Intermediate, Shortness of Breath, 05/30/12) ANX COVID-19 Screening Contact w/high risk pt: No Recent Travel to affected area: No Experienced COVID-19 symptoms?: No COVID-19 Testing performed CERTIFIED ART THERAPIST: No Patient History Last Menstrual Period: 05/2020 Nursing Documentation-PMH Hx Cardiac Problems: No - sickle cell Hx Hypertension: No Hx Pacemaker: No Hx Asthma: Yes Hx COPD: No Hx Diabetes: No Hx Cancer: No Hx Gastrointestinal Problems: Yes - KIDNEY STONE, appendectomy Hx Dialysis: No Hx Neurological Problems: No Hx Cerebrovascular Accident: No Hx Seizures: No Review of Systems All Other Systems: negative except mentioned in HPI Physical Exam Vital Signs Date Time Temp Pulse Resp B/P (MAP) Pulse Ox O2 Delivery O2 Flow Rate FiO2 06/07/20 06:09 98.8 86 16 116/79 (91) 96 Room Air General: Awake and alert, no acute distress HEENT: NC/AT. EOMI. Cardiovascular: RRR. S1 and S2 normal. No murmur appreciated Resp: Normal work of breathing. No cough, wheezing or crackles appreciated Abdomen: Abdomen is soft, nondistended. Nontender Skin: Intact. No abrasions, laceration or rash over the exposed skin MSK: Normal tone and bulk. Moving all extremities. No obvious deformity. Pelvis is stable. Ambulating with steady gait. Neuro: Awake and alert. Mentating appropriately. Medical Decision Making Diagnostic Impression: Primary Impression: Sickle cell pain crisis ER Course Is a 34-year-old female history of sickle cell disease requiring transfusion in the past presenting with body aches and pains. Consistent with sickle cell pain crisis per patient. She ran out of hydroxyurea 2 days ago. Patient states she is a hard stick and that she requires a PICC line if she is to receive IV fluids. She is declined IV fluids in the ED at this time stating she would rather try intramuscular injections of analgesics first and only if needed obtain IV access. Labs returned largely within normal limits. Hemoglobin today is 10.2; no indication for transfusion. Patient's feeling better after receiving analgesics. She would like to go home and follow-up with her certified nurses' aide. I have refilled her hydroxyurea. Scheduled to see her new certified nurses' aide in 2 weeks. Discussed reasons to return to ED. She understands and agrees with this treatment plan. Laboratory Tests Test 06/07/20 06:35 White Blood Count 6.4 K/UL (4.8-10.8) Red Blood Count 3.52 M/UL (4.20-5.40) L Hemoglobin 10.2 G/DL (12.0-16.0) L Hematocrit 31.0 % (37.0-47.0) L Mean Corpuscular Volume 88 FL (80-99) Mean Corpuscular Hemoglobin 28.9 PG (27.0-31.0) Mean Corpuscular Hemoglobin Concent 32.8 G/DL (32.0-36.0) Red Cell Distribution Width 18.9 % (11.6-14.8) H Platelet Count 306 K/UL (150-450) Mean Platelet Volume 6.4 FL (6.5-10.1) L Neutrophils (%) (Auto) 51.9 % (45.0-75.0) Lymphocytes (%) (Auto) 40.8 % (20.0-45.0) Monocytes (%) (Auto) 4.8 % (1.0-10.0) Eosinophils (%) (Auto) 1.5 % (0.0-3.0) Basophils (%) (Auto) 1.1 % (0.0-2.0) Reticulocyte Count 1.0 % (0.5-2.0) Prothrombin Time 11.1 SEC (9.30-11.50) Prothrombin Time INR 1.0 (0.9-1.1) Activated Partial Thromboplast Time 25 SEC (23-33) Sodium Level 140 MMOL/L (136-145) Potassium Level 3.4 MMOL/L (3.5-5.1) L Chloride Level 105 MMOL/L (98-107) Carbon Dioxide Level 26 MMOL/L (21-32) Anion Gap 9 mmol/L (5-15) Blood Urea Nitrogen 13 mg/dL (7-18) Creatinine 0.9 MG/DL (0.55-1.30) Estimated Glomerular Filtration Rate > 60 mL/min (>60) Glucose Level 113 MG/DL (74-106) H Calcium Level 8.8 MG/DL (8.5-10.1) Total Bilirubin 0.3 MG/DL (0.2-1.0) Aspartate Amino Transferase (AST) 24 U/L (15-37) Alanine Aminotransferase (ALT) 25 U/L (12-78) Alkaline Phosphatase 95 U/L (46-116) Total Protein 7.8 G/DL (6.4-8.2) Albumin 3.7 G/DL (3.4-5.0) Globulin 4.1 g/dL Albumin/Globulin Ratio 0.9 (1.0-2.7) L Last Vital Signs Date Time Temp Pulse Resp B/P (MAP) Pulse Ox O2 Delivery O2 Flow Rate FiO2 06/07/20 06:09 98.8 86 16 116/79 (91) 96 Room Air Disposition: HOME, SELF-CARE Condition: Improved Scripts Hydroxyurea* (HYDREA 500mg*) 500 Mg Capsule 500 MG PO BID, #60 CAP Prov: Kalen Umanzor MD 06/07/20 Referrals: NON PHYSICIAN (PCP) Kalen Umanzor MD Jun 07, 2020 06:23
[2020-06-07] MEDS ORDERED: DiphenhydrAMINE 50mg/ml Inj IM ONE (06:30)
[2020-06-07] MEDS ORDERED: HYDREA500 MG PO (06:53)
[2020-06-07 07:07] LABS: ANION GAP 9 mmol/L (5-15); BLOOD UREA NITROGEN 13 mg/dL (7-18); CALCIUM 8.8 MG/DL (8.5-10.1); CARBON DIOXIDE 26 MMOL/L (21-32); CHLORIDE 105 MMOL/L (98-107); CREATININE 0.9 MG/DL (0.55-1.30); POTASSIUM 3.4 MMOL/L (3.5-5.1); SODIUM 140 MMOL/L (136-145)
[2020-06-07 07:08] LABS: BASOPHILS % (AUTO) 1.1 % (0.0-2.0); EOSINOPHILS % (AUTO) 1.5 % (0.0-3.0); HEMOGLOBIN 10.2 G/DL (12.0-16.0); LYMPHOCYTES % (AUTO) 40.8 % (20.0-45.0); MEAN CORPUSCULAR VOLUME 88 FL (80-99); MONOCYTES % (AUTO) 4.8 % (1.0-10.0); NEUTROPHILS % (AUTO) 51.9 % (45.0-75.0); PLATELET COUNT 306 K/UL (150-450); RED BLOOD COUNT 3.52 M/UL (4.20-5.40); RED CELL DISTRIBUTION WIDTH 18.9 % (11.6-14.8); WHITE BLOOD COUNT 6.4 K/UL (4.8-10.8)
[2020-06-07 07:11] LABS: ALANINE AMINOTRANSFERASE 25 U/L (12-78); ALBUMIN 3.7 G/DL (3.4-5.0); ALBUMIN/GLOBULIN RATIO 0.9 (1.0-2.7); ALKALINE PHOSPHATASE 95 U/L (46-116); ASPARTATE AMINO TRANSFERASE 24 U/L (15-37); BILIRUBIN,TOTAL 0.3 MG/DL (0.2-1.0)
[2020-06-07] MEDS ORDERED: HYDROmorphone 1mg/ml Carpuject IM ONE (07:30)
[2020-06-07 07:48] VITALS: BP 124/78
== END 2020-06-07 07:48 | disposition home or self-care (01) ==
LOC: EMR 06:20
DX: D57.00 Hb-SS disease with crisis, unspecified (principal); J45.909 Unspecified asthma, uncomplicated; Z88.8 Allergy status to other drugs, medicaments and biological substances; Z87.442 Personal history of urinary calculi
CPT/HCPCS: 36415; 80053; 85025; 85044; 85610; 85730; 86850; 86900; 86901; 96372; 99284; J1170; J1200

== ENCOUNTER 2020-06-13 21:01 | Emergency (ER) | payer MEDICARE, OTHER ==
[~2020-06-13] VITALS: Ht 157.5 cm; Wt 59.0 kg
[2020-06-13 21:20] VITALS: BP 126/78
--- NOTE | 2020-06-13 21:25 | Emergency Room Report ---
History of Present Illness General Chief Complaint: Pain Source: Patient Present Illness HPI Disclaimer: Please note that this report is being documented using DRAGON technology. This can lead to erroneous entry secondary to incorrect interpretation by the dictating instrument. HPI: 34-year-old female history of sickle cell disease presents for evaluation of body pain. Symptoms began 2-3 days ago. She believes it was triggered by the use of the weather. She reports aching and cramping in her lower back, side and legs which is typical for her sickle cell pain. Patient seen at this emergency room multiple times with similar complaints. 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 Silva. Denies fever, chills, chest pain, palpitations, shortness of breath, inability to ambulate, dysuria, hematuria nausea or vomiting. Labs at last visit were within normal limits. LMP was last week. Denies recent illness or other changes in her health. 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 COVID-19 Screening: Negative COVID-19 COVID-19 Testing Source: [facility] Patient History Last Menstrual Period: 05/29/20 Now: No Nursing Documentation-PMH Past Medical History: No History, Except For Hx Cardiac Problems: No - sickle cell Hx Hypertension: No Hx Pacemaker: No Hx Asthma: Yes Hx COPD: No Hx Diabetes: No Hx Cancer: No Hx Gastrointestinal Problems: Yes - KIDNEY STONE, appendectomy Hx Dialysis: No Hx Neurological Problems: No Hx Cerebrovascular Accident: No Hx Seizures: No Review of Systems All Other Systems: negative except mentioned in HPI Physical Exam Vital Signs Date Time Temp Pulse Resp B/P (MAP) Pulse Ox O2 Delivery O2 Flow Rate FiO2 06/13/20 21:11 97.9 87 18 126/78 (94) 92 Room Air General: Awake and alert, appears mildly uncomfortable HEENT: NC/AT. EOMI. Cardiovascular: RRR. S1 and S2 normal. No murmur appreciated Resp: Normal work of breathing. No cough, wheezing or crackles appreciated Abdomen: Abdomen is soft, nondistended. Nontender Skin: Intact. No abrasions, laceration or rash over the exposed skin MSK: Normal tone and bulk. Moving all extremities. No obvious deformity. Some tenderness over the thighs and lower back. No palpable bony deformity in the lumbosacral spine. Pelvis is stable. Ambulating with a steady gait. Neuro: Awake and alert. Mentating appropriately. Medical Decision Making Diagnostic Impression: Primary Impression: Sickle cell pain crisis ER Course Is a 34-year-old female history of sickle cell disease and frequent pain crisis presents for evaluation of body pain. Consistent with prior sickle cell pain crises. Labs on 06/07 showed hemoglobin of 10.3. Patient otherwise denies fatigue, palpitations, other symptoms. She states she is a very difficult stick and almost always requires PICC line to administer medications or for blood draws. The patient is declining labs at this time due to her poor IV access. Treated with IM and oral medications. Pain improved. She is requesting a prescription for Zofran. 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 Instructed to return with new or worsening symptoms. She understands and agrees with the treatment plan. Last Vital Signs Date Time Temp Pulse Resp B/P (MAP) Pulse Ox O2 Delivery O2 Flow Rate FiO2 06/13/20 21:20 97.9 18 126/78 92 Room Air 06/13/20 21:11 87 Disposition: HOME, SELF-CARE Condition: Improved Scripts Ondansetron Odt* (ZOFRAN ODT*) 4 Mg Tab.rapdis 4 MG BC EVERY 6 HOURS PRN for Nausea & Vomiting, #20 TAB 0 Refills Prov: Kalen Umanzor MD 06/13/20 Kalen Umanzor MD Jun 13, 2020 21:25
[2020-06-13] MEDS ORDERED: DiphenhydrAMINE 50mg/ml Inj IM ONE (21:30)
[2020-06-13] MEDS ORDERED: ONDANSETRON ODT4 MG BC (22:09)
[2020-06-13 22:22] VITALS: BP 126/78
== END 2020-06-13 22:22 | disposition home or self-care (01) ==
LOC: EMR 21:31
DX: D57.00 Hb-SS disease with crisis, unspecified (principal); J45.909 Unspecified asthma, uncomplicated; Z87.442 Personal history of urinary calculi; Z88.5 Allergy status to narcotic agent; Z88.8 Allergy status to other drugs, medicaments and biological substances; Z79.899 Other long term (current) drug therapy
CPT/HCPCS: 96372; 99283; J1170; J1200

== ENCOUNTER 2020-06-27 18:29 | Emergency (ER) | payer MEDICARE, OTHER ==
[~2020-06-27] VITALS: Ht 157.5 cm; Wt 62.1 kg
[2020-06-27 19:03] VITALS: BP 122/71
[2020-06-27] MEDS ORDERED: HYDROmorphone 1mg/ml Carpuject IM ONE ×2 (19:15→21:15)
--- NOTE | 2020-06-27 19:19 | Emergency Room Report ---
History of Present Illness General Chief Complaint: Pain Source: Patient Present Illness HPI Disclaimer: Please note that this report is being documented using DRAGON technology. This can lead to erroneous entry secondary to incorrect interpretation by the dictating instrument. HPI: 34-year-old female history of sickle cell disease presents for evaluation of body pain. Symptoms began 3 days ago. She reports aching and cramping in her lower back, side and legs which is typical for her sickle cell pain however worsening pain in the hips. Patient seen at this emergency room multiple times with similar complaints. Recently saw her safety patrol officer, Dr. Silva, who doubled her hydroxyurea. Denies fever, chills, chest pain, palpitations, shortness of breath, dysuria, hematuria or vomiting. Denies recent illness or other changes in her health. PMH: Sickle cell PSH: Reviewed Allergies: Reviewed Social Hx: Reviewed Allergies: Coded Allergies: METOCLOPRAMIDE (Verified Allergy, Mild, Rash, 07/27/12) KETOROLAC (Verified Allergy, Unknown, 11/25/13) MORPHINE (Verified Allergy, Unknown, 06/13/20) PROCHLORPERAZINE EDISYLATE (Verified Adverse Reaction, Intermediate, Shortness of Breath, 05/30/12) ANX PROCHLORPERAZINE MALEATE (Verified Adverse Reaction, Intermediate, Shortness of Breath, 05/30/12) ANX COVID-19 Screening Contact w/high risk pt: No Recent Travel to affected area: No Experienced COVID-19 symptoms?: No COVID-19 Testing performed MIDWIFE PRACTITIONER: No Patient History Last Menstrual Period: 05/31/2020 Nursing Documentation-PMH Hx Cardiac Problems: No - sickle cell Hx Hypertension: No Hx Pacemaker: No Hx Asthma: Yes Hx COPD: No Hx Diabetes: No Hx Cancer: No Hx Gastrointestinal Problems: Yes - KIDNEY STONE, appendectomy Hx Dialysis: No Hx Neurological Problems: No Hx Cerebrovascular Accident: No Hx Seizures: No Review of Systems All Other Systems: negative except mentioned in HPI Physical Exam Vital Signs Date Time Temp Pulse Resp B/P (MAP) Pulse Ox O2 Delivery O2 Flow Rate FiO2 06/27/20 18:39 98.1 90 18 122/71 (88) 97 Room Air General: Awake and alert, no acute distress HEENT: NC/AT. EOMI. Cardiovascular: RRR. S1 and S2 normal. No murmur appreciated Resp: Normal work of breathing. No cough, wheezing or crackles appreciated Abdomen: Abdomen is soft, nondistended. Nontender Skin: Intact. No abrasions, laceration or rash over the exposed skin MSK: Normal tone and bulk. Moving all extremities. Tenderness palpation in the pelvis without deformity. Ambulating with steady gait Neuro: Awake and alert. Mentating appropriately. Medical Decision Making Diagnostic Impression: Primary Impression: Chronic pain Additional Impression: UTI (urinary tract infection) ER Course 34-year-old female history of sickle cell disease presents complaining of body pain. Concern for acute sickle scribe is broad labs and x-ray of the pelvis were obtained to evaluate for avascular necrosis. No obvious deformity or sign of avascular necrosis on AP hip and pelvis views. Labs including reticulocyte count returned within normal limits. There is concern for acute cystitis based on urine sample. Will treat with Macrobid. Patient received IM antibiotics as well as oral Benadryl and Zofran. Symptoms improved. Suspect her chronic pain exacerbated by acute urinary tract infection. Stable for outpatient follow-up. Instructed to return with new or worsening symptoms. Laboratory Tests Test 06/27/20 20:00 White Blood Count 5.2 K/UL (4.8-10.8) Red Blood Count 3.19 M/UL (4.20-5.40) L Hemoglobin 9.1 G/DL (12.0-16.0) L Hematocrit 29.4 % (37.0-47.0) L Mean Corpuscular Volume 92 FL (80-99) Mean Corpuscular Hemoglobin 28.6 PG (27.0-31.0) Mean Corpuscular Hemoglobin Concent 31.0 G/DL (32.0-36.0) L Red Cell Distribution Width 17.3 % (11.6-14.8) H Platelet Count 217 K/UL (150-450) Mean Platelet Volume 6.5 FL (6.5-10.1) Neutrophils (%) (Auto) 51.1 % (45.0-75.0) Lymphocytes (%) (Auto) 40.8 % (20.0-45.0) Monocytes (%) (Auto) 4.4 % (1.0-10.0) Eosinophils (%) (Auto) 2.5 % (0.0-3.0) Basophils (%) (Auto) 1.2 % (0.0-2.0) Reticulocyte Count 0.8 % (0.5-2.0) Urine Color Pale yellow Urine Appearance Slightly cloudy Urine pH 6 (4.5-8.0) Urine Specific [place] 1.015 (1.005-1.035) Urine Protein 1+ (NEGATIVE) H Urine Glucose (UA) Negative (NEGATIVE) Urine Ketones Negative (NEGATIVE) Urine Blood Negative (NEGATIVE) Urine Nitrite Positive (NEGATIVE) H Urine Bilirubin Negative (NEGATIVE) Urine Urobilinogen Normal MG/DL (0.0-1.0) Urine Leukocyte Esterase Negative (NEGATIVE) Urine RBC 0 /HPF (0 - 2) Urine WBC 2-4 /HPF (0 - 2) Urine Squamous Epithelial Cells Many /LPF (NONE/OCC) H Urine Bacteria Many /HPF (NONE) H Urine HCG, Qualitative Negative (NEGATIVE) Sodium Level 139 MMOL/L (136-145) Potassium Level 3.5 MMOL/L (3.5-5.1) Chloride Level 105 MMOL/L (98-107) Carbon Dioxide Level 30 MMOL/L (21-32) Anion Gap 4 mmol/L (5-15) L Blood Urea Nitrogen 11 mg/dL (7-18) Creatinine 1.0 MG/DL (0.55-1.30) Estimated Glomerular Filtration Rate > 60 mL/min (>60) Glucose Level 87 MG/DL (74-106) Calcium Level 8.7 MG/DL (8.5-10.1) Total Bilirubin 0.2 MG/DL (0.2-1.0) Aspartate Amino Transferase (AST) 31 U/L (15-37) Alanine Aminotransferase (ALT) 19 U/L (12-78) Alkaline Phosphatase 84 U/L (46-116) Total Protein 7.2 G/DL (6.4-8.2) Albumin 3.5 G/DL (3.4-5.0) Globulin 3.7 g/dL Albumin/Globulin Ratio 0.9 (1.0-2.7) L Other X-Ray Diagnostic Results Other X-Ray Diagnostic Results : X-Ray ordered: Hip and pelvis # of Views/Limited Vs Complete: Limited Indication: Pain EP Interpretation: Yes Interpretation: no dislocation, no soft tissue swelling, no fractures Impression: No acute disease Electronically Signed by: Electronically signed by Dr. Kalen Umanzor MD Last Vital Signs Date Time Temp Pulse Resp B/P (MAP) Pulse Ox O2 Delivery O2 Flow Rate FiO2 06/27/20 19:03 98.1 80 18 122/71 97 Room Air Disposition: HOME, SELF-CARE Condition: Stable Scripts Nitrofurantoin Monohyd/M-Cryst* (MACROBID 100 MG*) 100 Mg Capsule 100 MG ORAL EVERY 12 HOURS for 5 Days, #10 CAP Prov: Kalen Umanzor MD 06/27/20 Kalen Umanzor MD Jun 27, 2020 19:19
[2020-06-27 20:07] LABS: BASOPHILS % (AUTO) 1.2 % (0.0-2.0); EOSINOPHILS % (AUTO) 2.5 % (0.0-3.0); HEMATOCRIT 29.4 % (37.0-47.0); HEMOGLOBIN 9.1 G/DL (12.0-16.0); LYMPHOCYTES % (AUTO) 40.8 % (20.0-45.0); MEAN CORPUSCULAR VOLUME 92 FL (80-99); MONOCYTES % (AUTO) 4.4 % (1.0-10.0); NEUTROPHILS % (AUTO) 51.1 % (45.0-75.0); PLATELET COUNT 217 K/UL (150-450); RED BLOOD COUNT 3.19 M/UL (4.20-5.40); RED CELL DISTRIBUTION WIDTH 17.3 % (11.6-14.8); WHITE BLOOD COUNT 5.2 K/UL (4.8-10.8)
[2020-06-27 20:16] LABS: BILIRUBIN, URINE NEGATIVE (NEGATIVE); COLOR,URINE PALE YELLOW; GLUCOSE, URINE (UA) NEGATIVE (NEGATIVE); KETONES,URINE NEGATIVE (NEGATIVE); LEUKOCYTE ESTERASE ,URINE NEGATIVE (NEGATIVE); NITRITE,URINE POSITIVE (NEGATIVE); PH,URINE 6 (4.5-8.0); PROTEIN,URINE 1+ (NEGATIVE); UROBILINOGEN,URINE NORMAL MG/DL (0.0-1.0)
[2020-06-27 20:17] LABS: APPEARANCE,URINE SLIGHTLY CLOUDY
[2020-06-27 20:20] LABS: ANION GAP 4 mmol/L (5-15); BLOOD UREA NITROGEN 11 mg/dL (7-18); CALCIUM 8.7 MG/DL (8.5-10.1); CARBON DIOXIDE 30 MMOL/L (21-32); CHLORIDE 105 MMOL/L (98-107); POTASSIUM 3.5 MMOL/L (3.5-5.1); SODIUM 139 MMOL/L (136-145)
[2020-06-27 20:25] LABS: ALANINE AMINOTRANSFERASE 19 U/L (12-78); ALBUMIN 3.5 G/DL (3.4-5.0); ALBUMIN/GLOBULIN RATIO 0.9 (1.0-2.7); ALKALINE PHOSPHATASE 84 U/L (46-116); ASPARTATE AMINO TRANSFERASE 31 U/L (15-37); BILIRUBIN,TOTAL 0.2 MG/DL (0.2-1.0)
[2020-06-27] MEDS ORDERED: NITROFURANTOIN100 M2 ORAL (20:52)
[2020-06-27] MEDS ORDERED: HYDROmorphone 1mg/ml Carpuject ONE (21:11)
--- NOTE | 2020-06-27 21:30 | Diagnostic Imaging Report ---
EXAM: XR Bilateral Hips With Pelvis When Performed, 2 Views CLINICAL HISTORY: PAIN TECHNIQUE: Frontal view of the bilateral hips with pelvis when performed. COMPARISON: No previous studies. FINDINGS: Bones/joints: Bony pelvis is unremarkable. Hip joints are intact The superior and inferior pubic rami are unremarkable per Sacrum neck joints are intact and Lower lumbar spine is within normal limits. No acute fracture. No dislocation. Soft tissues: Unremarkable. Vasculature: Right pelvic phleboliths. IMPRESSION: No acute fracture or dislocation.
[2020-06-27 21:37] VITALS: BP 118/84
== END 2020-06-27 21:30 | disposition home or self-care (01) ==
LOC: EMR 19:24
DX: G89.29 Other chronic pain (principal); D57.1 Sickle-cell disease without crisis; N39.0 Urinary tract infection, site not specified; J45.909 Unspecified asthma, uncomplicated; Z88.5 Allergy status to narcotic agent; Z88.8 Allergy status to other drugs, medicaments and biological substances
CPT/HCPCS: 36415; 73521; 80053; 81003; 81025; 85025; 85044; 87086; 96372; 99284; J1170

== ENCOUNTER 2020-07-06 16:24 | Emergency (ER) | payer MEDICARE, OTHER ==
[~2020-07-06] VITALS: Ht 157.5 cm; Wt 59.9 kg
[~2020-07-06 16:24] MED LIST changes: +NITROFURANTOIN100 M2 ORAL
[2020-07-06] MEDS ORDERED: Hydromorphone 0.5mg/0.5ml inj IVP ONE (16:45)
[2020-07-06 16:55] VITALS: BP 126/82
--- NOTE | 2020-07-06 16:55 | NUR ---
ED Nurse Note: Pt walked into ED for general body pain due to sicke cell crisis 01/02. Pt is alert and orientedx4, ambulatory. Pt is refusing IVm ERMD aware. Blood drawn by butterfly and sent to lab. Pt set up on monitor. Pt was seen recently in ED for same issue.
[2020-07-06] MEDS ORDERED: HYDROmorphone 1mg/ml Carpuject IM ONE ×2 (17:00→19:15)
--- NOTE | 2020-07-06 17:24 | Emergency Room Report ---
History of Present Illness General Chief Complaint: Pain Source: Patient Present Illness HPI 34-year-old -Polish female with past medical history of sickle cell disease presents with acute pain crisis. Patient states that this is similar to her previous sickle cell crisis. She is currently on Dilaudid, hydroxyurea, folic acid at home. She was recently seen in the emergency department on 06/27/2020 for similar issue. She states that her pain is profuse throughout the body but primarily on the right shoulder and bilateral hips. Denies fevers, chills, hemoptysis, nausea, vomiting, diarrhea, melena, hematochezia, midline axial spine pain, headache, slurred speech, vision changes, neck pain or any other symptoms. Pain is atraumatic. It is identical to her previous sickle cell crisis. Denies saddle anesthesia, urinary retention, bowel or bladder incontinence. Patient has an active heme-onc specialist The patient's symptoms were gradual onset, severity was moderate, duration since 1 day. Quality: Aching Past medical history: sickle cell disease, PTSD Past surgical history: denies Smoking: Denies Alcohol use: Denies Drug use: Denies Review of systems: CONST: No fevers or chills, No night sweats PULMONARY: No productive cough, No shortness of breath CARDIAC: No chest pain, No palpitations GI: No vomiting, No diarrhea , No melena_or_BRBPR : No dysuria, No hematuria, No discharge NEURO: No new_focal_weakness_or_numbness, No confusion, No vision changes 14 point Review of Systems is otherwise negative except per HPI Physical Exam: GENERAL: Awake_alert_ nontoxic, no acute distress Spo2 97% on RA -normal EYES: Extraocular muscles are intact. Conjunctivae clear. Lids without swelling ENT: External nose and ear normal_in_appearance. Oropharynx clear. Head_atraumatic, Moist_oral_mucosa NECK: No JVD. No meningismus. No thyromegaly. Supple. Trachea midline No midline cervical, thoracic, lumbar spinal step-offs or deformity RESP: Normal respiratory effort. Symmetric rise. No stridor. Clear_to_auscultation_No_rales_No_wheezes CARDIAC: Regular rate and regular rhytm. No_significant pedal edema. ABDOMEN: Soft. Nondistended. Nontender_No_rebound_or_guarding. MSK: Normal muscle tone, without rigidity. Extremities without asymmetric deformity or swelling. FROM R shoulder. No snuffbox TTP. No midline cervical, thoracic, lumbar spinal tenderness to palpation or step-off SKIN: Warm and dry. No visible cyanosis or pallor NEUROLOGIC: Alert, oriented x3. Motor_and_sensation_grossly_intact. No truncal ataxia. Gait_normal Psych: Normal mood and affect, normal judgment and insight - COORDINATION OF CARE Case was discussed with: Patient Any labs and imaging that were ordered were interpreted as part of the medical decision making: Medical Decision Making/Plan: DDx: sickle cell crisis vs chronic pain vs musculoskeletal Patient is neurologically intact, afebrile. CBC is unremarkable. Reticulocyte count is within normal limits. Haptoglobin is within normal limits. LDH is within normal limits. Do not suspect acute pain crisis, aplastic crisis, osteo or ACS secondary to sickle cell. More likely chronic pain. No signs of infection at this time. X-ray shows no pneumonia, no osteomyelitis, abdominal exam is nontender. Nothing to suggest splenic sequestration at this time. Patient is able to tolerate PO upon discharge. Pain was controlled in the emergency department with Dilaudid IM. Patient refused IV fluids. She has multiple previous visits for similar issue. I did do a CURES checkup Patient is noted to have multiple prescription for narcotic pain meds. been followed by several chronic pain specialist including Dr. Power, Dr Davis, Dr Bansal, Dr Pierce, Dr Goldman. Patient has follow-up with hematology/sports medicine specialist Dr. Silva on 07/23/2020. Pertinent results reviewed with the patient. I educated the patient on the current treatment plan including the risks, benefits, and alternatives. I also discussed the extent and limitations of the current evaluation. The patient expressed understanding and agreement with plan. I recommended PMD follow-up within 1-2 days. Also advised that the patient return to the Emergency Department as soon as possible if they experience any new, persistent, or worsening symptoms. 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 - 07/02/19 COVID-19 Screening: Negative COVID-19 COVID-19 Testing Source: drive thru Patient History Last Menstrual Period: 06/28/20 Nursing Documentation-PMH Hx Cardiac Problems: No - sickle cell Hx Hypertension: No Hx Pacemaker: No Hx Asthma: Yes Hx COPD: No Hx Diabetes: No Hx Cancer: No Hx Gastrointestinal Problems: Yes - KIDNEY STONE, appendectomy Hx Dialysis: No Hx Neurological Problems: No Hx Cerebrovascular Accident: No Hx Seizures: No Physical Exam Vital Signs Date Time Temp Pulse Resp B/P (MAP) Pulse Ox O2 Delivery O2 Flow Rate FiO2 07/06/20 16:26 99.0 82 16 120/84 (96) 97 Room Air Sp02 EP Interpretation: reviewed, normal Medical Decision Making Diagnostic Impression: Primary Impression: Chronic pain Additional Impressions: Generalized pain Sickle cell trait Anemia Opioid dependence Drug-seeking behavior EKG Diagnostic Results PA Scribe Kwadwo 12-lead EKG (interpreted by me) Time: 1712 Indication: Rhythm analysis Tracing visualized and Interpreted by me. Rhythm: Normal sinus rhythm Rate: 76 bpm QTc: 434 Morphology: No_significant_ST_elevations_or_depressions, No STEMI Impression: Normal_sinus_rhythm_without_significant_abnormality Rhythm Strip Diag. Results Rhythm Strip Time: 20:00 EP Interpretation: yes Rate: 74 Rhythm: NSR, no PVC's, no ectopy Chest X-Ray Diagnostic Results Chest X-Ray Diagnostic Results : NICOLE Diaziboscar Burkett Chest X-Ray: Views: 1 view(s) Indication: Right shoulder pain Findings: Normal heart size. Mediastinum normal. No infiltrate. Impression: NAD The X-ray(s) were independently viewed and interpreted contemporaneously Electronically signed by Irma marvin DO R Shoulder X-ray: Views: 4 view(s) No fracture. Normal alignment. Soft tissues normal. Joint spaces normal. Indication: Pain Impression: no acute disease The X-ray(s) were independently viewed and interpreted contemporaneously - Electronically signed by Irma marvin DO Bilateral Hip X-ray: Views: 1 view(s) No fracture. Normal alignment. Soft tissues normal. Joint spaces normal. Indication: Pain Impression: no acute disease The X-ray(s) were independently viewed and interpreted contemporaneously - Electronically signed by Irma marvin DO Reevaluation Time: 17:24 Last Vital Signs Date Time Temp Pulse Resp B/P (MAP) Pulse Ox O2 Delivery O2 Flow Rate FiO2 07/06/20 16:26 99.0 82 16 120/84 (96) 97 Room Air Status: improved Disposition: HOME, SELF-CARE Admit Decision Time: 20:00 Condition: Stable Scripts Ondansetron Odt* (ZOFRAN ODT*) 4 Mg Tab.rapdis 4 MG BC EVERY 8 HOURS, #10 TAB 0 Refills Prov: Irma Taylor D.O. 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 Follow up with your Heme Onc Specialist Dr Silva 07/13 as scheduled. Continue hydroxyurea and folic acid. Do not take narcotics and drive or combine with alcohol as it is sedating Follow-up with your doctor sooner if your condition requires a more timely clinical reevaluation. Return to the emergency department immediately if you feel that your condition is worsening or if you have any new or concerning symptoms. Review your discharge instructions and take any prescriptions given as instructed. [facility] PROVIDES FREE OR LOW-COST HEALTH SERVICES TO PEOPLE WHO CAN SHOW PROOF THAT THEY LIVE IN [facility]. TO FIND MORE CLINICS PARTNERED WITH THE [facility] TO PROVIDE SERVICE, PLEASE CALL . Irma Taylor D.O. Jul 06, 2020 17:24
[2020-07-06] MEDS ORDERED: ONDANSETRON ODT4 MG BC (17:37)
[2020-07-06 18:08] LABS: BASOPHILS % (AUTO) 1.5 % (0.0-2.0); EOSINOPHILS % (AUTO) 1.4 % (0.0-3.0); HEMATOCRIT 30.9 % (37.0-47.0); HEMOGLOBIN 9.5 G/DL (12.0-16.0); LYMPHOCYTES % (AUTO) 45.8 % (20.0-45.0); MEAN CORPUSCULAR VOLUME 93 FL (80-99); MONOCYTES % (AUTO) 4.9 % (1.0-10.0); NEUTROPHILS % (AUTO) 46.5 % (45.0-75.0); PLATELET COUNT 266 K/UL (150-450); RED BLOOD COUNT 3.33 M/UL (4.20-5.40); RED CELL DISTRIBUTION WIDTH 15.9 % (11.6-14.8); WHITE BLOOD COUNT 4.5 K/UL (4.8-10.8)
--- NOTE | 2020-07-06 18:10 | NUR ---
ED Nurse Note: Pt states unable to urinate to provide specimen yet. ERMD aware.
[2020-07-06 18:13] LABS: ANION GAP 9 mmol/L (5-15); BLOOD UREA NITROGEN 11 mg/dL (7-18); CARBON DIOXIDE 26 MMOL/L (21-32); CHLORIDE 108 MMOL/L (98-107); CREATININE 0.8 MG/DL (0.55-1.30); POTASSIUM 3.5 MMOL/L (3.5-5.1); SODIUM 143 MMOL/L (136-145)
[2020-07-06 18:18] LABS: ALANINE AMINOTRANSFERASE 15 U/L (12-78); ALBUMIN 3.1 G/DL (3.4-5.0); ALBUMIN/GLOBULIN RATIO 0.9 (1.0-2.7); ALKALINE PHOSPHATASE 82 U/L (46-116); ASPARTATE AMINO TRANSFERASE 21 U/L (15-37); BILIRUBIN,TOTAL 0.2 MG/DL (0.2-1.0)
[2020-07-06 19:10] VITALS: BP 131/76
--- NOTE | 2020-07-06 19:55 | NUR ---
ER DISCHARGE NOTE: Patient is cleared to be discharged per ERMD, pt is aox4, on room air, with stable vital signs. pt was given dc and prescription instructions, pt was able to verbalize understanding, pt id band and iv site removed without complications. pt is able to ambulate with steady gait. pt took all belongings.
[2020-07-06 20:00] VITALS: BP 131/76
--- NOTE | 2020-07-07 08:38 | Diagnostic Imaging Report ---
Indication: Right shoulder pain Technique: 3 views of the right shoulder Comparison: none Findings: No acute fracture. No dislocation. Joint spaces are preserved Impression: Negative
--- NOTE | 2020-07-07 08:39 | Diagnostic Imaging Report ---
Indication: Pelvic pain Technique: One view of the pelvis Comparison: none Findings: No acute fracture. No dislocation. Joint spaces are preserved. Impression: Negative
--- NOTE | 2020-07-07 08:43 | Diagnostic Imaging Report ---
Indication: Chest pain Technique: One view of the chest Comparison: none Findings: Lungs and pleural spaces are clear. Heart size is normal. Impression: No acute process
--- NOTE | 2020-07-07 13:06 | Cardiology Report ---
APPROVED REPORT EKG Measurement Heart [id number] <Conclusion> Sinus rhythm with 1st degree AV block Otherwise normal ECG
== END 2020-07-06 20:01 | disposition home or self-care (01) ==
LOC: EMR 17:00
DX: D57.00 Hb-SS disease with crisis, unspecified (principal); J45.909 Unspecified asthma, uncomplicated; G89.29 Other chronic pain; D64.9 Anemia, unspecified; F11.20 Opioid dependence, uncomplicated; Z76.5 Malingerer [conscious simulation]; Z88.8 Allergy status to other drugs, medicaments and biological substances; Z88.5 Allergy status to narcotic agent
CPT/HCPCS: 36415; 71045; 72170; 80053; 83010; 83615; 83690; 84484; 84702; 85025; 85044; 85610; 85730; 86850; 86900; 86901; 93005; 96372; 99284

== ENCOUNTER 2020-07-08 01:14 | Emergency (ER) | payer MEDICARE, OTHER ==
[~2020-07-08] VITALS: Ht 157.5 cm; Wt 65.8 kg
--- NOTE | 2020-07-08 01:35 | NUR ---
ED Nurse Note: pt tolerates lab draw well. no iv site per md.
--- NOTE | 2020-07-08 01:44 | Emergency Room Report ---
History of Present Illness General Chief Complaint: Pain Source: Patient, Medical Record Present Illness HPI The patient presents with 1 hour of substernal chest pain radiating towards her back. She was at rest laying down when this began. The patient rates the pain 9/10 and states it is aching and constant. She tried taking [place] and then 4 mg of Dilaudid before coming to the emergency department. She does state that she has had reflux in the past. The pain also radiates down her back into her bilateral hips consistent with when her sickle disease becomes active. She denies fevers or chills. There is a nonproductive cough. She is moving her bowels without any change. There is no dysuria. Her last menstrual cycle was June 28. Was normal for her. She denies any rashes or headache. Patient was seen July 06. She had hip and shoulder pain. She was evaluated for possible sickle cell crisis although she has a history only of sickle trait. She was treated with a milligram and a half of Dilaudid IM and oral medications. Labs were unremarkable as well as shoulder x-ray. The patient carries a diagnosis of opiate dependence and drug-seeking behavior. She denies any drug use however there is a smell of marijuana on her clothing. She states it is because her uncle was smoking marijuana in the car coming in to the emergency department. Patient states she had Covid and early April. A week ago she had a negative test. Allergies: Coded Allergies: METOCLOPRAMIDE (Verified Allergy, Mild, Rash, 07/27/12) KETOROLAC (Verified Allergy, Unknown, 11/25/13) MORPHINE (Verified Allergy, Unknown, 06/13/20) PROCHLORPERAZINE EDISYLATE (Verified Adverse Reaction, Intermediate, Shortness of Breath, 05/30/12) ANX PROCHLORPERAZINE MALEATE (Verified Adverse Reaction, Intermediate, Shortness of Breath, 05/30/12) ANX COVID-19 Screening Contact w/high risk pt: No Recent Travel to affected area: No Experienced COVID-19 symptoms?: No COVID-19 Testing performed GLASS CALIBRATOR: No Patient History Past Medical History: see triage record, other - Sickle trait Social History: Denies: smoking, alcohol use, drug use Social History Narrative brought by Aunt Last Menstrual Period: 06/28/20 Now: No Reviewed Nursing Documentation: PMH: Agreed; PSxH: Agreed Nursing Documentation-PMH Past Medical History: No History, Except For Hx Cardiac Problems: No - sickle cell Hx Hypertension: No Hx Pacemaker: No Hx Asthma: Yes Hx COPD: No Hx Diabetes: No Hx Cancer: No Hx Gastrointestinal Problems: Yes - KIDNEY STONE, appendectomy Hx Dialysis: No Hx Neurological Problems: No Hx Cerebrovascular Accident: No Hx Seizures: No Review of Systems All Other Systems: negative except mentioned in HPI Physical Exam Vital Signs Date Time Temp Pulse Resp B/P (MAP) Pulse Ox O2 Delivery O2 Flow Rate FiO2 07/08/20 01:18 98.4 79 26 112/83 (93) 97 Room Air Sp02 EP Interpretation: reviewed, normal General Appearance: well appearing, no apparent distress - However in pain, GCS 15 Head: normocephalic Eyes: bilateral eye normal inspection, bilateral eye PERRL, bilateral eye EOMI ENT: other - Wearing a mask Neck: full range of motion, supple Respiratory: chest non-tender, lungs clear, normal breath sounds Cardiovascular #1: regular rate, rhythm Cardiovascular #2: 2+ radial (R) Gastrointestinal: normal inspection, normal bowel sounds, non tender Genitourinary: no CVA tenderness Musculoskeletal: back normal, normal range of motion, no calf tenderness, gai t/station normal Neurologic: alert, oriented x3, grossly normal Psychiatric: mood/affect normal Skin: no rash, normal color, warm/dry Medical Decision Making Diagnostic Impression: Primary Impression: Chest pain Qualified Codes: R07.9 - Chest pain, unspecified Additional Impression: Sickle cell trait ER Course Patient with history of sickle trait presents with chest pain. Differential includes acute coronary syndrome, reflux esophagitis, pancreatitis, pulmonary embolus, pneumothorax, acute sickle chest, drug-seeking behavior amongst others. The fact she has sickle trait makes the latter less likely. Also based on vital signs pulmonary embolus is extremely unlikely. Patient evaluated with EKG, chest x-ray and labs. Patient declines IV at this time. Patient will be given IM Dilaudid, oral Zofran and Benadryl along with Pepcid. EKG normal sinus rhythm no acute injury. Chest x-ray no infiltrates. Labs with normal white count and minimal anemia. Patient improved with treatment however still complaining about pain. She is pressuring us to discharge her because her ride is needing to go to work. Discussed results with patient. The patient has not provided urine. Percocet given orally. Discussed outpatient observation with patient. Discussed the need for return if the pain is increased. Patient has an appointment with her own physician Today. The patient was provided labs, EKG and chest x-ray to take to her physician. No apparent medical emergency at this time. Patient improved and stable for outpatient observation and treatment. Last Vital Signs Date Time Temp Pulse Resp B/P (MAP) Pulse Ox O2 Delivery O2 Flow Rate FiO2 07/08/20 03:26 72 20 110/78 98 Room Air 07/08/20 01:18 98.4 EKG Diagnostic Results Rate: normal Rhythm: NSR ST Segments: no acute changes Rhythm Strip Diag. Results EP Interpretation: yes Rhythm: NSR, no PVC's, no ectopy Chest X-Ray Diagnostic Results Chest X-Ray Diagnostic Results : Chest X-Ray Ordered: Yes # of Views/Limited/Complete: 1 View Indication: Chest Pain EP Interpretation: Yes Last Vital Signs Date Time Temp Pulse Resp B/P (MAP) Pulse Ox O2 Delivery O2 Flow Rate FiO2 07/08/20 03:26 72 20 110/78 98 Room Air 07/08/20 01:18 98.4 Status: improved Disposition: HOME, SELF-CARE Condition: Improved Referrals: NON PHYSICIAN (PCP) Romeo Parsons MD Jul 08, 2020 01:44
[2020-07-08] MEDS ORDERED: HYDROmorphone 1mg/ml Carpuject IM ONE (01:45)
--- NOTE | 2020-07-08 01:45 | NUR ---
ED Nurse Note: pt arrives from home with generalized body pain and cp started today. recent ed visit for same. no vomiting/dyspnea. amb steady gait a/ox4. md aware of ecg. pt denies recent covid exposure. pt relates unable to void at this time.
[2020-07-08 01:58] LABS: EOSINOPHILS % (AUTO) 1.6 % (0.0-3.0); HEMATOCRIT 29.4 % (37.0-47.0); HEMOGLOBIN 9.3 G/DL (12.0-16.0); LYMPHOCYTES % (AUTO) 32.6 % (20.0-45.0); MEAN CORPUSCULAR VOLUME 89 FL (80-99); MONOCYTES % (AUTO) 6.1 % (1.0-10.0); NEUTROPHILS % (AUTO) 58.8 % (45.0-75.0); PLATELET COUNT 323 K/UL (150-450); RED BLOOD COUNT 3.29 M/UL (4.20-5.40); RED CELL DISTRIBUTION WIDTH 15.8 % (11.6-14.8); WHITE BLOOD COUNT 5.5 K/UL (4.8-10.8)
[2020-07-08 02:09] LABS: ANION GAP 8 mmol/L (5-15); BLOOD UREA NITROGEN 13 mg/dL (7-18); CARBON DIOXIDE 29 MMOL/L (21-32); CHLORIDE 107 MMOL/L (98-107); CREATININE 0.9 MG/DL (0.55-1.30); POTASSIUM 3.4 MMOL/L (3.5-5.1); SODIUM 143 MMOL/L (136-145)
[2020-07-08 02:15] LABS: ALANINE AMINOTRANSFERASE 13 U/L (12-78); ALBUMIN 3.5 G/DL (3.4-5.0); ALKALINE PHOSPHATASE 95 U/L (46-116); ASPARTATE AMINO TRANSFERASE 26 U/L (15-37); BILIRUBIN,TOTAL 0.2 MG/DL (0.2-1.0)
--- NOTE | 2020-07-08 02:45 | NUR ---
ED Nurse Note: pcxr being done pt with neg preg test on 07-06.
--- NOTE | 2020-07-08 03:21 | NUR ---
ED Nurse Note: Pt cleared by health care Provider for discharge. DC instructions/prescription was given and explained to pt and verbalized understanding of teachings. All medical devices such as ID band removed. Pt is AAO x4, ambulatory and left with all personal belongings. pt given copies of labs, cxr and ecg to bring to her pmd. amb steady gait out of ed. a/ox4 family driving pt home
[2020-07-08 03:26] VITALS: BP 110/78
--- NOTE | 2020-07-08 13:08 | Diagnostic Imaging Report ---
Indication: Chest pain Technique: XRAY Chest 1v Comparison: 07/06/2020 Findings: Heart size and mediastinal contours are stable. There is no focal airspace consolidation, pneumothorax or pleural effusion. Osseous structures demonstrate no acute abnormality. Impression: No radiographic evidence of acute cardiopulmonary disease.
== END 2020-07-08 03:29 | disposition home or self-care (01) ==
LOC: EMR 01:24
DX: R07.9 Chest pain, unspecified (principal); D57.3 Sickle-cell trait; J45.909 Unspecified asthma, uncomplicated; Z88.5 Allergy status to narcotic agent; Z88.8 Allergy status to other drugs, medicaments and biological substances
CPT/HCPCS: 36415; 71045; 80053; 83690; 84484; 85025; 85044; 85610; 85730; 93005; 96372; 99283; J1170

== ENCOUNTER 2020-07-16 17:21 | Emergency (ER) | payer MEDICARE, OTHER ==
[~2020-07-16] VITALS: Ht 157.5 cm; Wt 62.1 kg
[2020-07-16 17:45] VITALS: BP 144/76
--- NOTE | 2020-07-16 17:55 | NUR ---
ED Nurse Note: Patient from home and walked in due to generalized body pain with N/V x 4 days. Also reports blood on her vomit x1. Pt has hx of sickle cell. patient is AAO x4, ambulatory with non labored breathing.
[2020-07-16] MEDS ORDERED: DiphenhydrAMINE 50mg/ml Inj IM ONE (18:00)
[2020-07-16] MEDS ORDERED: Ondansetron ODT 8mg tab ORAL ONE (18:00)
[2020-07-16] MEDS ORDERED: HYDROmorphone 1mg/ml Carpuject IM ONE ×2 (18:00→19:45)
--- NOTE | 2020-07-16 18:00 | NUR ---
ED Nurse Note: patient unable to provide urine sample at this time. dr carnes aware.
--- NOTE | 2020-07-16 18:07 | Emergency Room Report ---
History of Present Illness General Chief Complaint: Pain Source: Patient, Medical Record Present Illness HPI Patient is a 34-year-old female reported history of sickle cell disease and chronic pain syndrome who is on oral Dilaudid at home presents to the ER complaining of generalized body aches. She states that yesterday she had one episode of nausea with bloody emesis that has since resolved. Patient denies any fever or chills. She denies any chest pain or shortness of breath. She denies any cough. She denies any dysuria or hematuria. Patient states that she took 8 mg of oral morphine prior to arrival. She states that she has an appoint with her pain specialist as well as well testing operator. 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 COVID-19 Screening: Negative COVID-19 COVID-19 Testing Source: 8 days ago Patient History Reviewed Nursing Documentation: PMH: Agreed; PSxH: Agreed Nursing Documentation-PMH Past Medical History: No History, Except For Hx Cardiac Problems: No - sickle cell Hx Hypertension: No Hx Pacemaker: No Hx Asthma: Yes Hx COPD: No Hx Diabetes: No Hx Cancer: No Hx Gastrointestinal Problems: Yes - KIDNEY STONE, appendectomy Hx Dialysis: No Hx Neurological Problems: No Hx Cerebrovascular Accident: No Hx Seizures: No Review of Systems All Other Systems: negative except mentioned in HPI Physical Exam Vital Signs Date Time Temp Pulse Resp B/P (MAP) Pulse Ox O2 Delivery O2 Flow Rate FiO2 07/16/20 17:45 98.1 84 14 144/76 (98) 100 Room Air Sp02 EP Interpretation: reviewed, normal General Appearance: no apparent distress, alert, GCS 15, non-toxic Head: normocephalic, atraumatic Eyes: bilateral eye normal inspection, bilateral eye PERRL ENT: hearing grossly normal, normal pharynx, no angioedema, normal voice, other - White material patient states could be tissue left auditory canal Neck: full range of motion, supple/symm/no masses Respiratory: lungs clear, no respiratory distress, no accessory muscle use Cardiovascular #1: regular rate, rhythm Gastrointestinal: non tender, soft, no guarding, no rebound Rectal: deferred Musculoskeletal: normal range of motion, no calf tenderness Neurologic: president III-XII nml as tested, oriented x3 Psychiatric: no suicidal/homicidal ideation Skin: no rash Lymphatic: no adenopathy Procedures Additional Procedure Procedure Narrative Paper tissue removed from left external auditory canal with forceps no trauma Medical Decision Making Diagnostic Impression: Primary Impression: Chronic pain Additional Impression: Foreign body in ear ER Course Patient's pain well controlled with intramuscular Dilaudid. Patient advised to follow-up with her pain specialist and well testing operator. Labs demonstrate no signi ficant acute abnormalities. Patient also advised to refrain from putting foreign bodies within her ear. After discussing risks and benefits of further diagnostics, treatment plans, as well as indications for and risks of admission, the patient is agreeable to being discharged home. I have explained that their evaluation and treatment in the emergency department today is an important step towards them achieving better health but that their evaluation today is not intended to replace further evaluation and treatment by a physician in their local clinic. I have explained that while the current findings suggest no immediate life threatening emergency they will require further evaluation and treatment by a physician of their choice in their area. They understand that it will be necessary for them to review the final reports of their ED visit with their clinic physician. We have reviewed indications for return to the Emergency Department. I have explained that additional time may need to pass and/or additional testing as an outpatient may be necessary before a definitive diagnosis can be made. They tell me they are willing to follow up as instructed within the timeframe I recommend. They appear to understand what we discussed. Additionally they understand that if they are unable to be seen by an outpatient physician they are welcome, and in fact should, return to the Emergency Depa rtment for a repeat evaluation. The patient is stable at time of discharge. Laboratory Tests Test 07/16/20 18:30 White Blood Count 8.3 K/UL (4.8-10.8) Red Blood Count 3.84 M/UL (4.20-5.40) L Hemoglobin 10.2 G/DL (12.0-16.0) L Hematocrit 33.9 % (37.0-47.0) L Mean Corpuscular Volume 88 FL (80-99) Mean Corpuscular Hemoglobin 26.6 PG (27.0-31.0) L Mean Corpuscular Hemoglobin Concent 30.1 G/DL (32.0-36.0) L Red Cell Distribution Width 15.5 % (11.6-14.8) H Platelet Count 366 K/UL (150-450) Mean Platelet Volume 6.5 FL (6.5-10.1) Neutrophils (%) (Auto) 63.9 % (45.0-75.0) Lymphocytes (%) (Auto) 28.7 % (20.0-45.0) Monocytes (%) (Auto) 5.5 % (1.0-10.0) Eosinophils (%) (Auto) 1.1 % (0.0-3.0) Basophils (%) (Auto) 0.8 % (0.0-2.0) Reticulocyte Count 1.4 % (0.5-2.0) Sodium Level 138 MMOL/L (136-145) Potassium Level 3.7 MMOL/L (3.5-5.1) Chloride Level 102 MMOL/L (98-107) Carbon Dioxide Level 26 MMOL/L (21-32) Anion Gap 10 mmol/L (5-15) Blood Urea Nitrogen 14 mg/dL (7-18) Creatinine 0.9 MG/DL (0.55-1.30) Estimated Glomerular Filtration Rate > 60 mL/min (>60) Glucose Level 106 MG/DL (74-106) Calcium Level 9.0 MG/DL (8.5-10.1) Total Bilirubin 0.2 MG/DL (0.2-1.0) Aspartate Amino Transferase (AST) 33 U/L (15-37) Alanine Aminotransferase (ALT) 15 U/L (12-78) Alkaline Phosphatase 88 U/L (46-116) Total Protein 8.1 G/DL (6.4-8.2) Albumin 3.8 G/DL (3.4-5.0) Globulin 4.3 g/dL Albumin/Globulin Ratio 0.9 (1.0-2.7) L Chest X-Ray Diagnostic Results Chest X-Ray Diagnostic Results : Chest X-Ray Ordered: Yes # of Views/Limited/Complete: 1 View Indication: Other - myalgias EP Interpretation: Yes Interpretation: no consolidation, no effusion, no pneumothorax, no acute cardiopulmonary disease Impression: No acute disease Electronically Signed by: Pura Haji MD Last Vital Signs Date Time Temp Pulse Resp B/P (MAP) Pulse Ox O2 Delivery O2 Flow Rate FiO2 07/16/20 17:45 98.1 84 14 144/76 100 Room Air Disposition: HOME, SELF-CARE Condition: Stable Scripts Ondansetron* (ZOFRAN*) 4 Mg Tablet 8 MG ORAL Q6H PRN for Nausea & Vomiting, #20 TAB Prov: Pura Haji M.D. 07/16/20 Additional Instructions: The patient was provided with discharge instructions, notified to follow-up with a primary care doctor and or specialist in the next 24-48 hours, and to return to the ED if they have worsening of their symptoms. Please note that this report is being documented using [employer] technology. This can lead to erroneous entry secondary to incorrect interpretation by the dictating instrument. Pura Haji M.D. Jul 16, 2020 18:07
--- NOTE | 2020-07-16 18:27 | NUR ---
ED Nurse Note: Report given to Abdirahman MIRANDA of telemetry unit.
--- NOTE | 2020-07-16 18:27 | NUR ---
Note jeanmarie in EDM - 07/16/20 at 1828 by YFN ED Nurse Note: Report given to Abdirahman MIRANDA of telemetry unit.
--- NOTE | 2020-07-16 18:33 | NUR ---
ED Nurse Note: able to draw purple, green, and pink top before blood stopped drawing. Unable to get blue top and red top. Pt refused butterfly insertion and redraw
[2020-07-16 18:51] LABS: BASOPHILS % (AUTO) 0.8 % (0.0-2.0); EOSINOPHILS % (AUTO) 1.1 % (0.0-3.0); HEMATOCRIT 33.9 % (37.0-47.0); HEMOGLOBIN 10.2 G/DL (12.0-16.0); LYMPHOCYTES % (AUTO) 28.7 % (20.0-45.0); MEAN CORPUSCULAR VOLUME 88 FL (80-99); MONOCYTES % (AUTO) 5.5 % (1.0-10.0); NEUTROPHILS % (AUTO) 63.9 % (45.0-75.0); PLATELET COUNT 366 K/UL (150-450); RED BLOOD COUNT 3.84 M/UL (4.20-5.40); RED CELL DISTRIBUTION WIDTH 15.5 % (11.6-14.8); WHITE BLOOD COUNT 8.3 K/UL (4.8-10.8)
[2020-07-16 18:54] LABS: ANION GAP 10 mmol/L (5-15); BLOOD UREA NITROGEN 14 mg/dL (7-18); CARBON DIOXIDE 26 MMOL/L (21-32); CHLORIDE 102 MMOL/L (98-107); CREATININE 0.9 MG/DL (0.55-1.30); POTASSIUM 3.7 MMOL/L (3.5-5.1); SODIUM 138 MMOL/L (136-145)
[2020-07-16 18:59] LABS: ALANINE AMINOTRANSFERASE 15 U/L (12-78); ALBUMIN 3.8 G/DL (3.4-5.0); ALBUMIN/GLOBULIN RATIO 0.9 (1.0-2.7); ALKALINE PHOSPHATASE 88 U/L (46-116); ASPARTATE AMINO TRANSFERASE 33 U/L (15-37); BILIRUBIN,TOTAL 0.2 MG/DL (0.2-1.0)
--- NOTE | 2020-07-16 19:08 | NUR ---
HAND-OFF: Report given to Jeff RN.
[2020-07-16] MEDS ORDERED: ZOFRAN4 M3 ORAL (19:31)
[2020-07-16 19:45] VITALS: BP 145/85
--- NOTE | 2020-07-17 14:52 | Diagnostic Imaging Report ---
Indication: Chest pain Technique: XRAY Chest 1v Comparison: 07/08/2020 Findings: Heart size and mediastinal contours are within normal limits for AP technique. There is no focal airspace consolidation, pneumothorax or pleural effusion. Osseous structures demonstrate no acute abnormality. Density projects over the left neck. This is likely external to the patient. Impression: No radiographic evidence of acute cardiopulmonary disease.
== END 2020-07-16 19:45 | disposition home or self-care (01) ==
LOC: EMR 17:45
DX: G89.29 Other chronic pain (principal); T16.2XXA Foreign body in left ear, initial encounter; D57.1 Sickle-cell disease without crisis; J45.909 Unspecified asthma, uncomplicated; X58.XXXA Exposure to other specified factors, initial encounter; Y93.9 Activity, unspecified; Y92.9 Unspecified place or not applicable; Z87.442 Personal history of urinary calculi; Z88.5 Allergy status to narcotic agent; Z88.8 Allergy status to other drugs, medicaments and biological substances
CPT/HCPCS: 36415; 71045; 80053; 85025; 85044; 86850; 86900; 86901; 96372; 99283; J1170; J1200; Q0162

== ENCOUNTER 2020-07-18 20:40 | Emergency (ER) | payer MEDICARE, OTHER ==
[~2020-07-18] VITALS: Ht 157.5 cm; Wt 66.7 kg
[~2020-07-18 20:40] MED LIST changes: +ZOFRAN4 M3 ORAL
--- NOTE | 2020-07-18 21:00 | NUR ---
ED Nurse Note: Recieved pt walk in from home with c/o pain to chest, back and generalized, pt states its from her sickle cell, pt rates pain at 9/10 and sharp, pt is ambulatory, no chest pain or sob or labored breathingnoted, pt on cell phone conversing and laughing, pt assisted to bed, refuses to gown or give urine, states "I just need dilaudid and zofran and benadryl", will resume care as ordered and closely monitor.
[2020-07-18] MEDS ORDERED: HYDROmorphone 1mg/ml Carpuject IM ONE (21:15)
--- NOTE | 2020-07-18 21:40 | NUR ---
ED Nurse Note: Pt medicated with IM dilaudid for pain, pt refused to allow any testing or care until she gets shot for pain, pt asked to go to bathroom and now not present, pt not in lobby either, MD and charge nurse informed immediately, will continue to locate pt before eloping.
[2020-07-18 22:30] VITALS: BP 115/76
--- NOTE | 2020-07-18 22:30 | NUR ---
ED Nurse Note: Pt has not returned, pt noted in parking lot in car driving away, informed and charge nurse aware also, pt eloped.
--- NOTE | 2020-07-18 22:46 | Diagnostic Imaging Report ---
EXAM: XR Chest, 1 View CLINICAL HISTORY: CP TECHNIQUE: Frontal view of the chest. COMPARISON: No relevant prior studies available. FINDINGS: Lungs: No consolidation. Pleural space: No pleural effusion. No pneumothorax. Heart: Unremarkable. No cardiomegaly. IMPRESSION: No acute cardiopulmonary abnormality.
--- NOTE | 2020-07-22 11:45 | Emergency Room Report ---
History of Present Illness General Chief Complaint: Pain Present Illness HPI Patient is a 34-year-old female presents for increased chest discomfort. Prior history of sickle cell disease. Had multiple ER visits in the past with similar symptoms. Reports having worsening pain as well as nausea. States she normally takes Dilaudid. Reports having allergy to morphine although I have given this to her in the past without any reaction. Denies any fever. Reports having one episode of emesis. Denies being . States he is recently had laboratory testing performed. 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 Had recently had labs done at the facility with adequate hemoglobin. She does report having some hematemesis. Allergies: Coded Allergies: METOCLOPRAMIDE (Verified Allergy, Mild, Rash, 07/27/12) KETOROLAC (Verified Allergy, Unknown, 11/25/13) MORPHINE (Verified Allergy, Unknown, 06/13/20) PROCHLORPERAZINE EDISYLATE (Verified Adverse Reaction, Intermediate, Shortness of Breath, 05/30/12) ANX PROCHLORPERAZINE MALEATE (Verified Adverse Reaction, Intermediate, Shortness of Breath, 05/30/12) ANX COVID-19 Screening Contact w/high risk pt: No Recent Travel to affected area: No Experienced COVID-19 symptoms?: No COVID-19 Testing performed RUBBER HEEL AND SOLE PRESS TENDER: No Patient History Past Medical History: see triage record Last Menstrual Period: 06/28/2020 Reviewed Nursing Documentation: PMH: Agreed; PSxH: Agreed Nursing Documentation-PMH Hx Cardiac Problems: No - sickle cell Hx Hypertension: No Hx Pacemaker: No Hx Asthma: Yes Hx COPD: No Hx Diabetes: No Hx Cancer: No Hx Gastrointestinal Problems: Yes - KIDNEY STONE, appendectomy Hx Dialysis: No Hx Neurological Problems: No Hx Cerebrovascular Accident: No Hx Seizures: No Review of Systems All Other Systems: negative except mentioned in HPI Physical Exam Vital Signs Date Time Temp Pulse Resp B/P (MAP) Pulse Ox O2 Delivery O2 Flow Rate FiO2 07/18/20 20:45 98.1 92 18 115/76 (89) 96 Room Air Sp02 EP Interpretation: reviewed, normal General Appearance: normal inspection, well appearing, no apparent distress, alert, GCS 15 Head: atraumatic ENT: normal ENT inspection, hearing grossly normal, normal voice Neck: normal inspection, full range of motion, supple, no bony tend Respiratory: normal inspection, lungs clear, normal breath sounds, no respiratory distress, no retraction, no wheezing Cardiovascular #1: regular rate, rhythm, no edema Gastrointestinal: normal inspection, normal bowel sounds, non tender, soft, no guarding, no hernia Genitourinary: no CVA tenderness Musculoskeletal: normal inspection, back normal, normal range of motion Neurologic: alert, motor strength/tone normal, assistant construction superintendent III-XII nml as tested, r esponsive, speech normal, normal inspection Psychiatric: normal inspection, judgement/insight normal, mood/affect normal Medical Decision Making Diagnostic Impression: Primary Impression: Sickle cell disease Additional Impression: Chronic pain ER Course Patient presented for sickle cell pain. Differential diagnosis include was not limited to anemia, sickle cell crisis, acute chest syndrome among others. Because of patient's complexity laboratory testing and pain medications were ordered. Patient was given IM Dilaudid as well as Zofran for pain and nausea. I ordered laboratory testing to be performed to evaluate for post patient's counts. Patient has had Dilaudid multiple times in the past. She was noted to have eloped without notifying staff subsequently. Patient did not appear to be in any acute distress at the time. This medical record is generated with [employer] dental patient coordinator software. There may be some dental patient coordinator discrepancies related to use of this software Last Vital Signs Date Time Temp Pulse Resp B/P (MAP) Pulse Ox O2 Delivery O2 Flow Rate FiO2 07/18/20 22:30 98.0 18 115/76 96 Room Air 07/18/20 20:45 92 Status: improved Disposition: ELOPED Condition: Stable Referrals: NOT CHOSEN IPA/,REFERRING (PCP) Dante Cardona MD Jul 22, 2020 11:44
== END 2020-07-18 22:30 | disposition left against medical advice (07) ==
LOC: EMR 20:58
DX: R07.9 Chest pain, unspecified (principal); R11.2 Nausea with vomiting, unspecified
CPT/HCPCS: 71045; 96361; 96372; 96374; 99284; J1170

== ENCOUNTER 2020-07-25 20:28 | Emergency (ER) | payer MEDICARE, OTHER ==
[~2020-07-25] VITALS: Ht 157.5 cm; Wt 66.2 kg
--- NOTE | 2020-07-25 20:46 | NUR ---
ED Nurse Note: Pt ambulated into ED. C/o left-side pain x2 nights. Reports she took norco and dilaudid pills prior to arrival to ED. Pt is AAO x4.
[2020-07-25 20:47] VITALS: BP 123/89
--- NOTE | 2020-07-25 21:10 | NUR ---
ED NURSE NOTE: Attempted to stick pt for lab draw, unsuccessful. Lab called for draw. Pt requesting pain meds, Dr. Umanzor aware, no new orders given.
--- NOTE | 2020-07-25 21:34 | Emergency Room Report ---
History of Present Illness General Chief Complaint: Pain Source: Patient Present Illness HPI Disclaimer: Please note that this report is being documented using [employer] technology. This can lead to erroneous entry secondary to incorrect interpretation by the dictating instrument. HPI: 34-year-old female with sickle cell SS type, asthma presents for evaluation of left-sided hip pain. Pain began 2 days ago. She reports no trauma but constant pain over the left side of the hip. This consistent with her prior episodes of sickle cell. She is unsure if she has had avascular necrosis in the past. Denies recent fall or trauma. Still able to ambulate. Pain is been constant. Does not radiate down the leg. Denies urinary retention, fecal incontinence, midline back pain, lower extremity weakness or saddle anesthesia. She takes p.o. Dilaudid at home and states it is not controlling her pain adequately. She reports seeing her scraper operator, Dr. Silva, last week who changed her pain medication dose and increased her hydroxyurea. She has not yet started her new pain medication regimen as she has not yet been to the pharmacy. Otherwise denies chest pain, palpitations, shortness of breath, lightheadedness. She states labs were performed this week at her scraper operator office and had a hemoglobin of 9.3. States she has not needed a transfusion in 4 months. PMH: Sickle cell, asthma PSH: Reviewed Allergies: Reviewed Social Hx: Reviewed Allergies: Coded Allergies: METOCLOPRAMIDE (Verified Allergy, Mild, Rash, 07/27/12) KETOROLAC (Verified Allergy, Unknown, 11/25/13) MORPHINE (Verified Allergy, Unknown, 06/13/20) PROCHLORPERAZINE EDISYLATE (Verified Adverse Reaction, Intermediate, Shortness of Breath, 05/30/12) ANX PROCHLORPERAZINE MALEATE (Verified Adverse Reaction, Intermediate, Shortness of Breath, 05/30/12) ANX COVID-19 Screening Contact w/high risk pt: No Recent Travel to affected area: No Experienced COVID-19 symptoms?: No COVID-19 Testing performed BENCHROOM SHOP OPTICIAN: No Nursing Documentation-PMH Hx Cardiac Problems: No - sickle cell Hx Hypertension: No Hx Pacemaker: No Hx Asthma: Yes Hx COPD: No Hx Diabetes: No Hx Cancer: No Hx Gastrointestinal Problems: Yes - KIDNEY STONE, appendectomy Hx Dialysis: No Hx Neurological Problems: No Hx Cerebrovascular Accident: No Hx Seizures: No Review of Systems All Other Systems: negative except mentioned in HPI Physical Exam Vital Signs Date Time Temp Pulse Resp B/P (MAP) Pulse Ox O2 Delivery O2 Flow Rate FiO2 07/25/20 20:38 98.4 87 19 123/89 (100) 98 Room Air General: Awake and alert, no acute distress HEENT: NC/AT. EOMI. Resp: Normal work of breathing Skin: Intact. No abrasions, laceration or rash over the exposed skin MSK: Normal tone and bulk. Moving all extremities. No obvious deformity. There is tenderness palpation over the lateral aspect of the hip. Full range of motion in the left hip. No midline back pain. There is tenderness extending over the superior gluteal down the lateral aspect of the left hip without palpable deformity. Full range of motion at the knee and ankle. No saddle anesthesia. Neuro: Awake and alert. Mentating appropriately Medical Decision Making Diagnostic Impression: Primary Impression: Hip pain ER Course 34-year-old female presents with atraumatic unilateral left hip pain. Likely sickle cell pain but x-ray was ordered to evaluate for avascular necrosis. Originally planned to draw labs however patient declined stating that she just had full lab panel and her hemoglobin is 9.3. Patient then declined x-ray stating she felt better after receiving IM pain medication and warm compress over the left hip. She declined any further work-up at this time requested discharge home. Stable for outpatient follow-up with her scraper operator. Last Vital Signs Date Time Temp Pulse Resp B/P (MAP) Pulse Ox O2 Delivery O2 Flow Rate FiO2 07/25/20 20:47 98.4 85 19 123/89 98 Room Air Disposition: HOME, SELF-CARE Condition: Stable Referrals: NOT CHOSEN IPA/,REFERRING (PCP) Kalen Umanzor MD Jul 25, 2020 21:34
[2020-07-25] MEDS ORDERED: HYDROmorphone 1mg/ml Carpuject IM ONE (21:45)
--- NOTE | 2020-07-25 21:50 | NUR ---
ED Nurse Note: Pt requests that I let Dr. Umanzor that she is feeling better. Advised Dr. Padilla as requested, advises he still wants pt to have xray.
--- NOTE | 2020-07-25 21:55 | NUR ---
ED Nurse Note: Pt advises she is feeling better and does not want xrays. Dr. Noé stafford.
--- NOTE | 2020-07-25 22:04 | NUR ---
ER DISCHARGE NOTE: Patient is cleared to be discharged per ERMD, pt is aox4, on room air, with stable vital signs. pt was given d/c instructions, pt was able to verbalize understanding, pt id band removed. Pt is able to ambulate with steady gait. Pt took all belongings.
[2020-07-25 22:05] VITALS: BP 127/63
== END 2020-07-25 22:00 | disposition home or self-care (01) ==
LOC: EMR 20:56
DX: M25.552 Pain in left hip (principal); D57.1 Sickle-cell disease without crisis; J45.909 Unspecified asthma, uncomplicated; Z87.442 Personal history of urinary calculi; Z88.5 Allergy status to narcotic agent; Z88.8 Allergy status to other drugs, medicaments and biological substances
CPT/HCPCS: 81025; 96372; 99283; J1170

== ENCOUNTER 2020-08-24 17:57 | Emergency (ER) | payer MEDICARE, OTHER ==
[~2020-08-24] VITALS: Ht 157.5 cm; Wt 66.7 kg
--- NOTE | 2020-08-24 19:25 | Emergency Room Report ---
History of Present Illness General Chief Complaint: To Be Triaged Present Illness HPI 34 YO female with hx of sickle cell disease and frequent ED sickle cell pain visits presents to the ED c/o 04/04 in severity bilateral hip pain, thigh, and back pain. She reports running out of her hydroxyurea and will need a refill. She reports recent blood work with hgb of 8.3. She denies CP SOB, or palpitations. She denies trauma or fall. She reports having some vomiting as well due to pain. She reports her symptoms are similar in characteristic to her previous sickle cell crisis. She denies blood in the vomit. She denies fevers or chills. She denies abdominal pain or tenderness. She denies dysuria, hematuria, urinary urgency or frequency. She denies or suspicion of . No other aggravating or relieving factors at this time. Pt. denies any other symptoms. Allergies: Coded Allergies: METOCLOPRAMIDE (Verified Allergy, Mild, Rash, 07/27/12) KETOROLAC (Verified Allergy, Unknown, 11/25/13) MORPHINE (Verified Allergy, Unknown, 06/13/20) PROCHLORPERAZINE EDISYLATE (Verified Adverse Reaction, Intermediate, Shortness of Breath, 05/30/12) ANX PROCHLORPERAZINE MALEATE (Verified Adverse Reaction, Intermediate, Shortness of Breath, 05/30/12) ANX COVID-19 Screening Contact w/high risk pt: No Recent Travel to affected area: No Experienced COVID-19 symptoms?: No Patient History Past Medical History: see triage record Past Surgical History: none Pertinent Family History: none Now: No Reviewed Nursing Documentation: PMH: Agreed; PSxH: Agreed Nursing Documentation-PMH Hx Cardiac Problems: No - sickle cell Hx Hypertension: No Hx Pacemaker: No Hx Asthma: Yes Hx COPD: No Hx Diabetes: No Hx Cancer: No Hx Gastrointestinal Problems: Yes - KIDNEY STONE, appendectomy Hx Dialysis: No Hx Neurological Problems: No Hx Cerebrovascular Accident: No Hx Seizures: No Review of Systems All Other Systems: negative except mentioned in HPI Medical Decision Making PA Attestation Dr. Umanzor is my supervising Physician whom patient management has been discussed with. Diagnostic Impression: Primary Impression: Sickle cell pain crisis ER Course 34 YO female with hx of sickle cell disease and frequent ED sickle cell pain visits presents to the ED c/o 04/04 in severity bilateral hip pain, thigh, and back pain. She reports running out of her hydroxyurea and will need a refill. She reports recent blood work with hgb of 8.3. She denies CP SOB, or palpitations. She denies trauma or fall. She reports having some vomiting as well due to pain. She reports her symptoms are similar in characteristic to her previous sickle cell crisis. She denies blood in the vomit. She denies fevers or chills. She denies abdominal pain or tenderness. She denies dysuria, hematuria, urinary urgency or frequency. She denies or suspicion of . No other aggravating or relieving factors at this time. Pt. denies any other symptoms. Ddx considered but are not limited to Sickle cell crisis, ACS, Avascular Necrosis, Infection, Cardiac pathology, DVT, Fracture, Dislocation Vital signs: are WNL, pt. is afebrile. H&PE are most consistent with Sickle cell crisis. Pt. ambulatory, She is non- toxic in appearance. ORDERS: - Pt. declines blood work or UA. ED INTERVENTIONS: Pt. requesting. just pain medication and medication refill. - 1mg + 25mg Benadryl / Dilaudid for pain IM . DISCHARGE: At this time pt. is stable for d/c to home. Will provide printed patient care instructions, and any necessary prescriptions. Care plan and follow up instructions have been discussed with the patient prior to discharge. Disposition: HOME, SELF-CARE Condition: Stable Scripts Hydroxyurea* (HYDREA 500mg*) 500 Mg Capsule 500 MG PO BID for 30 Days, #60 CAP Prov: Fallon Falcon 08/24/20 Patient Instructions: Sickle Cell Anemia, Adult, [id number] Additional Instructions: Take medications as directed. You were given a strong opiate pain medication here. Do not drink alcohol, drive or operate heavy machinery for the next 6 hours. This medication may cause drowsiness and can impair your judgement. Follow up with a Primary Care Provider in 3-5 days, even if your symptoms have resolved. Return sooner to ED if new symptoms occur, or current symptoms become worse. - Please note that this Emergency Department Report was dictated using [employer] police sergeant technology software, occasionally this can lead to erroneous entry secondary to interpretation by the dictation equipment. Fallon Falcon 1, 2021 19:25
[2020-08-24] MEDS ORDERED: HYDREA500 MG PO (19:26)
[2020-08-24] MEDS ORDERED: HYDROmorphone 1mg/ml Carpuject IM ONE (19:30)
[2020-08-24] MEDS ORDERED: DiphenhydrAMINE 50mg/ml Inj IM ONE (19:30)
--- NOTE | 2020-08-24 20:15 | NUR ---
ED Nurse Note: Meds given, asked pt to stay for 15-20mins after giving meds
--- NOTE | 2020-08-24 20:37 | NUR ---
ED Nurse Note: Patient walked into the ER with c/o chronic nausea, vomiting and body pain. Patient has hx of sickle cell. Patient is irritable and impatient asking for pain meds while waiting at the triage area. Patient is AAOX4, ambulatory, VSS as documented. ERPA at bedside
--- NOTE | 2020-08-24 20:38 | NUR ---
ER DISCHARGE NOTE: Patient is cleared to be discharged per ERMD, pt is aox4, on room air, with stable vital signs. pt was given dc and prescription instructions, pt was able to verbalize understanding, pt id band removed . pt is able to ambulate with steady gait. pt took all belongings.
[2020-08-24 20:40] VITALS: BP 134/85
== END 2020-08-24 20:45 | disposition home or self-care (01) ==
LOC: EMR 20:11
DX: D57.00 Hb-SS disease with crisis, unspecified (principal); Z88.6 Allergy status to analgesic agent; Z90.89 Acquired absence of other organs; Z87.442 Personal history of urinary calculi
CPT/HCPCS: 96372; 99283; J1170; J1200

== ENCOUNTER 2020-09-20 19:20 | Emergency (ER) | payer MEDICARE, OTHER ==
--- NOTE | 2020-09-20 19:55 | NUR ---
ED Nurse Note: I went to the waiting area to triage the pt but pt is not in the waiting area. i will check again to triage the pt.
--- NOTE | 2020-09-20 21:30 | NUR ---
ED Nurse Note: pt still not in the waiting room.
--- NOTE | 2020-09-21 14:18 | Emergency Room Report ---
History of Present Illness General Chief Complaint: To Be Triaged Present Illness Allergies: Coded Allergies: METOCLOPRAMIDE (Verified Allergy, Mild, Rash, 07/27/12) KETOROLAC (Verified Allergy, Unknown, 11/25/13) MORPHINE (Verified Allergy, Unknown, 06/13/20) PROCHLORPERAZINE EDISYLATE (Verified Adverse Reaction, Intermediate, Shortness of Breath, 05/30/12) ANX PROCHLORPERAZINE MALEATE (Verified Adverse Reaction, Intermediate, Shortness of Breath, 05/30/12) ANX COVID-19 Screening Contact w/high risk pt: No Recent Travel to affected area: No Experienced COVID-19 symptoms?: No Nursing Documentation-PMH Hx Cardiac Problems: No - sickle cell Hx Hypertension: No Hx Pacemaker: No Hx Asthma: Yes Hx COPD: No Hx Diabetes: No Hx Cancer: No Hx Gastrointestinal Problems: Yes - KIDNEY STONE, appendectomy Hx Dialysis: No Hx Neurological Problems: No Hx Cerebrovascular Accident: No Hx Seizures: No Medical Decision Making Diagnostic Impression: Primary Impression: LWBS ER Course Patient left without being seen Disposition: LEFT W/OUT BEING SEEN Condition: Unknown Referrals: NOT CHOSEN IPA/,REFERRING (PCP) Dante Cardona MD Sep 21, 2020 14:18
== END 2020-09-20 21:30 | disposition left against medical advice (07) ==
LOC: EMR 19:54
DX: Z53.21 Procedure and treatment not carried out due to patient leaving prior to being seen by health care provider (principal); Z90.89 Acquired absence of other organs; Z87.442 Personal history of urinary calculi; Z88.8 Allergy status to other drugs, medicaments and biological substances